=== PATIENT | female | born 1940 | race Caucasian/White ===

== ENCOUNTER 2016-10-19 05:10 | Day surgery (SDC) | payer OTHER ==
[2016-10-12 10:50] VITALS: BMI 31.0
[~2016-10-19] VITALS: Ht 162.6 cm; Wt 83.6 kg
[~2016-10-19 05:10] MED LIST: ASPEC81 PO; CHOL100010 PO; FURO-85 PO; LNX125 PO; METO1TAB69 PO; POTA10CA28 PO; VITA100C4 PO; WARF5TAB90 PO
[2016-10-19 05:37] VITALS: BP 147/104; PULSE 80; TEMP 36.6; O2SAT 97; Ht 162.6 cm; Wt 83.6 kg
[2016-10-19] MEDS ORDERED: CEFAZOLIN 2000 MG/60 ML D5W IV SCH (06:00)
[2016-10-19] MEDS ORDERED: LACTATED RINGER'S 1000ML 1,000 ML IV SCH (06:00)
[2016-10-19] MEDS ORDERED: FENTANYL CITRATE INJ 50 MCG/1 ML 2 ML VIAL ONE (06:28)
[2016-10-19] MEDS ORDERED: PROPOFOL IV EMULSION 10 MG/ML 20 ML VIAL IV ONE (06:28)
[2016-10-19] MEDS ORDERED: MIDAZOLAM HCL 1 MG/ML 2ML VIAL ONE (06:28)
[2016-10-19] MEDS ORDERED: THROMBIN FOR SOLN 20000 UNIT KIT ONE (06:36)
[2016-10-19] MEDS ORDERED: HEPARIN SOD (PORCINE) 1000 UNIT/ML 10 ML VIAL ONE (06:36)
[2016-10-19] MEDS ORDERED: LIDOCAINE HCL 1% 20 ML VIAL ONE (06:36)
[2016-10-19] MEDS ORDERED: CEFAZOLIN SOD 1 GM VIAL ONE (06:36)
--- NOTE | 2016-10-19 06:44 | History & Physical Bridge Note ---
H&P Re-Evaluation Bridge Note: I have examined the patient, reviewed the History & Physical and in the interval since the performance of the History & Physical I have noted the following changes of clinical significance: No changes noted
[2016-10-19] MEDS ORDERED: HYDR-5688 PO ×2 (07:04→07:40)
--- NOTE | 2016-10-19 07:07 | Discharge Instructions ---
Discharge Instructions Date of Service Oct 19, 2016. Visit Reason for Visit: Port-A Cath In Place; Malignant Neoplasm Of Uterus Discharge Discharge Diagnosis / Problem: A-port removal Discharge Goals Goal(s): Increase independence Medications Restart Stopped Medication(s): restart coumadin tomorrow () Activity Recommendations Activity Limitations: as noted below Shower/Bathe: keep incision dry (for 2 days) Driving or Machine Use: Do not drive if taking [place] Anesthesia . Post Anesthesia Instructions: If you have had General Anesthesia or IV Sedation: * Do not drive today. * Resume driving when surgeon permits. * Do not make important decisions or sign legal documents today. * Call surgeon for: 1. Temperature elevations greater than 101 degrees F. 2. Uncontrollable pain. 3. Excessive bleeding. 4. Persistent nausea and vomiting. 5. Medication intolerance (nausea, vomiting or rash). * For nausea and vomiting use only clear liquids such as: tea, soda, bouillon until nausea subsides, then gradually increase diet as tolerated. * If you have any concerns or questions, call your surgeon's office. If physician is unavailable and it is an emergency, call 911 or go to the nearest emergency room. . Instructions / Follow-Up Instructions / Follow-Up Dr. Mcintyre's office in 2 weeks to have sutures removed, [phone] Diet Recommendations Recommended Home Diet: no limitations Pending Studies Studies pending at discharge: no Medical Emergencies . Who to Call and When: Medical Emergencies: If at any time you feel your situation is an emergency, please call 911 immediately. . Non-Emergent Contact Non-Emergency issues call your: Surgeon Call Non-Emergent contact if: you have a fever, temperature is above 101.5, your pain is not controlled, wound has increased redness, you have any medication questions . . "Provider Documentation" section prepared by Amos Dias. .
[2016-10-19 07:30] VITALS: BP 127/82; PULSE 18; PULSE 74; TEMP 36.5; O2SAT 96
--- NOTE | 2016-10-19 07:31 | [facility] Post Operative Brief Note ---
Immediate Operative Summary Operative Date Oct 19, 2016. Pre-Operative Diagnosis port, h/o uterine Ca Post-Operative Diagnosis same Procedure(s) Performed port removal Surgeon Francisco Javier Clam Shucker Surgeon(s) nurses Estimated Blood Loss 5cc Findings port incision made through scar above port in Lt chest using 1% pl lido port dissected free and removed with catheter deep tissue reapproximated with 2-0 plain suture skin closed with 4-0 nylon Specimens port Anesthesia local/ sedation Complication(s) None Disposition Recovery Room / PACU
[2016-10-19] MEDS ORDERED: HYDROCODONE/ACETAMOPHEN 5/325MG TAB PO PRN ×2 (07:45)
[2016-10-19] MEDS ORDERED: ONDANSETRON INJ 2 MG/ML 2 ML VIAL IV PRN (07:45)
[2016-10-19 08:00] VITALS: BP 121/68; PULSE 77; TEMP 36.6; O2SAT 98
[2016-10-19] MEDS ORDERED: ATROPINE SULFATE 0.1 MG/ML 5ML SYR IV PRN (08:00)
[2016-10-19] MEDS ORDERED: EpHEDrine SULFATE INJ 50 MG/ML AMP IV PRN (08:00)
--- NOTE | 2016-10-19 08:01 | Anesthesiology Progress Note ---
Anesthesia Post Op Note Date & Time Oct 19, 2016 at 08:01 Vital Signs Pain Intensity: 0 Vital Signs Past 12 Hours Date Time Temp Pulse Resp B/P (MAP) Pulse Ox O2 Delivery O2 Flow Rate FiO2 10/19/16 07:30 36.5 18 18 127/82 96 Room Air 10/19/16 05:37 36.6 80 20 147/104 (118) 97 Room Air Notes Mental Status: alert / awake / arousable, participated in evaluation Pt Amnestic to Procedure: Yes Nausea / Vomiting: adequately controlled Pain: adequately controlled Airway Patency, RR, SpO2: stable & adequate BP & HR: stable & adequate Hydration State: stable & adequate Anesthetic Complications: no major complications apparent
[2017-01-04] MEDS ORDERED: METO50TA7 PO (14:20)
== END 2016-10-19 08:30 | disposition home or self-care (01) ==
LOC: C.ACU 05:10
PROVIDERS: ATTEND Surgery
DX: C55 Malignant neoplasm of uterus, part unspecified (principal); Z95.828 Presence of other vascular implants and grafts; I48.91 Unspecified atrial fibrillation; I10 Essential (primary) hypertension; M19.90 Unspecified osteoarthritis, unspecified site; E66.9 Obesity, unspecified; Z68.31 Body mass index [BMI] 31.0-31.9, adult; Z85.42 Personal history of malignant neoplasm of other parts of uterus; Z92.21 Personal history of antineoplastic chemotherapy; Z98.49 Cataract extraction status, unspecified eye; Z79.01 Long term (current) use of anticoagulants

== ENCOUNTER → 2016-12-28 | Outpatient (CLI) | payer OTHER ==
[~2016-12-28] MED LIST changes: -LNX125 PO; +METO50TA7 PO
== END | disposition home or self-care (01) ==
LOC: C.LABBC 14:31
PROVIDERS: ATTEND Ophthalmology
DX: H26.491 Other secondary cataract, right eye (principal)

== ENCOUNTER → 2017-11-23 | Outpatient (CLI) | payer OTHER ==
[~2017-11-23] MED LIST changes: -ASPEC81 PO; +ASPI-320 PO; +ASPI81TA28 PO; +BIOT1TAB5 PO; +CMD/25 PO; +DEXA1TAB16 PO; +DXM/4 PO; -METO1TAB69 PO; +METO50TA16 PO; -METO50TA7 PO; +METO50TA8 PO; +POTA10TA30 PO; +PROC10TA PO; +VTMD1000 PO; +WARF2.5T8 PO
[2017-11-23 16:20] LABS: HEMATOCRIT 47.8 % (37-47); HEMOGLOBIN 16.3 g/dL (12.0-16.0); MEAN CELL VOLUME 96.2 fL (80-100); MEAN CORPUSCULAR HEMOGLOBIN 32.8 pg (25-34); MEAN CORPUSCULAR HGB CONC 34.1 g/dl (32-36); MEAN PLATELET VOLUME 12.9 fL (7.4-10.4); PLATELET COUNT 187 K/uL (130-400); RED CELL DISTRIBUTION WIDTH CV 13.2 % (11.5-14.5); RED CELL DISTRIBUTION WIDTH SD 46.5 fL (36.4-46.3); WHITE BLOOD COUNT 0.69 K/uL (4.8-10.8)
[2017-11-23 16:24] LABS: ALKALINE PHOSPHATASE 100 U/L (45-117); ALT/SGPT 37 U/L (12-78); AST/SGOT 19 U/L (15-37); BLOOD UREA NITROGEN 26 mg/dl (7-18); CALCIUM 8.5 mg/dl (8.5-10.1); CARBON DIOXIDE 24 mmol/L (21-32); CREATININE 0.74 mg/dl (0.60-1.20); GLUCOSE 99 mg/dl (70-99); SODIUM 135 mmol/L (136-145); TOTAL PROTEIN 6.2 gm/dl (6.4-8.2)
[2017-11-23 16:48] LABS: BASO % 1.4 %; BASO ABS # 0.01 K/uL (0-0.2); IG# 0.02 K/uL (0.00-0.02); LYMPH % 81.2 %; LYMPH ABS # 0.56 K/uL (1.2-3.4); MONO % 5.8 %; MONO ABS # 0.04 K/uL (0.11-0.59); NEUT % 8.7 %; NEUT ABS # 0.06 K/uL (1.4-6.5)
== END | disposition home or self-care (01) ==
LOC: C.LABSPEC 15:24
PROVIDERS: ATTEND Internal Medicine Hematology & Oncology
DX: C54.1 Malignant neoplasm of endometrium (principal)

== ENCOUNTER 2017-11-27 13:24 | Inpatient (IN) | payer OTHER ==
[~2017-11-27] VITALS: Ht 162.6 cm; Wt 88.3 kg
[~2017-11-27 13:24] MED LIST changes: -ASPI81TA28 PO; -CMD/25 PO; -DEXA1TAB16 PO; -METO50TA16 PO; -POTA10TA30 PO; -VTMD1000 PO
[2017-11-27] MEDS ORDERED: SODIUM CHLORIDE 0.9% 1000ML 1,000 ML IV STA (14:03)
[2017-11-27] MEDS ORDERED: METO50TA16 PO (14:30)
[2017-11-27] MEDS ORDERED: ASPI81TA28 PO (14:30)
[2017-11-27] MEDS ORDERED: CMD/25 PO (14:30)
[2017-11-27] MEDS ORDERED: PROC10TA PO (14:30)
[2017-11-27] MEDS ORDERED: DEXA1TAB16 PO (14:30)
[2017-11-27] MEDS ORDERED: DILTIAZEM BOLUS / DRIP IV STA (14:34)
[2017-11-27] MEDS ORDERED: DILTIAZEM BOLUS FROM BAG IV ONE (14:45)
[2017-11-27 14:57] LABS: INR 2.5 (0.9-1.1)
[2017-11-27] MEDS ORDERED: DILTIAZEM HCL 5 MG/ML 5 ML VIAL ONE (15:09)
[2017-11-27] MEDS: DILTIAZEM HCL INJ 125 MG in DEXTROSE 5% 100ML IV PRN ×2 (15:15→23:30)
[2017-11-27 15:16] LABS: ALBUMIN 2.5 gm/dl (3.4-5.0); ALKALINE PHOSPHATASE 134 U/L (45-117); ALT/SGPT 30 U/L (12-78); AST/SGOT 15 U/L (15-37); BLOOD UREA NITROGEN 18 mg/dl (7-18); CALCIUM 8.4 mg/dl (8.5-10.1); CARBON DIOXIDE 23 mmol/L (21-32); GLUCOSE 110 mg/dl (70-99); LIPASE 98 U/L (73-393); PHOSPHORUS 2.6 mg/dl (2.5-4.9); POTASSIUM 3.8 mmol/L (3.5-5.1); SODIUM 131 mmol/L (136-145); TOTAL PROTEIN 6.4 gm/dl (6.4-8.2)
[2017-11-27 16:00] LABS: HEMATOCRIT 45.8 % (37-47); HEMOGLOBIN 16.4 g/dL (12.0-16.0); MEAN CELL VOLUME 94.6 fL (80-100); MEAN CORPUSCULAR HEMOGLOBIN 33.9 pg (25-34); MEAN CORPUSCULAR HGB CONC 35.8 g/dl (32-36); PLATELET COUNT 189 K/uL (130-400); RED CELL DISTRIBUTION WIDTH CV 12.9 % (11.5-14.5); RED CELL DISTRIBUTION WIDTH SD 44.8 fL (36.4-46.3); WHITE BLOOD COUNT 1.89 K/uL (4.8-10.8)
--- NOTE | 2017-11-27 16:34 | DIAGNOSTIC IMAGING REPORT ---
ABDOMEN 2VIEW W/PA CHEST RTN CLINICAL HISTORY: 77 years-old Female presenting with diarrhea. TECHNIQUE: PA view of the chest and supine and upright views of the abdomen were obtained. COMPARISON: CT from 09/26/2017 and chest x-ray from 12/03/2015. FINDINGS: Atherosclerosis of the aortic arch. Cardiac silhouette top normal in size. Linear opacity in the left midlung. No other focal opacity. No large effusion or pneumothorax. Nonobstructive bowel gas pattern. No gross pneumoperitoneum. Allowing for bowel gas and stool, no calcifications to suggest nephrolithiasis. Numerous pelvic phleboliths. Degenerative changes of the spine. Advanced degenerative changes of the bilateral hip joints. IMPRESSION: 1. Minimal atelectasis or scarring in the left midlung. No convincing evidence of acute cardiopulmonary disease. 2. No radiographic evidence of acute intra-abdominal pathology. Electronically signed by: Robert Gaytan M.D. 11/27/2017 4:32 PM Dictated Date/Time: 11/27/2017 4:29 PM
[2017-11-27] MEDS ORDERED: PIPERACILLIN/TAZOBACTAM 3.375 GM/100ML D5W IV STA (18:08)
[2017-11-27] MEDS ORDERED: VTMD1000 PO (19:20)
[2017-11-27] MEDS ORDERED: POTA10TA30 PO (19:21)
[2017-11-27] MEDS ORDERED: FURO-85 PO (19:21)
--- NOTE | 2017-11-27 19:26 | EMERGENCY ROOM VISIT NOTE ---
History Report prepared by Leanne: Nickie Bae Under the Supervision of: Dr. Samina Guillen D.O. First contact with patient: 13:40 Chief Complaint: NAUSEA Stated Complaint: NOT FEELING WELL S/P CHEMO, NAUSEA, DIZZY Nursing Triage Summary: triage note: pt reports last chemo 1 week ago for enometrial cancer. pt reports increased weakness, nausea, vomitting. History of Present Illness The patient is a 77 year old female who presents to the Emergency Room with complaints of persistent nausea starting 6 days ago. The patient states that she is a chemotherapy patient and received her second round 7 days ago. She reports that since then, anytime she eats she has extreme diarrhea, with more than 20 episodes a day. She notes that her abdomen is gurgling a lot. The patient complains of intermittent chills, weakness, dizziness, and possibly having a UTI. The patient denies vomiting, abdominal pain, fevers, hematochezia , feeling bloated, a history of any intestinal issues, a history of infectious diarrhea, and ever having diarrhea with her previous chemotherapy. Source of History: patient Onset: 6 days ago Position: abdomen Quality: other (nausea) Timing: other (persistent) Associated Symptoms: + chills, + diarrhea, + urinary symptoms, + weakness, No fevers, No vomiting, No abdominal pain, No hematochezia Note: The patient complains of her abdomen gurgling a lot and dizziness. The patient denies feeling bloated. Review of Systems See HPI for pertinent positives & negatives. A total of 10 systems reviewed and were otherwise negative. Past Medical & Surgical Medical Problems: (1) Afib (2) Atrial fibrillation with RVR (3) Diarrhea (4) Dyslipidemia (5) Port-a-cath in place (6) Uterine carcinoma Surgical Problems: (1) History of cataract surgery (2) History of hysterectomy (3) Hx of colonoscopy (4) S/P tonsillectomy Family History FH: colon cancer SISTER Thyroid disorder SISTER MOTHER Social History Smoking Status: Never Smoker Drug Use: none Marital Status: Housing Status: lives with family Occupation Status: retired Current/Historical Medications Scheduled Aspirin (Aspirin Ec), 81 MG PO DAILY Cholecalciferol (Vitamin D3), 1 TAB PO DAILY Dexamethasone (Dexamethasone), 8 MG PO UD Metoprolol Tartrate (Lopressor) (Lopressor), 50 MG PO BID Warfarin Sod (Coumadin), 2.5 MG PO UD Scheduled PRN Furosemide (Lasix), 20 MG PO DAILY PRN for as needed Potassium Chloride (Potassium Chloride Cr), 10 MEQ PO DAILY PRN for as needed Prochlorperazine Maleate (Compazine), 10 MG PO Q6H PRN for Nausea Allergies Coded Allergies: No Known Allergies (Unverified , 10/19/16) Physical Exam Vital Signs Date Time Temp Pulse Resp B/P (MAP) Pulse Ox O2 Delivery O2 Flow Rate FiO2 11/27/17 18:10 103 18 142/90 98 Room Air 11/27/17 17:46 142/99 Room Air 11/27/17 17:45 94 17 Room Air 11/27/17 17:31 134/98 Room Air 11/27/17 17:30 109 19 95 Room Air 11/27/17 17:15 106 18 133/64 97 Room Air 11/27/17 17:00 95 16 139/83 97 Room Air 11/27/17 16:45 97 14 114/89 97 Room Air 11/27/17 16:30 91 18 134/71 98 Room Air 11/27/17 16:15 103 18 137/91 96 Room Air 11/27/17 16:00 116 16 135/90 96 Room Air 11/27/17 15:30 115 18 164/93 96 Room Air 11/27/17 15:17 110 18 157/95 96 Room Air 11/27/17 15:04 137 11/27/17 13:32 36.7 122 20 104/71 97 Room Air Physical Exam GENERAL: alert, uncomfortable appearing, well nourished, no distress, non-toxic EYE EXAM: normal conjunctiva, PERRL and EOM's grossly intact OROPHARYNX: no exudate, no erythema, lips, buccal mucosa, and tongue normal and mucous membranes are dry NECK: supple, no nuchal rigidity, no adenopathy, non-tender LUNGS: Clear to auscultation. Normal chest wall mechanics, no w/r/r HEART: no murmurs, S1 normal and S2 normal ABDOMEN: abdomen soft, non-tender, normo-active bowel sounds, no masses, no rebound or guarding. BACK: Back is symmetrical on inspection and there is no deformity, no midline tenderness, no CVA tenderness. SKIN: no rashes and no bruising UPPER EXTREMITIES: upper extremities are grossly normal. FROM, nml pulses. LOWER EXTREMITIES: No pitting edema. FROM, nml pulses. NEURO EXAM: Normal sensorium, cranial nerves II-XII grossly intact, normal speech, no gross weakness of arms, no gross weakness of legs. Medical Decision & Procedures ER Provider Diagnostic Interpretation: Radiology results have been interpreted by the radiologist and reviewed by me. ABDOMEN 2VIEW W/PA CHEST RTN CLINICAL HISTORY: 77 years-old Female presenting with diarrhea. TECHNIQUE: PA view of the chest and supine and upright views of the abdomen were obtained. COMPARISON: CT from 09/26/2017 and chest x-ray from 12/03/2015. FINDINGS: Atherosclerosis of the aortic arch. Cardiac silhouette top normal in size. Linear opacity in the left midlung. No other focal opacity. No large effusion or pneumothorax. Nonobstructive bowel gas pattern. No gross pneumoperitoneum. Allowing for bowel gas and stool, no calcifications to suggest nephrolithiasis. Numerous pelvic phleboliths. Degenerative changes of the spine. Advanced degenerative changes of the bilateral hip joints. IMPRESSION: 1. Minimal atelectasis or scarring in the left midlung. No convincing evidence of acute cardiopulmonary disease. 2. No radiographic evidence of acute intra-abdominal pathology. Electronically signed by: Robert Gaytan M.D. 11/27/2017 4:32 PM Dictated Date/Time: 11/27/2017 4:29 PM Laboratory Results Test 11/27/17 14:25 Basophils % (Manual) 1.8 % Myelocytes % 4.4 % Basophils # (Manual) 0.03 K/uL (0-0.2) Myelocytes # 0.08 K/uL (0-0) Polychromasia 1+ Peripheral Blood Smear Path Consult Phosphorus Level 2.6 mg/dl (2.5-4.9) Lipase 98 U/L (73-393) Thyroid Stimulating Hormone (TSH) 0.540 uIu/ml (0.300-4.500) Laboratory results per my review. Medications Administered Medications (Trade) Dose Ordered Sig/Glenda Route Start Time Stop Time Status Last Admin Dose Admin Sodium Chloride 1,000 ml @ 999 mls/hr Q1H1M STAT IV 11/27/17 14:03 11/27/17 15:03 DC 11/27/17 15:16 999 MLS/HR Diltiazem HCl 125 mg/Dextrose 125 ml @ 0 mls/hr Q0M PRN IV 11/27/17 14:45 11/29/17 16:04 DC 11/27/17 23:30 10 MLS/HR Diltiazem HCl (Cardizem Inj) 25 mg STK-MED ONCE .ROUTE 11/27/17 15:09 11/27/17 15:10 DC 11/27/17 15:11 10 MG Piperacillin Sod/ Tazobactam Sod (Zosyn Iv) 3.375 gm NOW STAT IV 11/27/17 18:08 11/27/17 18:10 DC 11/27/17 19:41 3.375 GM ECG Per My Interpretation Indication: nausea Rate (beats per minute): 185 Rhythm: atrial fibrillation Findings: ST depression (V3-V6), T-wave inversion (leads 1 and aVL), left axis deviation, other (normal QRs, normal QT-c) ED Course 1352: The patient was evaluated in room B6. A complete history and physical exam was performed. 1403: Ordered NSS 1000 ml @ 999 mls/hr IV. 1434: Ordered Diltiazem HCl 1 ea IV. 1445: I reevaluated the patient and and she reports that she has a known history of atrial fibrillation. She notes that she usually takes Metoprolol, but has not been able to keep her medications down. 1450: I paged Dr. Packer- Oncology at this time. 1509: Ordered Diltiazem HCl 10 mg IV. 1713: I reevaluated the patient and she is still having diarrhea. I updated her on her treatment plan and she verbally agreed and understood. 1715: I paged Dr. Packer- Oncology for a second time at this time. 1808: Ordered Zosyn Iv 3.375 gm IV. 1813: I reviewed the patient's case with GAVINO Lemos- [facility]. She will evaluate the patient for further management. I notified her that I tried to speak to Dr. Packer- Oncology, but he never called back. 1924: Dr. Packre called back. Discussed patient's presentation and treatment so far. He is agreeable with plan. No additional recommendations. Medical Decision Differential Diagnosis includes but is not limited to dehydration, stroke, anemia, hypoglycemia, hyponatremia, hypernatremia, urinary tract infection, pneumonia, bronchitis, sepsis, gastroenteritis, additional abdominal pathology, metabolic abnormalities and infections. Patient well-appearing here, persistent diarrhea likely contributing to dehydration and decreased appetite secondary to chemo contributing to dehydration also. Patient did not have a fever. Patient found to be leukopenic although it is improved compared to outpatient labs within the last several days. Patient's ANC low, case discussed with oncology, stool and blood cultures sent, patient given 1 dose of Zosyn to cover for potential intra- abdominal infection. Given patient has been unable to take routine medications due to nausea and intermittent vomiting, patient had atrial fibrillation with RVR. Patient with known A. fib and anticoagulated. Patient with therapeutic INR. Given patient's persistent nausea and poor p.o. intake, patient started on Cardizem IV. Medication Reconcilliation Current Medication List: was personally reviewed by me Blood Pressure Screening Patient's blood pressure: Elevated blood pressure Will be further monitored by the hospitalist. Consults Time Called: 1808 Consulting Physician: ORLANDO Lemostialbrandon Returned Call: 1813 I reviewed the patient's case with ORLANDO Lemos Hosptialbrandon. She will evaluate the patient for further management. I notified her that I tried to speak to Dr. Packer- Oncology, but have not been called back. Impression Primary Impression: Diarrhea Additional Impressions: Leukopenia Dehydration Atrial fibrillation with RVR Critical Care I have personally spent 45 minutes of critical care time in the direct management of this patient. This includes bedside care, interpretation of diagnostic studies, and testing, discussion with consultants, patient, and family members, and other required patient management activities. This 45 minutes is in excess of all separately billable procedures. Scribe Attestation The scribe's documentation has been prepared under my direction and personally reviewed by me in its entirety. I confirm that the note above accurately reflects all work, treatment, procedures, and medical decision making performed by me. Departure Information Dispostion Being Evaluated By Hospitalist Referrals Chyna Newton DO (PCP) Patient Instructions My [facility] Problem Qualifiers Primary Impression: Diarrhea Diarrhea type: unspecified type Qualified Codes: R19.7 - Diarrhea, unspecified Additional Impressions: Leukopenia Leukopenia type: unspecified Qualified Codes: D72.819 - Decreased white blood cell count, unspecified
[2017-11-27] MEDS ORDERED: PIPERACILL/TAZOBAC CONSULT ACTIVE PRN (19:30)
--- NOTE | 2017-11-27 19:36 | History and Physical ---
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 Postoperatively she received 6 cycles of Carbo/Taxol with the [facility] ( completed 11/2014), followed by external beam and [address] HDR VCBT completed by Dr. Ivy (completed 02/2015). Currently on chemo last one was last Monday. Pt said that since her last chemotherapy, he has been having nausea and watery diarrhea. Pt said that anything she eats, she has diarrhea. she said that she had more than 20 episodes of diarrhea per day. She said that water seems to make her nausea and diarrhea worst. she said that she feels very weak with no energy. She said that she does have chills. She said that she has not been taking her meds because she feels so weak to get out of bed to take them. She said that her coumadin was on hold because her INR was above 4. She said that she was in the ER last for similar complaints and was given IVF and discharged. In the ER she was in Afib with HR max in the 130's and started on Cardizem drip. Denies any chest pain, palpitation, dizziness, fever and SOB. Past Medical/Surgical History Medical Problems: (1) Afib (2) Atrial fibrillation with rapid ventricular response (3) Atrial fibrillation with RVR (4) Diarrhea (5) Dyslipidemia (6) Port-a-cath in place (7) Uterine carcinoma Surgical Problems: (1) History of cataract surgery (2) History of hysterectomy (3) Hx of colonoscopy (4) S/P tonsillectomy Family History FH: colon cancer SISTER Thyroid disorder SISTER MOTHER Social History Smoking Status: Never Smoker Drug Use: none Marital Status: Occupational Status: retired Immunizations History of Influenza Vaccine: Yes History of Tetanus Vaccine?: Unknown History of Pneumococcal: Yes History of Hepatitis B Vaccine: No Allergies Coded Allergies: No Known Allergies (Unverified , 10/19/16) Home Medications Scheduled Aspirin (Aspirin Ec), 81 MG PO DAILY Cholecalciferol (Vitamin D3), 1 TAB PO DAILY Dexamethasone (Dexamethasone), 8 MG PO UD Metoprolol Tartrate (Lopressor) (Lopressor), 50 MG PO BID Warfarin Sod (Coumadin), 2.5 MG PO UD Scheduled PRN Furosemide (Lasix), 20 MG PO DAILY PRN for as needed Potassium Chloride (Potassium Chloride Cr), 10 MEQ PO DAILY PRN for as needed Prochlorperazine Maleate (Compazine), 10 MG PO Q6H PRN for Nausea Review of Systems Constitutional: + chills, + weakness, + fatigue Eyes: No eye pain ENT: No nasal symptoms, No sore throat Respiratory: + dyspnea on exertion, No cough, No sputum Cardiovascular: No chest pain, No orthopnea Abdomen: + nausea, + diarrhea Musculoskeletal: No calf pain Genitourinary - Female: No dysuria Neurologic: + weakness, No memory loss, No paralysis Psychiatric: No substance abuse Endocrine: + fatigue Hematologic / Lymphatic: No abnormal bleeding/bruising Integumentary: No rash, No itch Physical Exam Vital Signs Date Time Temp Pulse Resp B/P (MAP) Pulse Ox O2 Delivery O2 Flow Rate FiO2 11/27/17 18:10 103 18 142/90 98 Room Air 11/27/17 17:46 142/99 Room Air 11/27/17 17:45 94 17 Room Air 11/27/17 17:31 134/98 Room Air 11/27/17 17:30 109 19 95 Room Air 11/27/17 17:15 106 18 133/64 97 Room Air 11/27/17 17:00 95 16 139/83 97 Room Air 11/27/17 16:45 97 14 114/89 97 Room Air 11/27/17 16:30 91 18 134/71 98 Room Air 11/27/17 16:15 103 18 137/91 96 Room Air 11/27/17 16:00 116 16 135/90 96 Room Air 11/27/17 15:30 115 18 164/93 96 Room Air 11/27/17 15:17 110 18 157/95 96 Room Air 11/27/17 15:04 137 11/27/17 13:32 36.7 122 20 104/71 97 Room Air General Appearance: WD/WN, no apparent distress Head: normocephalic, atraumatic Eyes: PERRL, EOMI ENT: hearing grossly normal Neck: no JVD, trachea midline Respiratory/Chest: lungs clear, no respiratory distress, no accessory muscle use Cardiovascular: no JVD, + irregularly irregular Abdomen/GI: normal bowel sounds, non tender Back: no CVA tenderness Extremities/Musculoskelatal: no calf tenderness Neurologic/Psych: no motor/sensory deficits, alert, oriented x 3 Skin: warm/dry, no rash Diagnostics Laboratory Results Results Past 24 Hours Test 11/27/17 14:25 11/27/17 19:28 Range/Units White Blood Count 1.89 4.8-10.8 K/uL Red Blood Count 4.84 4.2-5.4 M/uL Hemoglobin 16.4 12.0-16.0 g/dL Hematocrit 45.8 37-47 % Mean Corpuscular Volume 94.6 80-100 fL Mean Corpuscular Hemoglobin 33.9 25-34 pg Mean Corpuscular Hemoglobin Concent 35.8 32-36 g/dl Platelet Count 189 130-400 K/uL Mean Platelet Volume 12.0 7.4-10.4 fL RDW Standard Deviation 44.8 36.4-46.3 fL RDW Coefficient of Variation 12.9 11.5-14.5 % Neutrophils % (Manual) 28.9 % Lymphocytes % (Manual) 28.1 % Monocytes % (Manual) 25.4 % Basophils % (Manual) 1.8 % Metamyelocytes % 3.5 % Myelocytes % 4.4 % Promyelocytes % 7.9 % Neutrophils # (Manual) 0.55 1.4-6.5 K/uL Total Absolute Neutrophils 0.55 1.4-6.5 K/uL Lymphocytes # (Manual) 0.53 1.2-3.4 K/uL Total Absolute Lymphocytes 0.53 1.2-3.4 K/uL Monocytes # (Manual) 0.48 0.11-0.59 K/uL Basophils # (Manual) 0.03 0-0.2 K/uL Metamyelocytes # 0.07 0-0 K/uL Myelocytes # 0.08 0-0 K/uL Promyelocytes # 0.15 0-0 K/uL Polychromasia 1+ Echinocytes 1+ Peripheral Blood Smear Path Consult Prothrombin Time 26.0 9.0-12.0 SECONDS Prothromb Time International Ratio 2.5 0.9-1.1 Sodium Level 131 136-145 mmol/L Potassium Level 3.8 3.5-5.1 mmol/L Chloride Level 97 98-107 mmol/L Carbon Dioxide Level 23 21-32 mmol/L Anion Gap 11.0 3-11 mmol/L Blood Urea Nitrogen 18 7-18 mg/dl Creatinine 0.80 0.60-1.20 mg/dl Est Creatinine Clear Calc Drug Dose 61.0 ml/min Estimated GFR () 82.4 Estimated GFR (Non- 71.1 BUN/Creatinine Ratio 22.7 10-20 Random Glucose 110 70-99 mg/dl Calcium Level 8.4 8.5-10.1 mg/dl Phosphorus Level 2.6 2.5-4.9 mg/dl Magnesium Level 1.9 1.8-2.4 mg/dl Total Bilirubin 1.2 0.2-1 mg/dl Aspartate Amino Transf (AST/SGOT) 15 15-37 U/L Alanine Aminotransferase (ALT/SGPT) 30 12-78 U/L Alkaline Phosphatase 134 45-117 U/L Troponin I < 0.015 0-0.045 ng/ml Total Protein 6.4 6.4-8.2 gm/dl Albumin 2.5 3.4-5.0 gm/dl Globulin 3.9 2.5-4.0 gm/dl Albumin/Globulin Ratio 0.6 0.9-2 Lipase 98 73-393 U/L Thyroid Stimulating Hormone (TSH) 0.540 0.300-4.500 uIu/ml Microbiology Results 11/27/17 Blood Culture, Received Pending 11/27/17 Blood Culture, Received Pending Diagnostic Radiology ABDOMEN 2VIEW W/PA CHEST RTN CLINICAL HISTORY: 77 years-old Female presenting with diarrhea. TECHNIQUE: PA view of the chest and supine and upright views of the abdomen were obtained. COMPARISON: CT from 09/26/2017 and chest x-ray from 12/03/2015. FINDINGS: Atherosclerosis of the aortic arch. Cardiac silhouette top normal in size. Linear opacity in the left midlung. No other focal opacity. No large effusion or pneumothorax. Nonobstructive bowel gas pattern. No gross pneumoperitoneum. Allowing for bowel gas and stool, no calcifications to suggest nephrolithiasis. Numerous pelvic phleboliths. Degenerative changes of the spine. Advanced degenerative changes of the bilateral hip joints. IMPRESSION: 1. Minimal atelectasis or scarring in the left midlung. No convincing evidence of acute cardiopulmonary disease. 2. No radiographic evidence of acute intra-abdominal pathology. Electronically signed by: Robert Gaytan M.D. 11/27/2017 4:32 PM Dictated Date/Time: 11/27/2017 4:29 PM Impression Assessment and Plan Nausea Associated with Diarrhea and Chills Mostly related to Chemo Last Chemo was last Monday Abd Xray showed minimal atelectasis or scarring in the left midlung. No convincing evidence of acute cardiopulmonary disease. Received IVF in the ER Received Zosyn in the ER, will continue for now Continue IVF and Zofran Will check stool for Cdiff Check blood cx Chronic Afib with RVR HR on admission was in the 130's has not been taking her metoprolol due to nausea/fatigue Starting on Cardizem drip in the ER, Continue for now Will start metoprolol po if able to tolerate Troponin on admission normal Recent Holter monitor in 09/08 INR therapeutic Will continue coumadin for now If unable to tolerate any po, once INR below 2 will start on heparin drip Check echo in am cardiology consult Endometrial Carcinoma Last chemo was last Monday Follow with Dr. Araujo Will consult Oncology Neutropenia WBC on admission 1.8 with absolute neutrophil 0.55 Continue monitor CBC Weakness Due to Acute illness Fall precaution PT/OT DVT px On Coumadin INR therapeutic CODE STATUS FULL CODE Resuscitation Status VTE Prophylaxis Will order VTE Prophylaxis: Yes
[2017-11-27] MEDS: ONDANSETRON INJ 2 MG/ML 2 ML VIAL IV PRN (19:53)
[2017-11-27 20:20] VITALS: BP 116/71; TEMP 37; Ht 162.6 cm; Wt 88.3 kg
[2017-11-27 20:24] VITALS: BP 116/71; PULSE 116; TEMP 37; O2SAT 95
[2017-11-27] MEDS ORDERED: WARFARIN SOD 2 MG TAB PO ONE (20:30)
[2017-11-27] MEDS: SODIUM CHLORIDE 0.9% 1000ML 1,000 ML IV SCH (21:42)
[2017-11-27] MEDS: METOPROLOL TARTRATE 50 MG TAB PO SCH (21:43)
[2017-11-27 23:27] VITALS: BP 122/76; PULSE 94; TEMP 36.4; O2SAT 97
[2017-11-28] VITALS (8 sets, daily range): BP systolic 94–143; BP diastolic 65–85; PULSE 62–99; TEMP 36.5–37.2; O2SAT 96–98
[2017-11-28] MEDS: PIPERACILL/TAZOBAC IV 3.375 GM in DEXTROSE 5% 100ML 100 ML IV SCH ×3 (02:16→18:33)
[2017-11-28] MEDS ORDERED: LOPERAMIDE HCL 2 MG CAP PO PRN (04:00)
[2017-11-28 06:05] LABS: INR 2.6 (0.9-1.1)
[2017-11-28 06:22] LABS: HEMATOCRIT 39.2 % (37-47); HEMOGLOBIN 13.4 g/dL (12.0-16.0); MEAN CELL VOLUME 96.3 fL (80-100); MEAN CORPUSCULAR HEMOGLOBIN 32.9 pg (25-34); MEAN CORPUSCULAR HGB CONC 34.2 g/dl (32-36); NUCLEATED RED BLOOD CELL ABS 0.43 K/uL (0-0); PLATELET COUNT 191 K/uL (130-400); RED CELL DISTRIBUTION WIDTH CV 13.2 % (11.5-14.5); RED CELL DISTRIBUTION WIDTH SD 45.9 fL (36.4-46.3); WHITE BLOOD COUNT 3.27 K/uL (4.8-10.8)
[2017-11-28] MEDS: SODIUM CHLORIDE 0.9% 1000ML 1,000 ML IV SCH ×2 (06:32→15:44)
[2017-11-28 06:34] LABS: CALCIUM 7.8 mg/dl (8.5-10.1); CREATININE 0.65 mg/dl (0.60-1.20); POTASSIUM 3.3 mmol/L (3.5-5.1)
[2017-11-28] MEDS ORDERED: LOPERAMIDE LIQUID 1MG/7.5ML 120ML BTL PO PRN (06:45)
[2017-11-28] MEDS: ASPIRIN 81 MG ECTAB PO SCH (07:37)
[2017-11-28] MEDS: METOPROLOL TARTRATE 50 MG TAB PO SCH ×2 (07:37→20:42)
[2017-11-28] MEDS ORDERED: MAGNESIUM SULFATE 1GM / D5W 100 ML IV ONE (09:00)
[2017-11-28] MEDS: POTASSIUM CHLR 10 MEQ / WTR 100 ML IV SCH ×2 (09:23→10:31)
[2017-11-28] MEDS: ONDANSETRON INJ 2 MG/ML 2 ML VIAL IV PRN ×2 (10:36→16:49)
--- NOTE | 2017-11-28 11:41 | Cardiology Consultation ---
Cardiology Consultation Date of Consultation: Nov 28, 2017 Requesting Physician: Kiel Attending Gun [employer] Manager: Melany (Bandar Rowland PA-C) History of Present Illness Ms. Harris is a 77 year old female who is being seen at the request of Dr. Dyson. Reason for consultation is atrial fibrillation with a rapid ventricular response. Patient with a history of chronic atrial fibrillation treated with rate control and chronic Coumadin anticoagulation. 24-hour Holter monitoring in August 2017 well on metoprolol 50 mg twice per day showed atrial fibrillation with a average heart rate of 91 bpm. Minimum heart rate was 49 bpm. Maximum heart rate was 187 bpm. She is currently receiving chemotherapy for endometrial carcinoma. Patient notes poor oral intake, up to 20 episodes of diarrhea per day, and nausea without vomiting since her last chemotherapy treatment. She has been intermittently unable to take metoprolol. INR has been supratherapeutic requiring transient holding of Coumadin anticoagulation. In the emergency room the patient was noted to be in atrial fibrillation with a rapid ventricular response. IV Cardizem initiated. Review of her continuous quality assurance monitor body reveals chronic atrial fibrillation with heart rates ranging from 80-170 bpm. There was one episode of ventricular tachycardia lasting 5 beats in duration. At the time of my evaluation the patient is bradycardic in the 50s, currently on 5 mg of IV diltiazem. She is free of palpitations. No chest pain. No new or worsening shortness of breath. No orthopnea or PND. (Bandar Rowland PA-C) Past Medical/Surgical History Problem List: Chronic atrial fibrillation Endometrial cancer Dyslipidemia History of retinal hemorrhage, detached retina Status post laser trabeculoplasty Status post total abdominal hysterectomy Status post cataract extraction Status post tonsillectomy as a child Status post omentectomy Status post a port placement (Bandar Rowland PA-C) Family History FH: colon cancer SISTER Thyroid disorder SISTER MOTHER Not notable for cardiac disease. Sister with colon cancer. (Bandar Rowland PA-C) FH: colon cancer SISTER Thyroid disorder SISTER MOTHER (Jim Mosley DO) Social History Non-smoker. Social alcohol. No illegal drug use. Smoking Status: Unknown if Ever Smoked Drug Use: none Marital Status: Occupation: retired (Bandar Rowland PA-C) Review Of Systems Dizziness. Chills. Generalized weakness. Dysuria. Intolerance to oral diltiazem, reaction unknown Complete review of system is otherwise as stated above, negative, or noncontributory. (Bandar Rowland PA-C) Allergies Coded Allergies: No Known Allergies (Unverified , 10/19/16) Medications Reported Home Medications Medications Dose Route/Sig Max Daily Dose Days Date Category Dose Instructions Potassium Chloride Cr (Potassium Chloride) 10 Meq Tab 10 Meq PO DAILY PRN 11/27/17 Reported Lasix (Furosemide) 20 Mg Tab 20 Mg PO DAILY PRN 11/27/17 Reported Vitamin D3 (Cholecalciferol) 1,000 Inter.unit Tab 1 Tab PO DAILY 11/27/17 Reported Aspirin Ec (Aspirin) 81 Mg Tab 81 Mg PO DAILY 11/27/17 Reported Coumadin (Warfarin Sod) 2.5 Mg Tab 2.5 Mg PO UD 11/27/17 Reported Lopressor (Metoprolol Tartrate) 50 Mg Tab 50 Mg PO BID 11/27/17 Reported Compazine (Prochlorperazine Maleate) 10 Mg Tab 10 Mg PO Q6H PRN 11/27/17 Reported Dexamethasone 4 Mg Tab 8 Mg PO UD 11/27/17 Reported TWO 4 MG TABLETS ON DAY BEFORE, OF AND AFTER THERAPY. (Bandar Rowland PA-C) Physical Exam Vital Signs (Last 8hrs): Last 8 Hrs Date Time Temp Pulse Resp B/P (MAP) Pulse Ox O2 Delivery O2 Flow Rate FiO2 11/28/17 10:48 64 18 11/28/17 08:08 96 Room Air 11/28/17 06:50 36.9 82 19 113/79 (90) 96 Room Air 11/28/17 03:51 36.9 92 20 112/75 (87) 98 Room Air General: Alert and Oriented x3. Chronically ill appearing. Pale. NAD. HEENT: Normocephalic Atraumatic. PER, EOMI, conjunctiva and sclera pale Neck: Neck veins are flat. Respiratory: Clear to auscultation bilaterally. Cardiovascular: Somewhat distant heart sounds. Irregularly irregular in the 60' s. I could not appreciate any murmurs. No rub. Abdomen: +BS. Extremities: Lymphedematous type changes. No significant edema Neuro: No focal deficits. Psychiatric: Normal affect. (Bandar Rowland PA-C) Data Last 24 Hours Test 11/27/17 14:25 11/27/17 20:36 11/27/17 23:50 11/28/17 05:16 White Blood Count 1.89 K/uL 3.27 K/uL Red Blood Count 4.84 M/uL 4.07 M/uL Hemoglobin 16.4 g/dL 13.4 g/dL Hematocrit 45.8 % 39.2 % Mean Corpuscular Volume 94.6 fL 96.3 fL Mean Corpuscular Hemoglobin 33.9 pg 32.9 pg Mean Corpuscular Hemoglobin Concent 35.8 g/dl 34.2 g/dl Platelet Count 189 K/uL 191 K/uL Mean Platelet Volume 12.0 fL 12.0 fL RDW Standard Deviation 44.8 fL 45.9 fL RDW Coefficient of Variation 12.9 % 13.2 % Neutrophils % (Manual) 28.9 % 48.7 % Lymphocytes % (Manual) 28.1 % 10.4 % Monocytes % (Manual) 25.4 % 26.1 % Basophils % (Manual) 1.8 % Metamyelocytes % 3.5 % 9.6 % Myelocytes % 4.4 % Promyelocytes % 7.9 % 5.2 % Neutrophils # (Manual) 0.55 K/uL 1.59 K/uL Total Absolute Neutrophils 0.55 K/uL 1.59 K/uL Lymphocytes # (Manual) 0.53 K/uL 0.34 K/uL Total Absolute Lymphocytes 0.53 K/uL 0.34 K/uL Monocytes # (Manual) 0.48 K/uL 0.85 K/uL Basophils # (Manual) 0.03 K/uL Metamyelocytes # 0.07 K/uL 0.31 K/uL Myelocytes # 0.08 K/uL Promyelocytes # 0.15 K/uL 0.17 K/uL Polychromasia 1+ Echinocytes 1+ 1+ Peripheral Blood Smear Path Consult Prothrombin Time 26.0 SECONDS 27.0 SECONDS Prothromb Time International Ratio 2.5 2.6 Sodium Level 131 mmol/L 137 mmol/L Potassium Level 3.8 mmol/L 3.3 mmol/L Chloride Level 97 mmol/L 103 mmol/L Carbon Dioxide Level 23 mmol/L 25 mmol/L Anion Gap 11.0 mmol/L 9.0 mmol/L Blood Urea Nitrogen 18 mg/dl 16 mg/dl Creatinine 0.80 mg/dl 0.65 mg/dl Est Creatinine Clear Calc Drug Dose 61.0 ml/min 75.1 ml/min Estimated GFR () 82.4 99.3 Estimated GFR (Non- 71.1 85.6 BUN/Creatinine Ratio 22.7 23.9 Random Glucose 110 mg/dl 118 mg/dl Calcium Level 8.4 mg/dl 7.8 mg/dl Phosphorus Level 2.6 mg/dl Magnesium Level 1.9 mg/dl 1.7 mg/dl Total Bilirubin 1.2 mg/dl Aspartate Amino Transf (AST/SGOT) 15 U/L Alanine Aminotransferase (ALT/SGPT) 30 U/L Alkaline Phosphatase 134 U/L Troponin I < 0.015 ng/ml < 0.015 ng/ml Total Protein 6.4 gm/dl Albumin 2.5 gm/dl Globulin 3.9 gm/dl Albumin/Globulin Ratio 0.6 Lipase 98 U/L Thyroid Stimulating Hormone (TSH) 0.540 uIu/ml Urine Color YELLOW Urine Appearance CLEAR Urine pH 5.0 Urine Specific [place] 1.016 Urine Protein NEG Urine Glucose (UA) NEG Urine Ketones 1+ Urine Occult Blood 2+ Urine Nitrite NEG Urine Bilirubin NEG Urine Urobilinogen NEG Urine Leukocyte Esterase SMALL Urine WBC (Auto) 10-30 /hpf Urine RBC (Auto) 10-30 /hpf Urine Hyaline Casts (Auto) 1-5 /lpf Urine Epithelial Cells (Auto) 20-30 /lpf Urine Bacteria (Auto) NEG Nucleated RBC Absolute Count (auto) 0.43 K/uL Nucleated Red Blood Cells % 13.2 % Admission EKG revealed atrial fibrillation with a very rapid ventricular response. Ventricular rate was 185 bpm. There were premature ventricular or aberrantly conducted complexes. There was voltage criteria for left ventricular hypertrophy. There are lateral T-wave changes suggestive of ischemia and nonspecific ST-T wave changes elsewhere. Admission chest/abdomen x-ray revealed minimal atelectasis or scarring in the left midlung. No convincing evidence of acute cardiopulmonary disease observed per radiological interpretation. No radiographic evidence of acute intra- abdominal pathology per radiological interpretation. Continuous telemetry monitoring reveals the chronic atrial fibrillation ranging from the 50s-170s. One 5 beat run of ventricular tachycardia, asymptomatic. No periods of sinus. (Bandar Rowland PA-C) Assessment & Plan Elevated/rapid ventricular response to chronic atrial fibrillation felt to be secondary to intravascular volume depletion from GI losses as well as transient withdrawal of beta-simon therapy. Heart rates have come under much better control following resumption of metoprolol as well as utilization of IV diltiazem; she is currently bradycardic. IV diltiazem will be weaned and discontinued. She should continue metoprolol as presently prescribed. If additional heart rate control as needed would increase metoprolol as blood pressure allows prior to considering the addition of digoxin. She is chronically anticoagulated with recent supratherapeutic INR, currently therapeutic at 2.6. Further recommendations pending the results of her resting echocardiogram, evaluation by Dr. Mosley, and her ongoing hospitalization. (Bandar Rowland, RAGHAV) Cardiology Attending Physician: Patient seen and examined at the bedside. Reports feeling fatigued and washed out. Diarrhea improved today. Heart rate improved significantly with resumption of oral beta-simon and intravenous Cardizem. Cardizem infusion discontinued earlier today due to bradycardia. No significant pauses or symptomatic bradycardia reported. Hemodynamically stable. Denies chest pain or shortness of breath. INR is therapeutic. PE: General: No acute distress, chronically ill, pale. Heart: Irregular, normal S1, normal S2. No murmur appreciated. Lungs: Clear bilateral, no rales , rhonchi, wheeze. Extremities: No edema. A/P: Agree with above RAGHAV history, physical exam, assessment and plan. Continue oral metoprolol with plans to titrate as needed to maintain adequate rate control. Coumadin will be dosed for goal INR of 2.0-3.0 cautiously given recent supratherapeutic INRs. Continue telemetry monitoring during hospitalization. Resting 2D transthoracic echocardiogram reviewed demonstrating stable findings with preserved LV systolic function and severe left atrial enlargement. Neel Mosley DO, [facility] (Jim Mosley, DO)
--- NOTE | 2017-11-28 12:25 | ONCOLOGY CONSULTATION ---
DATE OF CONSULTATION: 11/27/2017 REASON FOR CONSULTATION: Intractable diarrhea, nausea and vomiting attributable to chemotherapeutic effect. HISTORY OF PRESENT ILLNESS: Colleen is a pleasant 77-year-old female patient well known to [facility] admitted yesterday because of intractable nausea and vomiting as well as diarrhea. Colleen was recently diagnosed with metastatic endometrial carcinoma and recommended weekly carboplatin and paclitaxel. She was in the midst of her first cycle and received two of three scheduled treatments moving forward. Unfortunately, a day or two after receiving a course #2, she developed watery diarrhea, which for the most part has been an all day event. She estimates at least 20 episodes of watery diarrhea per day. Her appetite is diminished to the point where she has had very little p.o. intake. She was in the Emergency Room last with similar complaints and resuscitated with IV fluid and subsequently discharged. Unfortunately, during her ER visit yesterday developed atrial fibrillation with ventricular rate of 130 and was started on Cardizem drip. Colleen has been pancultured including stools and receiving vigorous IV hydration on monitored bed at present. PAST MEDICAL HISTORY: Again, significant for metastatic endometrial carcinoma, atrial fibrillation, dyslipidemia. PAST SURGICAL HISTORY: Hysterectomy, colonoscopy, tonsillectomy and cataract surgery. MEDICATIONS: Prior to admission include Coumadin 2.5 mg p.o. daily, Lopressor 50 mg p.o. b.i.d., dexamethasone 8 mg prior to chemotherapy, cholecalciferol one tablet p.o. daily, aspirin 81 mg p.o. daily, p.r.n. include Lasix, potassium chloride and Compazine. ALLERGIES: No known drug allergies. SOCIAL HISTORY: The patient is retired, and lives with her . She is nonsmoker and nondrinker. FAMILY HISTORY: Positive for colorectal cancer involving her sister, her sister and mother also suffered from thyroid disease. REVIEW OF SYSTEMS: As per HPI, most notably for generalized weakness, fatigue, anorexia. GENERAL: Negative for fevers or chills or night sweats. SKIN: No rashes or lesions. No history of dermatoses. HEENT: She denies headaches, lightheadedness or dizziness. No acute visual or hearing deficits. No sinus symptoms, sore throat or dysphagia. LYMPH: No history of lymphoproliferative disease. CARDIAC: Positive for atrial fibrillation with rapid ventricular response. No current angina. PULMONARY: No history of COPD. No shortness of breath, dyspnea or orthopnea. No cough or hemoptysis. GASTROINTESTINAL: Again, most notably for intractable nausea and vomiting and watery diarrhea. GENITOURINARY: No hematuria, dysuria, urinary incontinence. PSYCHIATRIC: Negative for anxiety, depression or psychosis. ENDOCRINE: Negative for diabetes or thyroid disease. NEUROLOGIC: Negative for seizure, stroke, or migraine headache by history. MUSCULOSKELETAL: Negative for muscle weakness. No arthralgias or myalgias otherwise. HEMATOLOGIC: Positive for treatment-induced anemia. PHYSICAL EXAMINATION: GENERAL: An ill-appearing 77-year-old female patient, lying supine in bed, awake, alert and appropriate, in no acute distress. VITAL SIGNS: Temperature 36.9, pulse 82, respiratory rate 19, blood pressure 113/79. SKIN: Warm, dry, noncyanotic without petechia, rash or ecchymosis. HEENT: Head: Atraumatic, normocephalic. Eyes: PERRLA. EOMI. Sclerae nonicteric. No conjunctival injection. Nares patent without rhinorrhea or discharge. Throat is clear. Tongue is midline. Mucous membranes are moist. NECK: Supple without JVD or thyromegaly. LYMPH: No cervical or supraclavicular palpable nodes. HEART: Actually regular rate and rhythm at present. LUNGS: Clear to auscultation bilaterally. ABDOMEN: Soft, nontender and nondistended. No rigidity or guarding. Bowel sounds are hypoactive. EXTREMITIES: No clubbing, cyanosis or edema. MUSCULOSKELETAL: Strength and pulses are equal in all 4 quadrants. NEUROLOGICALLY: She is awake, alert and oriented x3. LABORATORY DATA: WBC count 3270, hemoglobin 13.4, platelet count 191,000. Sodium 137, potassium 3.3, chloride 103, carbon dioxide 25, creatinine 0.65, BUN 16, magnesium 1.7, albumin 2.5. Microbiology: Stool is negative for Shiga toxin and Clostridium difficile. Urine culture and blood cultures are pending. X-ray of the abdomen shows no acute intraabdominal pathology. IMPRESSION: 1. Intractable nausea and vomiting. 2. Intractable watery diarrhea. 3. Metastatic endometrial carcinoma. 4. Hypomagnesemia. 5. Hypoalbuminemia. 6. Hypokalemia. 7. Atrial fibrillation. PLAN: Colleen was seen and examined at bedside this morning. She was recently diagnosed with metastatic endometrial carcinoma and recommended weekly carboplatin and paclitaxel. She had received two of three scheduled doses with cycle #1. Shortly after dose #2, developed profuse watery diarrhea and nausea and vomiting. Apparently, Colleen was in the ER days prior and adequately fluid resuscitated and sent home. She had planned to come to the office yesterday for further IV hydration, was examined by one of the chemotherapy nurses who recommended visit to the Emergency Room. The patient has been pancultured including stools, which thus far are negative. Somewhat unusual to develop diarrhea with this particular regimen. Obviously, the patient needs to stabilize medically before moving forward, but it is evident she will not tolerate this regimen and alternatives will be sought. Doxil which is a lipid base Adriamycin tends to be profoundly myelosuppressive and may not be a reasonable option. Megace is also somewhat old standard, but still can be quite effective in the short term. Colleen understands her disease is terminal; however, she does not suffer from gross metastatic disease and believe it is very reasonable to consider further therapy once she is well. I agree with current medical management of IV fluids, antiemetics, antidiarrheals and electrolyte replacement. Colleen has a scheduled appointment prior to cycle #2, which I will reserve for her to discuss where we go moving forward therapeutically. Thank you again for assisting me in the care of this very pleasant patient. We will continue to follow her during the hospital stay.
--- NOTE | 2017-11-28 12:38 | ECHOCARDIOGRAM REPORT ---
*NOTICE TO RECEIVING REPUBLICAN AGENCY This information is strictly Confidential and protected under [place] law. [place] law prohibits you from making any further disclosure of this information unless further disclosure is expressly permitted by the written consent of the person to whom it pertains or is authorized by law. A general authorization for the release of medical or other information is not sufficient for this purpose. Hospital accepts no responsibility if the information is made available to any other person, INCLUDING THE PATIENT. Interpretation Summary * Name: ERICA HOYT Study Date: 11/28/2017 07:01 AM BP: 112/75 mmHg * Patient Location: [facility] HR: 88 * : 1940 (M/d/yyyy) Gender: Female Height: 64 in * Age: 77 yrs Ethnicity: [place] Weight: 180 lb * Ordering Physician: Falguni Dyson * Referring Physician: Marlon Araujo D.O. * Performed By: Sunitha Lopez RCS * * Reason For Study: A-FIB * BSA: 1.9 m2 * The study was technically adequate. * Compared to prior study, changes are noted. * -- Conclusions -- * The rhythm is atrial fibrillation. * Ejection Fraction = 60-65%. * The left atrium is severely dilated. * There is mild tricuspid regurgitation. * Aortic valve sclerosis mild, without significant aortic valvular stenosis. * There is mild mitral regurgitation. Procedure Details * A complete two-dimensional transthoracic echocardiogram was performed (2D, M-mode, Doppler and color flow Doppler). Left Ventricle * The left ventricle is normal in size. * The rhythm is atrial fibrillation. * There is no thrombus. * There is borderline concentric left ventricular hypertrophy. * Left ventricular systolic function is normal. * Ejection Fraction = 60-65%. * The left ventricular wall motion is normal. Right Ventricle * The right ventricle is normal size. * The right ventricular systolic function is normal as assessed by tricuspid annular plane systolic excursion (TAPSE) (normal >1.5 cm). Atria * The left atrium is severely dilated. * The right atrium is moderately dilated. * There is no evidence of atrial septal defect, but resolution does not allow assessment for a patent foramen ovale. Mitral Valve * There is moderate mitral annular calcification. * There is no mitral valve stenosis. * There is mild mitral regurgitation. Tricuspid Valve * The tricuspid valve is normal. * There is no tricuspid stenosis. * There is mild tricuspid regurgitation. * The estimated systolic pulmonary arterial pressure is 33 mmHg. Aortic Valve * The aortic valve is trileaflet. * Aortic valve sclerosis mild, without significant aortic valvular stenosis. * Aortic stenosis is absent. * There is no significant aortic regurgitation. Pulmonic Valve * The pulmonary valve is not well seen, but the Doppler examination is normal without significant regurgitation or stenosis. Great Vessels * The aortic root is normal size. Pericardium/Pleural * There is no pericardial effusion. Great Vessels * Normal inferior vena cava diameter and respiratory variation suggests normal central venous pressure. Left Ventricular Diastolic Function * Pulse wave TDI of the anterior and posterior mitral annulas demonstrates abnormal LV relaxation MMode 2D Measurements and Calculations IVSd 1.1 cm IVSs 1.6 cm LVIDd 3.4 cm LVIDs 2.5 cm LVPWd 1.2 cm LVPWs 1.6 cm IVS/LVPW 0.95 FS 26.5 % EDV(Teich) 46.9 ml ESV(Teich) 22.1 ml EF(Teich) 52.9 % EDV(cubed) 38.7 ml ESV(cubed) 15.4 ml EF(cubed) 60.2 % % IVS thick 42.9 % % LVPW thick 31.2 % LV mass(C)d 123.2 grams LV mass(C)dI 65.9 grams/m\S\2 LV mass(C)s 139.5 grams LV mass(C)sI 74.6 grams/m\S\2 SV(Teich) 24.8 ml SI(Teich) 13.3 ml/m\S\2 SV(cubed) 23.3 ml SI(cubed) 12.5 ml/m\S\2 Ao root diam 2.6 cm Ao root area 5.2 cm\S\2 ACS 1.5 cm LA dimension 3.5 cm LA/Ao 1.4 LVOT diam 2.0 cm LVOT area 3.0 cm\S\2 LVAd ap4 18.7 cm\S\2 LVLd ap4 5.4 cm EDV(MOD-sp4) 51.6 ml EDV(sp4-el) 54.4 ml LVAs ap4 14.4 cm\S\2 LVLs ap4 5.5 cm ESV(MOD-sp4) 30.9 ml ESV(sp4-el) 31.7 ml EF(MOD-sp4) 40.0 % EF(sp4-el) 41.7 % LVAd ap2 21.3 cm\S\2 LVLd ap2 6.3 cm EDV(MOD-sp2) 58.5 ml EDV(sp2-el) 61.3 ml LVAs ap2 14.9 cm\S\2 LVLs ap2 5.4 cm ESV(MOD-sp2) 32.7 ml ESV(sp2-el) 34.7 ml EF(MOD-sp2) 44.1 % EF(sp2-el) 43.4 % LVLd %diff 13.6 % EDV(MOD-bp) 59.2 ml LVLs %diff -1.86 % ESV(MOD-bp) 31.7 ml EF(MOD-bp) 46.4 % SV(MOD-sp4) 20.6 ml SI(MOD-sp4) 11.0 ml/m\S\2 SV(MOD-sp2) 25.8 ml SI(MOD-sp2) 13.8 ml/m\S\2 SV(MOD-bp) 27.4 ml SI(MOD-bp) 14.7 ml/m\S\2 SV(sp4-el) 22.7 ml SI(sp4-el) 12.1 ml/m\S\2 SV(sp2-el) 26.6 ml SI(sp2-el) 14.2 ml/m\S\2 Doppler Measurements and Calculations MV E max mt 101.9 cm/sec MV dec time 0.15 sec Ao V2 max 116.5 cm/sec Ao max PG 5.4 mmHg Ao max PG (full) 2.8 mmHg KRISTOPHER(V,A) 2.1 cm\S\2 KRISTOPHER(V,D) 2.1 cm\S\2 LV V1 max PG 2.7 mmHg LV V1 max 81.4 cm/sec TR max mt 276.1 cm/sec
[2017-11-28] MEDS ORDERED: WARFARIN SOD 2 MG TAB PO SCH (16:00)
--- NOTE | 2017-11-28 18:53 | Progress Note ---
Medicine Progress Note Date & Time of Visit: Nov 28, 2017 at 17:47. Subjective Pt was seen and examined Sitting in chair with no distress Pt said that she had 3 episodes of diarrhea last night She said that she has not had any episode today yet She said that she feels much better today Denies any chest pain, palpitation, dizziness and SOB Objective Last 8 Hrs Date Time Temp Pulse Resp B/P (MAP) Pulse Ox O2 Delivery O2 Flow Rate FiO2 11/28/17 16:00 97 Room Air 11/28/17 15:52 36.8 99 16 105/65 (78) 96 Room Air 11/28/17 11:56 37.2 82 18 94/65 (75) 97 Room Air 11/28/17 10:48 64 18 Physical Exam: General- No acute distress Head- atraumatic Eyes- PERRL, EOMI ENT- oropharynx clear Neck- supple, no JVD Lungs- clear to auscultation Heart- regular rhythm; no murmur Abdomen- normal bowel sounds, soft Extremities- no calf tenderness Neuro- alert, oriented x 3; PERRL, EOMI; no facial palsy Skin- warm & dry Laboratory Results: Last 24 Hours Test 11/27/17 20:36 11/27/17 23:50 11/28/17 05:16 Troponin I < 0.015 ng/ml Urine Color YELLOW Urine Appearance CLEAR Urine pH 5.0 Urine Specific [place] 1.016 Urine Protein NEG Urine Glucose (UA) NEG Urine Ketones 1+ Urine Occult Blood 2+ Urine Nitrite NEG Urine Bilirubin NEG Urine Urobilinogen NEG Urine Leukocyte Esterase SMALL Urine WBC (Auto) 10-30 /hpf Urine RBC (Auto) 10-30 /hpf Urine Hyaline Casts (Auto) 1-5 /lpf Urine Epithelial Cells (Auto) 20-30 /lpf Urine Bacteria (Auto) NEG White Blood Count 3.27 K/uL Red Blood Count 4.07 M/uL Hemoglobin 13.4 g/dL Hematocrit 39.2 % Mean Corpuscular Volume 96.3 fL Mean Corpuscular Hemoglobin 32.9 pg Mean Corpuscular Hemoglobin Concent 34.2 g/dl Platelet Count 191 K/uL Mean Platelet Volume 12.0 fL RDW Standard Deviation 45.9 fL RDW Coefficient of Variation 13.2 % Nucleated RBC Absolute Count (auto) 0.43 K/uL Neutrophils % (Manual) 48.7 % Lymphocytes % (Manual) 10.4 % Monocytes % (Manual) 26.1 % Metamyelocytes % 9.6 % Promyelocytes % 5.2 % Nucleated Red Blood Cells % 13.2 % Neutrophils # (Manual) 1.59 K/uL Total Absolute Neutrophils 1.59 K/uL Lymphocytes # (Manual) 0.34 K/uL Total Absolute Lymphocytes 0.34 K/uL Monocytes # (Manual) 0.85 K/uL Metamyelocytes # 0.31 K/uL Promyelocytes # 0.17 K/uL Echinocytes 1+ Prothrombin Time 27.0 SECONDS Prothromb Time International Ratio 2.6 Sodium Level 137 mmol/L Potassium Level 3.3 mmol/L Chloride Level 103 mmol/L Carbon Dioxide Level 25 mmol/L Anion Gap 9.0 mmol/L Blood Urea Nitrogen 16 mg/dl Creatinine 0.65 mg/dl Est Creatinine Clear Calc Drug Dose 75.1 ml/min Estimated GFR () 99.3 Estimated GFR (Non- 85.6 BUN/Creatinine Ratio 23.9 Random Glucose 118 mg/dl Calcium Level 7.8 mg/dl Magnesium Level 1.7 mg/dl Date/Time Source Procedure Growth Status 11/27/17 18:35 Blood Blood Culture Pending Received 11/27/17 18:28 Blood Blood Culture Pending Received 11/27/17 23:50 Stool C.difficile Toxin B Gene (PCR) - Final No C. difficile toxin B gene detected Complete 11/27/17 23:50 Stool Shiga Toxin Test Pending Received 11/27/17 23:50 Stool Stool Culture Pending Received 11/27/17 23:50 Urine , Clean Catch Urine Culture Pending Received Assessment & Plan Nausea Associated with Diarrhea and Chills Mostly related to Chemo Last Chemo was last Monday Abd Xray showed minimal atelectasis or scarring in the left midlung. No convincing evidence of acute cardiopulmonary disease. Continue IVF Continue Zosyn for now Stools for Cdiff negative Blood cx pending Diarrhea improves Advanced diet as tolerated Chronic Afib with RVR HR on admission was in the 130's has not been taking her metoprolol due to nausea/fatigue rate control on NSR Cardizem drip d/c INR therapeutic cardiology on board recommended current management with metoprolol ECHO * The rhythm is atrial fibrillation. * Ejection Fraction = 60-65%. * The left atrium is severely dilated. * There is mild tricuspid regurgitation. * Aortic valve sclerosis mild, without significant aortic valvular stenosis. * There is mild mitral regurgitation. Endometrial Carcinoma Last chemo was last Monday Follow with Dr. Araujo Chemo will resume once pt stable Neutropenia WBC on admission 1.8 with absolute neutrophil 0.55 WBC improved to 3.2 Continue monitor CBC Electrolytes Imbalance Mg and K replaced Monitor electrolytes Weakness Due to Acute illness Fall precaution PT/OT Improved DVT px On Coumadin INR therapeutic CODE STATUS FULL CODE Current Inpatient Medications: Current Inpatient Medications Medications (Trade) Dose Ordered Sig/Glenda Route Start Time Stop Time Status Last Admin Dose Admin Diltiazem HCl 125 mg/Dextrose 125 ml @ 0 mls/hr Q0M PRN IV 11/27/17 14:45 12/27/17 14:44 11/27/17 23:30 10 MLS/HR Ondansetron HCl (Zofran Inj) 4 mg Q6H PRN IV 11/27/17 19:15 12/27/17 19:14 11/28/17 16:49 4 MG Piperacillin Sod/ Tazobactam Sod 3.375 gm/Dextrose 115 ml @ 28.75 mls/ hr Q8H IV 11/28/17 02:00 11/30/17 01:59 11/28/17 11:09 28.75 MLS/HR Miscellaneous Information (Consult) 1 ea UD PRN N/A 11/27/17 19:30 12/27/17 19:29 Sodium Chloride 1,000 ml @ 100 mls/hr Q10H IV 11/27/17 20:30 12/27/17 20:29 11/28/17 15:44 100 MLS/HR Aspirin (Ecotrin Tab) 81 mg DAILY PO 11/28/17 09:00 12/28/17 08:59 11/28/17 07:37 81 MG Metoprolol Tartrate (Lopressor Tab) 50 mg BID PO 11/27/17 21:00 12/27/17 20:59 11/28/17 07:37 50 MG Warfarin Sodium (Coumadin Tab) 2 mg DAILY@16 PO 11/28/17 16:00 12/28/17 15:59 11/28/17 15:41 2 MG Loperamide HCl (Imodium A-D Liquid) 2 mg UD PRN PO 11/28/17 06:45 12/28/17 06:44 11/28/17 07:38 2 MG
[2017-11-28] MEDS ORDERED: NURSING VERBAL MED ORDER ONE (20:00)
[2017-11-28] MEDS: LIDOCAINE HCL 2% VISCOUS SOLN 60 ML, DiphenhydrAMINE HCL SYRUP 150 MG, ALUMINUM/MAGNESI... MT SCH ×4 (20:42)
[2017-11-29] VITALS (8 sets, daily range): BP systolic 91–129; BP diastolic 61–80; PULSE 59–100; TEMP 36.4–37; O2SAT 92–99
[2017-11-29] MEDS: SODIUM CHLORIDE 0.9% 1000ML 1,000 ML IV SCH (02:10)
[2017-11-29] MEDS: PIPERACILL/TAZOBAC IV 3.375 GM in DEXTROSE 5% 100ML 100 ML IV SCH ×2 (02:10→09:57)
[2017-11-29 06:36] LABS: HEMATOCRIT 37.5 % (37-47); HEMOGLOBIN 12.7 g/dL (12.0-16.0); MEAN CELL VOLUME 97.7 fL (80-100); MEAN CORPUSCULAR HEMOGLOBIN 33.1 pg (25-34); MEAN CORPUSCULAR HGB CONC 33.9 g/dl (32-36); MEAN PLATELET VOLUME 11.4 fL (7.4-10.4); PLATELET COUNT 198 K/uL (130-400); RED CELL DISTRIBUTION WIDTH CV 13.4 % (11.5-14.5); RED CELL DISTRIBUTION WIDTH SD 47.5 fL (36.4-46.3); WHITE BLOOD COUNT 5.04 K/uL (4.8-10.8)
[2017-11-29 07:11] LABS: CALCIUM 7.3 mg/dl (8.5-10.1); CREATININE 0.68 mg/dl (0.60-1.20)
[2017-11-29] MEDS: ASPIRIN 81 MG ECTAB PO SCH (07:30)
[2017-11-29] MEDS: METOPROLOL TARTRATE 50 MG TAB PO SCH ×2 (07:30→21:06)
[2017-11-29] MEDS: LIDOCAINE HCL 2% VISCOUS SOLN 60 ML, DiphenhydrAMINE HCL SYRUP 150 MG, ALUMINUM/MAGNESI... MT SCH ×16 (07:36→21:07)
--- NOTE | 2017-11-29 08:49 | HEME/ONC PROGRESS NOTE ---
DATE: 11/29/2017 DIAGNOSES: 1. Intractable nausea and vomiting. 2. Intractable diarrhea. 3. Metastatic endometrial carcinoma. 4. Electrolyte dysfunction. 5. Atrial fibrillation. SUBJECTIVE: Colleen was seen and examined at bedside. Seems to be feeling a little bit better; however, still reports frequent diarrheal stools. Stool cultures have been negative. The patient reports no overnight fever. She is tolerating diet. Primary service is still working on a ventricular rate attributable to atrial fibrillation. Nursing reports no overnight difficulties otherwise. PHYSICAL EXAMINATION: GENERAL: She is in no acute distress. VITAL SIGNS: Temperature 36.7, pulse 91, respiratory rate 18, blood pressure 103/67. SKIN: Without rash or lesion. HEENT: Oral mucosa without erythema or ulceration. NECK: Supple. HEART: Regular rate and rhythm. LUNGS: Clear to auscultation bilaterally. ABDOMEN: Soft, nontender, nondistended. EXTREMITIES: No clubbing, cyanosis, or edema. NEUROLOGIC: Grossly intact. LABORATORY DATA: WBC count 5040, hemoglobin 12.7, platelet count 198,000. Sodium 138, potassium 3.0, chloride 107, carbon dioxide 24, creatinine 0.68, BUN 12. IMPRESSION: 1. Intractable nausea and vomiting. 2. Intractable diarrhea. 3. Metastatic endometrial carcinoma. 4. Electrolyte dysfunction. 5. Atrial fibrillation. PLAN: Colleen seems to be a little bit better this morning. Agree with current medical management and really have nothing further to add at this point. Her peripheral blood counts are satisfactory. However, potassium remains low and would consider checking magnesium as well. Again, diarrheal onset is somewhat of a mystery as this regimen does not typically cause such severe GI symptoms considering lower weekly dose. Nonetheless, we will plan to reconvene with Colleen upon discharge and may need to consider either discontinuing chemo altogether and most certainly an alternate regimen. Thank you for allowing me to participate in her care.
[2017-11-29] MEDS: POTASSIUM CHLR 10 MEQ / WTR 100 ML IV SCH ×3 (09:00→09:59)
[2017-11-29] MEDS ORDERED: MAGNESIUM SULFATE 1GM / D5W 100 ML IV ONE (09:00)
[2017-11-29] MEDS ORDERED: ONDANSETRON INJ 2 MG/ML 2 ML VIAL IV PRN (09:00)
[2017-11-29] MEDS ORDERED: POTASSIUM CHLORIDE 20 MEQ TABCR PO ONE (10:00)
--- NOTE | 2017-11-29 10:13 | Cardiology Follow-Up ---
Subjective General Date of Service: Nov 29, 2017. Chief Complaint: Atrial fibrillation Pt evaluation today including: conversation w/ patient, physical exam, chart review, lab review, review of studies, review of inpatient medication list History of Present Illness Patient seen and examined. Chart and medications reviewed. Nausea and diarrhea have improved but not resolved. She is unable to tolerate IV potassium infusion and requests oral supplementation. Review of her continuous telemetry monitoring reveals the chronic atrial fibrillation with a mildly elevated ventricular response. Her current heart rate is in the 100 bpm range with rates 90-160 bpm this morning. No chest pain, dyspnea, or overt palpitations. November 28, 2017 TTE Interpretation Summary ([facility], Dr. Mosley): The study was technically adequate. Compared to prior study, changes are noted. The rhythm is atrial fibrillation. Ejection Fraction = 60-65%. The left atrium is severely dilated. There is mild tricuspid regurgitation. Aortic valve sclerosis mild, without significant aortic valvular stenosis. There is mild mitral regurgitation. Allergies Coded Allergies: No Known Allergies (Unverified , 10/19/16) Social History Smoking Status: Unknown if Ever Smoked Hx Tobacco Use In Past Year?: No Hx Alcohol Use - Type And Amou: Yes (socially, ) Hx Substance Use - Type And Am: No Problem List Medical Problems: (1) Atrial fibrillation with rapid ventricular response Status: Acute (2) Dehydration Status: Acute (3) Leukopenia Status: Acute Review of Systems Respiratory: No cough, No sputum, No wheezing, No shortness of breath, No dyspnea on exertion, No dyspnea at rest, No hemoptysis Cardiac: No chest pain, No orthopnea, No PND, No edema, No claudication, No palpitations Physical Exam Vital Signs Last Vital Signs Documentation Date Time Temp Pulse Resp B/P (MAP) Pulse Ox O2 Delivery O2 Flow Rate FiO2 11/29/17 08:00 Room Air 11/29/17 07:05 36.7 91 18 103/67 (35) 96 Physical Exam Constitutional: Level of Distress: NAD, chronically ill Psychiatric: Mental Status: active & alert Neck: pertinent finding (Normal JVP) Lungs: Respiratory effort: no dyspnea Auscultation: breath sounds normal Cardiovascular: Heart Auscultation: no murmurs, no rubs, tachycardia, irregular rate rhythm Abdomen: Bowel Sounds: normal Extremities: no edema, pertinent finding (Lymphedematous type changes) Neurologic: Cranial Nerves: grossly intact Assessment and Plan Assessment and Plan Elevated/rapid ventricular response to chronic atrial fibrillation secondary to intravascular volume depletion from GI losses as well as transient withdrawal of beta-simon therapy. Hypokalemia RECOMMENDATIONS/PLAN: Rate control and chronic Coumadin anticoagulation. Increase oral metoprolol dosing adding an additional 25 mg today then utilizing 75 mg in the AM and 50 mg in the PM as long as blood pressure permits. Discontinue IV potassium (unable to tolerate) Oral potassium chloride, 40 mEq this morning. Repeat potassium level this afternoon. Hold anticoagulation secondary to the supratherapeutic INR. Cardiology Attending Physician: Patient seen and examined at the bedside. Reports feeling fatigued and washed out. Diarrhea improved today. Heart rate improved significantly with resumption of oral beta-simon and intravenous Cardizem. Cardizem infusion discontinued earlier today due to bradycardia. No significant pauses or symptomatic bradycardia reported. Hemodynamically stable. Denies chest pain or shortness of breath. INR is therapeutic. PE: General: No acute distress, chronically ill, pale. Heart: Irregular, normal S1, normal S2. No murmur appreciated. Lungs: Clear bilateral, no rales , rhonchi, wheeze. Extremities: No edema. A/P: Agree with above PA-C history, physical exam, assessment and plan. Metoprolol increased as noted above. Follow telemetry. Hold Coumadin today. Repeat INR in a.m. Neel Mosley DO [facility] Laboratory Results Last 24 Hours Test 11/29/17 06:20 White Blood Count 5.04 K/uL Red Blood Count 3.84 M/uL Hemoglobin 12.7 g/dL Hematocrit 37.5 % Mean Corpuscular Volume 97.7 fL Mean Corpuscular Hemoglobin 33.1 pg Mean Corpuscular Hemoglobin Concent 33.9 g/dl RDW Standard Deviation 47.5 fL RDW Coefficient of Variation 13.4 % Platelet Count 198 K/uL Mean Platelet Volume 11.4 fL Prothrombin Time 50.4 SECONDS Prothromb Time International Ratio 5.0 Sodium Level 138 mmol/L Potassium Level 3.0 mmol/L Chloride Level 107 mmol/L Carbon Dioxide Level 24 mmol/L Anion Gap 7.0 mmol/L Blood Urea Nitrogen 12 mg/dl Creatinine 0.68 mg/dl Est Creatinine Clear Calc Drug Dose 72.7 ml/min Estimated GFR () 97.8 Estimated GFR (Non- 84.4 BUN/Creatinine Ratio 17.7 Random Glucose 85 mg/dl Calcium Level 7.3 mg/dl Magnesium Level 1.9 mg/dl
[2017-11-29] MEDS ORDERED: METOPROLOL TARTRATE 25 MG TAB PO ONE (12:00)
[2017-11-29 15:26] LABS: POTASSIUM 3.1 mmol/L (3.5-5.1)
--- NOTE | 2017-11-29 16:30 | Progress Note ---
Progress Note Date of Service Nov 29, 2017. Progress Note Subjective: Patient continues to report of runny stool but reports improvement with diarrhea. She is able to tolerate solid food. Denies vomiting. She has trouble with electrolyte repletions with IV potassium supplements because of pain when IV potassium running. Denies fever or chest pain or shortness of breath Physical exam General- No acute distress Head- atraumatic Eyes- EOMI ENT- oropharynx clear Neck- supple, no JVD Lungs- clear to auscultation Heart- irregular rhythm; rate controlled Abdomen- normal bowel sounds, soft Extremities- no calf tenderness Neuro- alert, oriented x 3; EOMI; no facial palsy Skin- warm & dry Assessment and Plan Nausea Associated with Diarrhea and Chills likely secondary to recent chemotherapy at this time, no infectious sources identified Zosyn discontinued Diet advanced Continues to have some diarrhea and electrolyte abnormalities likely from GI losses Will continue to supplement potassium and magnesium IV and oral for hypokalemia and hypomagnesemia Neutropenia resolving initial neutropenia likely from chemotherapy Endometrial Carcinoma patient was evaluated by hematology/oncology as inpatient consultation and will need to follow up as outpatient and re-evaluate future chemotherapy plans while minimizing side effects Chronic Afib with RVR HR on admission was in the 130's had not been taking her metoprolol due to nausea/fatigue ECHO * The rhythm is atrial fibrillation. * Ejection Fraction = 60-65%. * The left atrium is severely dilated. * There is mild tricuspid regurgitation. * Aortic valve sclerosis mild, without significant aortic valvular stenosis. * There is mild mitral regurgitation. Rate controlled after being off Cardiazem drip and currently on metoprolol; ( cardiology recommended higher doses of scheduled metoprolol) Hold coumadin as INR is supratherapeutic - will not give any vitamin K reversal as no evidence for bleeding PT/OT evaluation requested DVT px : INR supratherapeutic from coumadin CODE STATUS FULL CODE
[2017-11-29] MEDS: NSS + 20MEQ KCL 1000ML 1,000 ML IV SCH (18:23)
[2017-11-29] MEDS: POTASSIUM CHLORIDE 20 MEQ TABCR PO STA ×2 (18:24→19:06)
[2017-11-29] MEDS ORDERED: POTASSIUM CHLORIDE 20 MEQ/15 ML UDC PO ONE (18:45)
[2017-11-29] MEDS ORDERED: POTASSIUM CHLORIDE 20 MEQ/15 ML UDC PO SCH (21:00)
[2017-11-29] MEDS ORDERED: POTASSIUM CHLORIDE 20 MEQ TABCR PO SCH (21:00)
[2017-11-29] MEDS: MAGNESIUM OXIDE 400 MG TAB PO SCH (21:06)
[2017-11-30] VITALS (16 sets, daily range): BP systolic 74–106; BP diastolic 39–70; PULSE 87–137; TEMP 36.3–37; O2SAT 86–100
[2017-11-30] MEDS ORDERED: NURSING VERBAL MED ORDER ONE (06:30)
[2017-11-30] MEDS ORDERED: PHYTONADIONE 5 MG TAB PO STA (06:31)
[2017-11-30] MEDS: NSS + 20MEQ KCL 1000ML 1,000 ML IV SCH (06:38)
[2017-11-30 06:54] LABS: HEMATOCRIT 27.9 % (37-47); HEMOGLOBIN 9.3 g/dL (12.0-16.0); MEAN CELL VOLUME 98.6 fL (80-100); MEAN CORPUSCULAR HEMOGLOBIN 32.9 pg (25-34); MEAN CORPUSCULAR HGB CONC 33.3 g/dl (32-36); MEAN PLATELET VOLUME 10.9 fL (7.4-10.4); PLATELET COUNT 212 K/uL (130-400); RED CELL DISTRIBUTION WIDTH CV 13.3 % (11.5-14.5); RED CELL DISTRIBUTION WIDTH SD 48.3 fL (36.4-46.3)
[2017-11-30 06:56] LABS: INR 5.6 (0.9-1.1)
[2017-11-30 07:03] LABS: ALBUMIN 1.5 gm/dl (3.4-5.0); CALCIUM 7.2 mg/dl (8.5-10.1); CREATININE 0.64 mg/dl (0.60-1.20)
[2017-11-30 07:06] LABS: TOTAL PROTEIN 3.9 gm/dl (6.4-8.2)
[2017-11-30] MEDS: LIDOCAINE HCL 2% VISCOUS SOLN 60 ML, DiphenhydrAMINE HCL SYRUP 150 MG, ALUMINUM/MAGNESI... MT SCH ×16 (07:52→22:13)
[2017-11-30] MEDS ORDERED: SODIUM CHLORIDE 0.9% 1000ML 1,000 ML IV STA (07:52)
[2017-11-30] MEDS: MAGNESIUM OXIDE 400 MG TAB PO SCH ×2 (07:57→22:06)
[2017-11-30 08:28] LABS: RETIC COUNT % 1.2 % (0.5-2.0)
[2017-11-30] MEDS ORDERED: METOPROLOL TARTRATE 25 MG TAB PO SCH (09:00)
[2017-11-30] MEDS: MAGNESIUM SULFATE 1GM / D5W 100 ML IV SCH ×2 (09:11→10:20)
[2017-11-30] MEDS ORDERED: OPTIRAY 320 IV PRN (10:15)
--- NOTE | 2017-11-30 10:24 | Cardiology Follow-Up ---
Subjective General Date of Service: Nov 30, 2017. Chief Complaint: Atrial fibrillation Pt evaluation today including: conversation w/ patient, physical exam, chart review, lab review, review of studies, review of inpatient medication list History of Present Illness Patient seen and examined. + Hematochezia. INR 5.6. Given 2.5 mg of Vitamin K. She did not receive metoprolol this morning secondary to hypotension. Telemetry reveals a rapid ventricular response to her chronic atrial fibrillation. No chest pain, dyspnea, or palpitations. November 28, 2017 TTE Interpretation Summary ([facility], Dr. Mosley): The study was technically adequate. Compared to prior study, changes are noted. The rhythm is atrial fibrillation. Ejection Fraction = 60-65%. The left atrium is severely dilated. There is mild tricuspid regurgitation. Aortic valve sclerosis mild, without significant aortic valvular stenosis. There is mild mitral regurgitation. Allergies Coded Allergies: No Known Allergies (Unverified , 10/19/16) Social History Smoking Status: Unknown if Ever Smoked Hx Tobacco Use In Past Year?: No Hx Alcohol Use - Type And Amou: Yes (socially, ) Hx Substance Use - Type And Am: No Problem List Medical Problems: (1) Atrial fibrillation with rapid ventricular response Status: Acute (2) Dehydration Status: Acute (3) Leukopenia Status: Acute Review of Systems Respiratory: + dyspnea on exertion, No cough, No sputum, No shortness of breath , No dyspnea at rest Cardiac: No chest pain, No orthopnea, No PND, No edema, No claudication, No palpitations Physical Exam Vital Signs Last Vital Signs Documentation Date Time Temp Pulse Resp B/P (MAP) Pulse Ox O2 Delivery O2 Flow Rate FiO2 11/30/17 07:02 37.0 97 18 97/67 (77) 97 Room Air 67.0 Physical Exam Constitutional: Level of Distress: acutely ill, chronically ill Psychiatric: Mental Status: lethargic Neck: pertinent finding (Normal JVP) Lungs: Respiratory effort: no dyspnea Auscultation: breath sounds normal Cardiovascular: Heart Auscultation: no murmurs, no rubs, tachycardia, irregular rate rhythm Abdomen: Bowel Sounds: normal Extremities: no edema, pertinent finding (Lymphedematous type changes) Neurologic: Cranial Nerves: grossly intact Assessment and Plan Assessment and Plan Chronic atrial fibrillation, currently with a rapid ventricular response ( asymptomatic) secondary to active GI bleeding and the inability to receive metoprolol secondary to hypotension. RECOMMENDATIONS/PLAN: Continue metoprolol as blood pressure permits. Utilize digoxin if unable to receive metoprolol. Hold anticoagulation. Note: She received 2.5 mg of Vitamin K early today. GI evaluation. Probable need for transfusion or PRBC's discussed. Cardiology Attending Physician: Patient seen and examined at the bedside. Patient is pale and extremely fatigued this morning. Hemoglobin has dropped 3 g overnight. Signs of upper GI bleeding. She was given 2.5 mg of vitamin K due to supratherapeutic INR. Denies chest pain or palpitations. Atrial fibrillation with rapid ventricular response noted on telemetry. She did not receive her a.m. dose of metoprolol due to hypotension. PE: General: No acute distress, chronically ill, pale. Heart: Irregular, tachycardic. Normal S1, normal S2. No murmur appreciated. Lungs: Clear bilateral, no rales, rhonchi, wheeze. Extremities: No edema. A/P: Agree with above PA-C history, physical exam, assessment and plan with the following additions. Give 50 mg metoprolol tartrate 1 now. We will utilize intravenous digoxin if necessary. Give additional 2.5 mg vitamin K. Type and cross sent with repeat hemoglobin pending. Agree with intravenous hydration with normal saline. Follow telemetry. Hold Coumadin. Repeat INR this afternoon. Gastroenterology consultation. Neel Mosley DO, [facility] Laboratory Results Last 24 Hours Test 11/29/17 14:40 11/30/17 06:25 11/30/17 07:05 11/30/17 09:00 Potassium Level 3.1 mmol/L 4.0 mmol/L Magnesium Level 1.9 mg/dl 1.6 mg/dl White Blood Count 6.80 K/uL Red Blood Count 2.83 M/uL Hemoglobin 9.3 g/dL Hematocrit 27.9 % Mean Corpuscular Volume 98.6 fL Mean Corpuscular Hemoglobin 32.9 pg Mean Corpuscular Hemoglobin Concent 33.3 g/dl Platelet Count 212 K/uL Mean Platelet Volume 10.9 fL RDW Standard Deviation 48.3 fL RDW Coefficient of Variation 13.3 % Neutrophils % (Manual) 68.1 % Lymphocytes % (Manual) 8.6 % Monocytes % (Manual) 8.6 % Metamyelocytes % 4.3 % Myelocytes % 9.5 % Blast Cells % 0.9 % Neutrophils # (Manual) 4.63 K/uL Total Absolute Neutrophils 4.63 K/uL Lymphocytes # (Manual) 0.58 K/uL Total Absolute Lymphocytes 0.58 K/uL Monocytes # (Manual) 0.58 K/uL Metamyelocytes # 0.29 K/uL Myelocytes # 0.65 K/uL Blast Cells # 0.06 K/uL Toxic Granulation 2+ Absolute Reticulocyte Count 0.03 10^6/uL Percent Reticulocyte Count 1.2 % Prothrombin Time 56.5 SECONDS Prothromb Time International Ratio 5.6 Sodium Level 142 mmol/L Chloride Level 113 mmol/L Carbon Dioxide Level 25 mmol/L Anion Gap 5.0 mmol/L Blood Urea Nitrogen 23 mg/dl Creatinine 0.64 mg/dl Est Creatinine Clear Calc Drug Dose 77.1 ml/min Estimated GFR () 99.8 Estimated GFR (Non- 86.1 BUN/Creatinine Ratio 35.3 Random Glucose 105 mg/dl Calcium Level 7.2 mg/dl Iron Level 86 mcg/dl Total Iron Binding Capacity 140 mcg/dl Total Bilirubin 0.1 mg/dl Aspartate Amino Transf (AST/SGOT) 17 U/L Alanine Aminotransferase (ALT/SGPT) 20 U/L Alkaline Phosphatase 70 U/L Total Protein 3.9 gm/dl Albumin 1.5 gm/dl Globulin 2.4 gm/dl Albumin/Globulin Ratio 0.6 Bedside Glucose 108 mg/dl Stool Occult Blood POSITIVE
[2017-11-30] MEDS ORDERED: PANTOprazole INJ 80 MG in DEXTROSE 5% 100ML IV SCH (10:30)
[2017-11-30] MEDS: PANTOprazole INJ 40 MG in DEXTROSE 5% 100ML IV SCH ×3 (10:44→22:12)
[2017-11-30] MEDS ORDERED: METOPROLOL TARTRATE 50 MG TAB PO ONE (10:45)
[2017-11-30] MEDS ORDERED: PHYTONADIONE 5 MG TAB PO ONE (11:45)
--- NOTE | 2017-11-30 12:20 | Gastrointestinal Consultation ---
Gastrointestinal Consultation Date of Consultation: Nov 30, 2017 Attending Physician: Ron Cavanaugh Consulting Physician: Suraj Harvey Reason for Consultation: Diarrhea, GI bleed History of Present Illness Patient is a 77 year old female w PMHx of Afib on Coumadin, dyslipidemia, endometrial ca s/p ex lap, JOSETTE/BSO, omentum resection 05/2014; Postoperatively she received 6 cycles of Carbo/Taxol with the [facility] (completed 11/2014), followed by XRT (completed 02/2015). She recently started back on chemo, last dose Monday a week ago. She said since chemo she started to notice n/v, watery diarrhea up to 20 episodes a day w stool incontinence at times. She denies any hematemesis, or coffee ground emesis. Denies any NSAIDs. She denies any abd pain. No fever, chills, CP, SOB. Feels weak. She was in Afib w HR of 130s on presentation, started on Cardizem gtt, now on Metoprolol 50mg BID. HR in 90s, RVR. Labs on admission showed INR of 2.5, now 5.6. she received Vit K 2.5mg PO, another dose ordered. She was neutropenic on presentation. H/H 16/45. Overnight she had tarry appearing stools and her H/H dropped to 9/27. Chest and abd xray showed no acute changes or processes. Cdiff, stool cx negative. Blood cx negative, urine cx growing gram negative bacilli. Past Medical/Surgical History Medical Problems: (1) Atrial fibrillation with rapid ventricular response Status: Acute (2) Dehydration Status: Acute (3) Leukopenia Status: Acute Past Medical History: See above Past Surgical History: As above, cataract surgery, tonsillectomy Family History FH: colon cancer SISTER Thyroid disorder SISTER MOTHER Social History Smoking Status: Unknown if Ever Smoked Drug Use: none Marital Status: Housing Status: lives with family Occupation Status: retired Allergies Coded Allergies: No Known Allergies (Unverified , 10/19/16) Current Medications Home Meds and Scripts Medications Dose Route/Sig Max Daily Dose Days Date Category Dose Instructions Potassium Chloride Cr (Potassium Chloride) 10 Meq Tab 10 Meq PO DAILY PRN 11/27/17 Reported Lasix (Furosemide) 20 Mg Tab 20 Mg PO DAILY PRN 11/27/17 Reported Vitamin D3 (Cholecalciferol) 1,000 Inter.unit Tab 1 Tab PO DAILY 11/27/17 Reported Aspirin Ec (Aspirin) 81 Mg Tab 81 Mg PO DAILY 11/27/17 Reported Coumadin (Warfarin Sod) 2.5 Mg Tab 2.5 Mg PO UD 11/27/17 Reported Lopressor (Metoprolol Tartrate) 50 Mg Tab 50 Mg PO BID 11/27/17 Reported Compazine (Prochlorperazine Maleate) 10 Mg Tab 10 Mg PO Q6H PRN 11/27/17 Reported Dexamethasone 4 Mg Tab 8 Mg PO UD 11/27/17 Reported TWO 4 MG TABLETS ON DAY BEFORE, OF AND AFTER THERAPY. Review of Systems Constitutional: + weakness, No fever, No chills Respiratory: No cough, No shortness of breath Cardiac: No chest pain, No edema Abdomen: + see HPI, + nausea, + vomiting, + diarrhea, No pain Endo: + fatigue Skin: No rash, No itch, No jaundice Physical Exam Date Time Temp Pulse Resp B/P (MAP) Pulse Ox O2 Delivery O2 Flow Rate FiO2 11/30/17 11:05 36.5 104 19 106/69 (81) 98 Room Air 11/30/17 08:30 Room Air 11/30/17 07:02 37.0 97 18 97/67 (77) 97 Room Air 67.0 11/30/17 07:00 36.9 98 18 89/56 (67) 98 Room Air 11/30/17 06:19 36.5 99 20 101/70 (80) 99 Room Air 11/30/17 03:24 36.6 97 18 99/65 (76) 96 Room Air 11/30/17 00:35 95/62 (73) 11/30/17 00:00 Room Air 11/29/17 23:31 36.4 96 18 91/66 (74) 96 Room Air 11/29/17 20:00 Room Air 11/29/17 19:43 36.8 100 18 97/67 (77) 98 Room Air 11/29/17 15:40 Room Air 11/29/17 15:05 36.6 85 16 112/76 (88) 97 Room Air 11/29/17 14:00 37.0 59 18 122/63 (82) 92 Nasal Cannula 3.0 General Appearance: WD/WN, + mild distress (appears fatigued) Eyes: normal inspection, PERRL, EOMI Neck: supple, no JVD, trachea midline Respiratory/Chest: normal breath sounds, no respiratory distress, no accessory muscle use Cardiovascular: regular rate, rhythm, no gallop, no murmur Abdomen: normal bowel sounds, non tender, soft Extremities: normal inspection, no pedal edema, no calf tenderness Neurologic/Psych: alert, normal mood/affect, oriented x 3 Skin: no rash, + pallor Laboratory Results Last 24 Hours Test 11/29/17 14:40 11/30/17 06:25 11/30/17 07:05 11/30/17 09:00 Potassium Level 3.1 mmol/L 4.0 mmol/L Magnesium Level 1.9 mg/dl 1.6 mg/dl White Blood Count 6.80 K/uL Red Blood Count 2.83 M/uL Hemoglobin 9.3 g/dL Hematocrit 27.9 % Mean Corpuscular Volume 98.6 fL Mean Corpuscular Hemoglobin 32.9 pg Mean Corpuscular Hemoglobin Concent 33.3 g/dl Platelet Count 212 K/uL Mean Platelet Volume 10.9 fL RDW Standard Deviation 48.3 fL RDW Coefficient of Variation 13.3 % Neutrophils % (Manual) 68.1 % Lymphocytes % (Manual) 8.6 % Monocytes % (Manual) 8.6 % Metamyelocytes % 4.3 % Myelocytes % 9.5 % Blast Cells % 0.9 % Neutrophils # (Manual) 4.63 K/uL Total Absolute Neutrophils 4.63 K/uL Lymphocytes # (Manual) 0.58 K/uL Total Absolute Lymphocytes 0.58 K/uL Monocytes # (Manual) 0.58 K/uL Metamyelocytes # 0.29 K/uL Myelocytes # 0.65 K/uL Blast Cells # 0.06 K/uL Blood Smear Review Toxic Granulation 2+ Absolute Reticulocyte Count 0.03 10^6/uL Percent Reticulocyte Count 1.2 % Prothrombin Time 56.5 SECONDS Prothromb Time International Ratio 5.6 Sodium Level 142 mmol/L Chloride Level 113 mmol/L Carbon Dioxide Level 25 mmol/L Anion Gap 5.0 mmol/L Blood Urea Nitrogen 23 mg/dl Creatinine 0.64 mg/dl Est Creatinine Clear Calc Drug Dose 77.1 ml/min Estimated GFR () 99.8 Estimated GFR (Non- 86.1 BUN/Creatinine Ratio 35.3 Random Glucose 105 mg/dl Calcium Level 7.2 mg/dl Iron Level 86 mcg/dl Total Iron Binding Capacity 140 mcg/dl Total Bilirubin 0.1 mg/dl Aspartate Amino Transf (AST/SGOT) 17 U/L Alanine Aminotransferase (ALT/SGPT) 20 U/L Alkaline Phosphatase 70 U/L Total Protein 3.9 gm/dl Albumin 1.5 gm/dl Globulin 2.4 gm/dl Albumin/Globulin Ratio 0.6 Bedside Glucose 108 mg/dl Stool Occult Blood POSITIVE Impression Patient is a 77 year old female hx of endometrial ca s/p surgery & XRT, chemo in 2014, recently started back on chemo last Monday. Since last chemo she started having n/v, diarrhea. Last night had tarry appearance of stool. Hgb dropped from 16 to 9 since 3 days ago. She was on Coumadin, INR around 2 on admission now 5.6. Infectious workup: Cdiff, stool cx, blood cx negative. 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 Plan - Start PPI bolus and gtt. - Monitor H/H - Reverse INR w Vit K; repeat INR check this evening and if still >1.5 would need another dose of Vit K 2.5mg IV. - Obtain CT abd/pelvis w contrast Addendum: CT abd/pelvis w contrast showed diffuse colitis mostly on L side w somewhat sparing of transverse colon. Suspect changes related to intramural bleeding of colon. ? ischemic colitis. There are some pneumatosis, no free air. Images reviewed by Dr. Harvey and Radiologist (Drs. Pabon, Carroll). - We will continue PPI gtt, and start pt on Octreotide bolus & gtt. Though less likely has UGI bleed. EGD will be cancelled. No plan for colonoscopy either. - Keep NPO - Surgery consulted given pneumatosis - Vit K 10mg IV x 1 dose; Kcentra 3000 Unit x 1 dose. Recheck INR this evening. - Transfuse 2U PRBC. Monitor H/H. Attending attestation I have seen, examined this patient, and agree with the findings and above by our mid-level provider Jt Gutierrez.-We were consulted on this patient who has a history of newly diagnosed recurrent and metastatic endometrial carcinoma. She was initiated on chemotherapy 10 days ago, she began to have watery diarrhea up to 10-20 times daily after that. She was admitted from the clinic for weakness as well as persistent diarrhea. She was doing well until early this morning when she began to have rectal bleeding. This is painless in nature witnessed by me on multiple occasions and appears to be maroon in color to reddish. No melena. She has no complaint of abdominal pain nausea has not had any hematemesis. Her INR has risen up to 5.6 this morning, she was given a small dose of oral vitamin K this morning, but has had persistent small-volume clots come out of her rectum. Initially when I saw her I queried the possibility that this could be an upper GI bleed, however I carefully reviewed her CT scan with radiology, it shows an unusual appearance on the left side of her colon with what appears to be at the minimal ischemic colitis with likely pneumatosis, but possible intramural hemorrhage. We discussed the case with , general surgery Dr. Rock, as well as the ICU attending. This appears to be ischemic colitis. Decisions been made to monitor in the ICU, if patient becomes hemodynamically unstable or worsens, then surgery will make a decision on ultimate care here or transfer to a tertiary center. At least reasonable in the short-term interval to continue the PPI infusion support her hemodynamics transfuse blood, reverse her INR and continue to monitor. Please call with any questions
[2017-11-30 12:36] LABS: HEMATOCRIT 24.8 % (37-47); HEMOGLOBIN 8.3 g/dL (12.0-16.0); MEAN CELL VOLUME 98.8 fL (80-100); MEAN CORPUSCULAR HEMOGLOBIN 33.1 pg (25-34); MEAN CORPUSCULAR HGB CONC 33.5 g/dl (32-36); MEAN PLATELET VOLUME 10.8 fL (7.4-10.4); PLATELET COUNT 207 K/uL (130-400); RED CELL DISTRIBUTION WIDTH CV 13.3 % (11.5-14.5); RED CELL DISTRIBUTION WIDTH SD 47.9 fL (36.4-46.3); WHITE BLOOD COUNT 6.94 K/uL (4.8-10.8)
--- NOTE | 2017-11-30 13:37 | DIAGNOSTIC IMAGING REPORT ---
ABD/PELVIS IV AND ORAL CONT CLINICAL HISTORY: 77 years-old Female presenting with diarrhea, diffuse abdominal pain, history of endometrial carcinoma. TECHNIQUE: Multidetector CT of the abdomen and pelvis was performed after the administration of oral and intravenous contrast. IV contrast: 116 mL of Optiray 320. A dose lowering technique was used consistent with the principles of ALARA (as low as reasonably achievable). COMPARISON: 09/26/2017. CT DOSE (mGy.cm): The estimated cumulative dose is 658.63 mGy.cm. FINDINGS: Occupational Health Physiotherapist topogram: Unremarkable. Lung bases: Minimal basilar opacities, likely atelectasis. Mitral annular calcification. Biatrial enlargement of the heart. No pericardial or pleural effusion. Liver: Normal morphology. No liver lesion. Patent hepatic vasculature. Biliary: No intrahepatic or extrahepatic biliary ductal dilatation. Normal gallbladder. Pancreas: Mild parenchymal atrophy. Spleen: Normal. Splenule noted. Adrenal glands: Normal. Kidneys and ureters: Normal. No hydronephrosis. Bladder: Normal. Pelvic organs: Uterus surgically absent. No adnexal masses. Bowel: Diffuse subcutaneous edema of the colon. This involves essentially the entire colon with the transverse colon involved to the least degree. No pneumatosis. No pericolonic inflammatory change. No bowel obstruction. Small hiatal hernia. Hyperenhancement of the duodenal bulb and descending duodenum. No small bowel wall thickening. Peritoneal cavity: No free fluid or intraperitoneal gas. No soft tissue peritoneal nodularity. Lymph nodes: Mildly prominent left periaortic lymph nodes decreased in size since the prior exam. No new sites of lymphadenopathy. Vasculature: Atherosclerosis of the normal caliber abdominal aorta. IVC patent. The diminutive caliber of the aorta and flattened appearance of the IVC suggest hypovolemia. Abdominal wall: Postsurgical changes of the infra and local abdominal wall. Small fat-containing periumbilical hernia. Musculoskeletal: Degenerative changes of the spine. Degenerative changes of the hips. IMPRESSION: 1. Evidence of significant colitis. No perforation or pneumatosis. Given the distribution this is most likely infectious or inflammatory. No pathologic distention to suggest toxic megacolon. Consider follow-up imaging to ensure resolution. 2. Evidence of hypovolemia. 3. Postsurgical changes of hysterectomy. No evidence of metastatic disease in abdomen or pelvis. 4. Decreased prominence of left periaortic lymphadenopathy. No pathologically enlarged lymph nodes. 5. Cardiomegaly. Electronically signed by: Robert Gaytan M.D. 11/30/2017 1:36 PM Dictated Date/Time: 11/30/2017 1:24 PM
[2017-11-30] MEDS ORDERED: OCTREOTIDE IV BOLUS & DRIP IV STA (13:59)
[2017-11-30] MEDS ORDERED: PROTHROMBIN COMP KCENTRA IV STA (13:59)
[2017-11-30] MEDS ORDERED: OCTREOTIDE ACETATE INJ 100 MCG in SYR 9 ML PHA PREPARED IV ONE (14:15)
[2017-11-30] MEDS ORDERED: OCTREOTIDE ACETATE INJ 500 MCG in NSS 100ML IV SCH (14:30)
[2017-11-30] MEDS ORDERED: PHYTONADIONE INJ 10 MG in SODIUM CHLORIDE 0.9% 50ML 50 ML IV ONE (14:45)
--- NOTE | 2017-11-30 14:49 | Progress Note ---
Progress Note Date of Service Nov 30, 2017. Progress Note Subjective: Overnight patient had episodes of blood in the stool and noted to have downtrending Hgb. Patient was given Vitamin K 2.5 mg and resumed on IV fluids. Gastroenterology consulted and recommended IV protonics and abdominal imaging. Radiology impressions of "Evidence of significant colitis. No perforation or pneumatosis. Given the distribution this is most likely infectious or inflammatory." However as per Gastroenterology interpretation of the scan, there is concern for bleeding if the colon mucosa and recommended further reversal agents of the INR and transfer to the ICU for further monitoring. Patient was explained the plan and agrees with transfer to the ICU. Physical exam General- No acute distress Head- atraumatic Eyes- EOMI ENT- oropharynx clear Neck- supple, no JVD Lungs- clear to auscultation Heart- irregular rhythm; rate controlled Abdomen- normal bowel sounds, soft Extremities- no calf tenderness Neuro- alert, oriented x 3; EOMI; no facial palsy Skin- warm & dry Assessment and Plan GI bleed in context of diffuse ischemic colitis and supratherapeutic INR -received Vitamin K 2.5 mg in AM of 11/30/17 -additional Vitamin K ordered by gastroenterology and also gastroenterology to order Kcentra (Prothrombin Complex Concentrate) for continued management of INR reversal -continue IV pantoprazole -Gastroenterology ordered IV octreotide -Gastroenterology asked for general surgery evaluation in case of pneumatosis -2 PRBC ordered, transfuse as needed if hemoglobin continues to downtrend or hemodynamically unstable -appreciate Clinical Nursing Instructor physician to assess for further medical management Initially presentation was for treatment for Nausea Associated with Diarrhea and Chills likely secondary to recent chemotherapy at this time, no infectious sources identified and was off Zosyn Hypokalemia repleted Hypomagnesemia serum magnesium 1.6 and was given IV magnesium 2 grams Neutropenia resolving initial neutropenia likely from chemotherapy Endometrial Carcinoma patient was evaluated by hematology/oncology as inpatient consultation and will need to follow up as outpatient and re-evaluate future chemotherapy plans while minimizing side effects Chronic Afib with RVR HR on admission was in the 130's had not been taking her metoprolol due to nausea/fatigue ECHO * The rhythm is atrial fibrillation. * Ejection Fraction = 60-65%. * The left atrium is severely dilated. * There is mild tricuspid regurgitation. * Aortic valve sclerosis mild, without significant aortic valvular stenosis. * There is mild mitral regurgitation. Rate controlled after being off Cardiazem drip and currently on metoprolol Cardiology service has been following the patient DVT ppx: SCDs Full Code
[2017-11-30] MEDS ORDERED: PROTHROMBIN COMP KCENTRA IV ONE (15:30)
--- NOTE | 2017-11-30 15:32 | Surgery Consultation ---
Consultation Date of Consultation: Nov 30, 2017. Attending Physician: Ron Cavanaugh M.D. History of Present Illness pt had her first dose of a new round of chemo therapy for endometrial cancer approx 9 days ago. has had diarrhea ever since and now with some hematochezia. admitted some nausea originally but hungry now. denies abdominal pain. CT shows colitis. INR almost 6. Past Medical/Surgical History Medical Problems: (1) Atrial fibrillation with rapid ventricular response Status: Acute (2) Dehydration Status: Acute (3) Leukopenia Status: Acute Family History FH: colon cancer SISTER Thyroid disorder SISTER MOTHER Social History Smoking Status: Unknown if Ever Smoked Drug Use: none Marital Status: Housing Status: lives with family Occupation Status: retired Allergies Coded Allergies: No Known Allergies (Unverified , 10/19/16) Home Medications Scheduled Aspirin (Aspirin Ec), 81 MG PO DAILY Cholecalciferol (Vitamin D3), 1 TAB PO DAILY Dexamethasone (Dexamethasone), 8 MG PO UD Metoprolol Tartrate (Lopressor) (Lopressor), 50 MG PO BID Warfarin Sod (Coumadin), 2.5 MG PO UD Scheduled PRN Furosemide (Lasix), 20 MG PO DAILY PRN for as needed Potassium Chloride (Potassium Chloride Cr), 10 MEQ PO DAILY PRN for as needed Prochlorperazine Maleate (Compazine), 10 MG PO Q6H PRN for Nausea Current Inpatient Medications Current Inpatient Medications Medications (Trade) Dose Ordered Sig/Glenda Route Start Time Stop Time Status Last Admin Dose Admin Aspirin (Ecotrin Tab) 81 mg DAILY PO 11/28/17 09:00 12/28/17 08:59 Future Hold 11/29/17 07:30 81 MG Loperamide HCl (Imodium A-D Liquid) 2 mg UD PRN PO 11/28/17 06:45 12/28/17 06:44 11/28/17 07:38 2 MG Lidocaine HCl/ Diphenhydramine HCl/Al Hydroxide/ Mg Hydroxide/ Glycerin/Barcode QID MT 11/28/17 21:00 12/28/17 20:59 11/30/17 07:52 5 ML Ondansetron HCl (Zofran Inj) 4 mg Q6H PRN IV 11/29/17 09:00 12/29/17 08:59 Magnesium Oxide (Mag-Ox Tab) 400 mg BID PO 11/29/17 21:00 12/29/17 20:59 11/29/17 21:06 400 MG Sodium Chloride 1,000 ml @ 100 mls/hr Q10H STAT IV 11/30/17 07:52 11/30/17 17:51 11/30/17 09:11 100 MLS/HR Metoprolol Tartrate (Lopressor Tab) 50 mg BID PO 11/30/17 21:00 12/30/17 20:59 Pantoprazole Sodium 40 mg/ Dextrose 100 ml @ 20 mls/hr Q5H IV 11/30/17 10:45 12/30/17 10:44 11/30/17 10:44 20 MLS/HR Ioversol (Optiray 320) 111 ml UD PRN IV 11/30/17 10:15 12/04/17 10:14 Octreotide Acetate 500 mcg/ Sodium Chloride 105 ml @ 10 mls/hr [id number] IV 11/30/17 14:30 12/30/17 14:29 11/30/17 14:44 10 MLS/HR Prothrombin Complex Concent (Human) 3000 unit/ Syringe 120 ml @ 10 mls/min NOW ONCE IV 11/30/17 15:30 11/30/17 15:41 Review of Systems Constitutional: + weakness, + fatigue Abdomen: + diarrhea, + GI bleeding Physical Exam Date Time Temp Pulse Resp B/P (MAP) Pulse Ox O2 Delivery O2 Flow Rate FiO2 11/30/17 11:05 36.5 104 19 106/69 (81) 98 Room Air 11/30/17 08:30 Room Air 11/30/17 07:02 37.0 97 18 97/67 (77) 97 Room Air 67.0 11/30/17 07:00 36.9 98 18 89/56 (67) 98 Room Air 11/30/17 06:19 36.5 99 20 101/70 (80) 99 Room Air 11/30/17 03:24 36.6 97 18 99/65 (76) 96 Room Air 11/30/17 00:35 95/62 (73) 11/30/17 00:00 Room Air 11/29/17 23:31 36.4 96 18 91/66 (74) 96 Room Air 11/29/17 20:00 Room Air 11/29/17 19:43 36.8 100 18 97/67 (77) 98 Room Air 11/29/17 15:40 Room Air General Appearance: WD/WN, no apparent distress Head: normocephalic Eyes: EOMI, sclerae normal Neck: no JVD, trachea midline Respiratory/Chest: no respiratory distress, no accessory muscle use Cardiovascular: + irregularly irregular Abdomen/GI: non tender, soft Neurologic/Psych: alert, oriented x 3 Skin: + pallor Laboratory Results Last 24 Hours Test 11/30/17 06:25 11/30/17 07:05 11/30/17 09:00 11/30/17 12:27 White Blood Count 6.80 K/uL 6.94 K/uL Red Blood Count 2.83 M/uL 2.51 M/uL Hemoglobin 9.3 g/dL 8.3 g/dL Hematocrit 27.9 % 24.8 % Mean Corpuscular Volume 98.6 fL 98.8 fL Mean Corpuscular Hemoglobin 32.9 pg 33.1 pg Mean Corpuscular Hemoglobin Concent 33.3 g/dl 33.5 g/dl Platelet Count 212 K/uL 207 K/uL Mean Platelet Volume 10.9 fL 10.8 fL RDW Standard Deviation 48.3 fL 47.9 fL RDW Coefficient of Variation 13.3 % 13.3 % Neutrophils % (Manual) 68.1 % Lymphocytes % (Manual) 8.6 % Monocytes % (Manual) 8.6 % Metamyelocytes % 4.3 % Myelocytes % 9.5 % Blast Cells % 0.9 % Neutrophils # (Manual) 4.63 K/uL Total Absolute Neutrophils 4.63 K/uL Lymphocytes # (Manual) 0.58 K/uL Total Absolute Lymphocytes 0.58 K/uL Monocytes # (Manual) 0.58 K/uL Metamyelocytes # 0.29 K/uL Myelocytes # 0.65 K/uL Blast Cells # 0.06 K/uL Blood Smear Review Toxic Granulation 2+ Absolute Reticulocyte Count 0.03 10^6/uL Percent Reticulocyte Count 1.2 % Prothrombin Time 56.5 SECONDS Prothromb Time International Ratio 5.6 Sodium Level 142 mmol/L Potassium Level 4.0 mmol/L Chloride Level 113 mmol/L Carbon Dioxide Level 25 mmol/L Anion Gap 5.0 mmol/L Blood Urea Nitrogen 23 mg/dl Creatinine 0.64 mg/dl Est Creatinine Clear Calc Drug Dose 77.1 ml/min Estimated GFR () 99.8 Estimated GFR (Non- 86.1 BUN/Creatinine Ratio 35.3 Random Glucose 105 mg/dl Calcium Level 7.2 mg/dl Magnesium Level 1.6 mg/dl Iron Level 86 mcg/dl Total Iron Binding Capacity 140 mcg/dl Total Bilirubin 0.1 mg/dl Aspartate Amino Transf (AST/SGOT) 17 U/L Alanine Aminotransferase (ALT/SGPT) 20 U/L Alkaline Phosphatase 70 U/L Total Protein 3.9 gm/dl Albumin 1.5 gm/dl Globulin 2.4 gm/dl Albumin/Globulin Ratio 0.6 Bedside Glucose 108 mg/dl Stool Occult Blood POSITIVE Test 11/30/17 15:11 Assessment & Plan 1. abnormal ct scan/colits/GI bleeding suspect sloughing mucosa secondary to chemo vs ischemic colitis coupled with coagulopathy pt with benign abdominal exam--no indication for surgery currently. C. diff negative /wbc 6 will start flagyl /supportive care/reverse INR will follow along closely. reviewed case/ct scan with GI and radiology. 2. endometrial cancer
[2017-11-30] MEDS: SODIUM CHLORIDE 0.9% 1000ML 1,000 ML IV SCH (17:00)
--- NOTE | 2017-11-30 17:24 | Critical Care Consultation ---
Critical Care Consultation Date of Consultation: Nov 30, 2017. Attending Physician: Ron Cavanaugh M.D. Reason for Consultation: GI bleeding. History of Present Illness Dear Dr. Cavanaugh, Dr. Harvey: Thank you for your kind referral of Mrs. Harris to critical care service. This is 77-year-old female with history of endometrial carcinoma status post hysterectomy followed by chemotherapy 6 cycles with [place] based regimen back in 2014 and external beam radiation, with recurrence requiring administration of chemotherapy with similar regimen, where the patient received 2 doses of chemotherapy again most recently was 10 days ago. The patient started to have diarrhea for the past 6 days accompanied with intractable nausea vomiting. No abdominal pain was reported. She denies noticing any blood or melena. Patient did not have any chest pain. The patient presented to the oncology clinic where she was sent to the ED after she was found to be pale and weak with generalized fatigue. The patient was admitted to the hospital initially and treated for intractable diarrhea and nausea vomiting. The patient today was found to be passing large maroon blood bowel movement. Given the fact that she had a history of A. fib, has been maintained on Coumadin , her INR was 5.6 and she was reversed using PCC and vitamin K IV. The patient started also on blood transfusion and transferred to the ICU for further management. Dr. harvey from GI evaluated the patient as well as Dr. Rock from surgery. The patient started empirically on PPI and octreotide drip. Abdominal CT was done which showed bowel thickening and intramural has concerning for ischemic colitis. The patient denies any abdominal pain, her abdominal exam earlier by Dr. Cavanaugh was completely soft and benign. In the ICU, the patient was noted to be chronically ill, heart rate was in the range of 130-145, blood pressure is variable with systolic approximately 90, difficult to assess due to her poor vasculature. Heart examination S1-S2 irregularly irregular but tachycardic, and the patient abdominal exam remains very benign. The patient received 2 units of blood and a third unit was also ordered. Most recent hematocrit was 27. This is a drop from 39, 24 hours ago. Family History FH: colon cancer SISTER Thyroid disorder SISTER MOTHER Social History Smoking Status: Unknown if Ever Smoked Drug Use: none Marital Status: Housing Status: lives with family Occupation Status: retired Allergies Coded Allergies: No Known Allergies (Unverified , 10/19/16) Home Medications Scheduled Aspirin (Aspirin Ec), 81 MG PO DAILY Cholecalciferol (Vitamin D3), 1 TAB PO DAILY Dexamethasone (Dexamethasone), 8 MG PO UD Metoprolol Tartrate (Lopressor) (Lopressor), 50 MG PO BID Warfarin Sod (Coumadin), 2.5 MG PO UD Scheduled PRN Furosemide (Lasix), 20 MG PO DAILY PRN for as needed Potassium Chloride (Potassium Chloride Cr), 10 MEQ PO DAILY PRN for as needed Prochlorperazine Maleate (Compazine), 10 MG PO Q6H PRN for Nausea Current Inpatient Medications Current Inpatient Medications Medications (Trade) Dose Ordered Sig/Glenda Route Start Time Stop Time Status Last Admin Dose Admin Aspirin (Ecotrin Tab) 81 mg DAILY PO 11/28/17 09:00 12/28/17 08:59 Future Hold 11/29/17 07:30 81 MG Loperamide HCl (Imodium A-D Liquid) 2 mg UD PRN PO 11/28/17 06:45 12/28/17 06:44 11/28/17 07:38 2 MG Lidocaine HCl/ Diphenhydramine HCl/Al Hydroxide/ Mg Hydroxide/ Glycerin/Barcode QID MT 11/28/17 21:00 12/28/17 20:59 11/30/17 07:52 5 ML Ondansetron HCl (Zofran Inj) 4 mg Q6H PRN IV 11/29/17 09:00 12/29/17 08:59 Magnesium Oxide (Mag-Ox Tab) 400 mg BID PO 11/29/17 21:00 12/29/17 20:59 11/29/17 21:06 400 MG Sodium Chloride 1,000 ml @ 100 mls/hr Q10H STAT IV 11/30/17 07:52 11/30/17 17:51 11/30/17 09:11 100 MLS/HR Metoprolol Tartrate (Lopressor Tab) 50 mg BID PO 11/30/17 21:00 12/30/17 20:59 Pantoprazole Sodium 40 mg/ Dextrose 100 ml @ 20 mls/hr Q5H IV 11/30/17 10:45 12/30/17 10:44 11/30/17 10:44 20 MLS/HR Ioversol (Optiray 320) 111 ml UD PRN IV 11/30/17 10:15 12/04/17 10:14 Octreotide Acetate 500 mcg/ Sodium Chloride 105 ml @ 10 mls/hr [id number] IV 11/30/17 14:30 12/30/17 14:29 11/30/17 14:44 10 MLS/HR Cefepime HCl 2000 mg/Syringe 12.5 ml @ 5 mls/min Q8H IV 11/30/17 18:00 12/10/17 21:59 Metronidazole 500 mg/Prmx 100 ml @ 100 mls/hr Q8H IV 11/30/17 18:00 12/10/17 16:29 Review of Systems Constitutional: No fever, No chills, No sweats, No weight loss, No weakness, No fatigue, No problem reported Eyes: No worsening of vision, No eye pain, No redness, No discharge, No diplopia, No problem reported ENT: No hearing loss, No unusual epistaxis, No nasal symptoms, No sore throat, No tinnitus, No dental problems, No trouble swallowing, No problem reported Respiratory: No cough, No sputum, No wheezing, No shortness of breath, No dyspnea on exertion, No dyspnea at rest, No hemoptysis, No problem reported Cardiovascular: No chest pain, No orthopnea, No PND, No edema, No claudication , No palpitations, No problem reported Abdomen: + nausea, + vomiting, + diarrhea Musculoskeletal: No joint pain, No muscle pain, No swelling, No calf pain, No problem reported Genitourinary - Female: No dysuria, No urinary frequency, No urinary urgency, No urinary incontinence, No urinary retention, No hematuria, No dysmenorrhea, No menorrhagia, No metrorrhagia, No rash, No vaginal bleeding, No vaginal discharge, No vaginal itching, No vulvodynia, No , No problem reported Neurologic: No memory loss, No paralysis, No weakness, No numbness/tingling, No vertigo, No balance problems, No problem reported Psychiatric: No depression symptoms, No anhedonism, No anxiety, No insomnia, No substance abuse, No problem reported Hematologic / Lymphatic: + swollen lymph nodes Integumentary: No rash, No itch, No new/changing skin lesions, No color change , No bleeding, No problem reported Allergic / Immunologic: No environmental allergies, No seasonal allergies, No pet sensitivities, No food allergies, No hives, No frequent infections, No poor healing, No prolonged convalescence, No problem reported Physical Exam Date Time Temp Pulse Resp B/P (MAP) Pulse Ox O2 Delivery O2 Flow Rate FiO2 11/30/17 16:45 124 22 93/64 97 11/30/17 16:30 36.9 101 24 76/39 86 11/30/17 16:00 36.6 123 18 77/58 (64) 98 Room Air 11/30/17 11:05 36.5 104 19 106/69 (81) 98 Room Air 11/30/17 08:30 Room Air 11/30/17 07:02 37.0 97 18 97/67 (77) 97 Room Air 67.0 11/30/17 07:00 36.9 98 18 89/56 (67) 98 Room Air 11/30/17 06:19 36.5 99 20 101/70 (80) 99 Room Air 11/30/17 03:24 36.6 97 18 99/65 (76) 96 Room Air 11/30/17 00:35 95/62 (73) 11/30/17 00:00 Room Air 11/29/17 23:31 36.4 96 18 91/66 (74) 96 Room Air 11/29/17 20:00 Room Air 11/29/17 19:43 36.8 100 18 97/67 (77) 98 Room Air General Appearance: uncomfortable Eyes: EOMI ENT: normal throat exam Neck: trachea midline Respiratory: breath sounds normal Cardiovasular: irregular rate, other (Tachycardia with RVR.) Abdomen: non tender, normal bowel sounds, no rebound, no masses, no guarding, no organomegaly Lower Extremities: no edema Neuro: alert, oriented x 3, normal motor exam, normal sensation Psychiatric: normal affect Laboratory Results Last 24 Hours Test 11/30/17 06:25 11/30/17 07:05 11/30/17 09:00 11/30/17 12:27 White Blood Count 6.80 K/uL 6.94 K/uL Red Blood Count 2.83 M/uL 2.51 M/uL Hemoglobin 9.3 g/dL 8.3 g/dL Hematocrit 27.9 % 24.8 % Mean Corpuscular Volume 98.6 fL 98.8 fL Mean Corpuscular Hemoglobin 32.9 pg 33.1 pg Mean Corpuscular Hemoglobin Concent 33.3 g/dl 33.5 g/dl Platelet Count 212 K/uL 207 K/uL Mean Platelet Volume 10.9 fL 10.8 fL RDW Standard Deviation 48.3 fL 47.9 fL RDW Coefficient of Variation 13.3 % 13.3 % Neutrophils % (Manual) 68.1 % Lymphocytes % (Manual) 8.6 % Monocytes % (Manual) 8.6 % Metamyelocytes % 4.3 % Myelocytes % 9.5 % Blast Cells % 0.9 % Neutrophils # (Manual) 4.63 K/uL Total Absolute Neutrophils 4.63 K/uL Lymphocytes # (Manual) 0.58 K/uL Total Absolute Lymphocytes 0.58 K/uL Monocytes # (Manual) 0.58 K/uL Metamyelocytes # 0.29 K/uL Myelocytes # 0.65 K/uL Blast Cells # 0.06 K/uL Blood Smear Review Toxic Granulation 2+ Absolute Reticulocyte Count 0.03 10^6/uL Percent Reticulocyte Count 1.2 % Prothrombin Time 56.5 SECONDS Prothromb Time International Ratio 5.6 Sodium Level 142 mmol/L Potassium Level 4.0 mmol/L Chloride Level 113 mmol/L Carbon Dioxide Level 25 mmol/L Anion Gap 5.0 mmol/L Blood Urea Nitrogen 23 mg/dl Creatinine 0.64 mg/dl Est Creatinine Clear Calc Drug Dose 77.1 ml/min Estimated GFR () 99.8 Estimated GFR (Non- 86.1 BUN/Creatinine Ratio 35.3 Random Glucose 105 mg/dl Calcium Level 7.2 mg/dl Magnesium Level 1.6 mg/dl Iron Level 86 mcg/dl Total Iron Binding Capacity 140 mcg/dl Total Bilirubin 0.1 mg/dl Aspartate Amino Transf (AST/SGOT) 17 U/L Alanine Aminotransferase (ALT/SGPT) 20 U/L Alkaline Phosphatase 70 U/L Total Protein 3.9 gm/dl Albumin 1.5 gm/dl Globulin 2.4 gm/dl Albumin/Globulin Ratio 0.6 Bedside Glucose 108 mg/dl Stool Occult Blood POSITIVE Test 11/30/17 15:59 Lactic Acid Level 1.4 mmol/L Diagnostic Results Abdominal CT was reviewed which showed bowel thickening mainly in descending colon, no significant intra-mural pneumatosis. Flattened IVC, evidence of periaortic lymphadenopathy noted. Distended bladder. Her laboratory revealed drop in hematocrit from 39-27. INR is 5.6 and repeat INR is pending. BUN/ creatinine are the same. Assessment & Plan 1. Lower GI bleeding, the appearance of colitis on the CAT scan can represent ischemic colitis especially with normal abdominal exam versus submucosal sloughing and lower GI bleeding versus chemo induced enteropathy with mucosal sloughing. The patient is C. difficile negative. 2. A. fib with RVR. 3. Coagulopathy secondary to Coumadin. 4. Endometrial CA status post chemotherapy 10 days ago. Plan: 1. Aggressive blood transfusion. 2. Reversal of Coumadin. 3. Agree with PCC and vitamin K. 4. IV fluid. IVC is flattened. Normal saline started and 100 mL an hour, will increase the rate was a blood is transfused. 5. Digoxin for rate control. 6. The patient started on PPI and octreotide, and I will check with Dr. harvey to stop them both. The patient clearly has lower GI bleeding. 7. Serial hemoglobin and hematocrit. 8. Appreciate GI and surgery input. 9. tagged RBC scan. 10. Monitor in the ICU. 11. Venodyne boots. 12. Appreciate hematology oncology input. 13. Empiric antibiotics with cefepime and Flagyl. 14. C. difficile antigen reported negative. Case discussed with the patient herself, the staff and details, Dr. Cavanaugh and Dr. harvey. Old appreciated. CCT 60 minutes.
[2017-11-30] MEDS: DIGOXIN IV 250 MCG in SYRINGE 9 ML IV SCH ×2 (17:28→19:50)
[2017-11-30] MEDS ORDERED: CEFEPIME IV 2,000 MG in SYRINGE 0 ML IV SCH (18:00)
[2017-11-30] MEDS: METRONIDAZOLE / NSS 500 MG in PREMIXED NSS 100 ML IV SCH (18:08)
[2017-11-30] MEDS: ALBUMIN HUMAN 5% 12.5 GM/250 ML VIAL IV SCH (18:09)
[2017-11-30] MEDS ORDERED: METOPROLOL TARTRATE 50 MG TAB PO SCH ×2 (21:00)
[2017-11-30] MEDS ORDERED: METRONIDAZOLE 500 MG TAB PO SCH (21:00)
[2017-11-30 21:30] LABS: HEMATOCRIT 32.4 % (37-47); HEMOGLOBIN 11.2 g/dL (12.0-16.0)
[2017-12-01] VITALS (21 sets, daily range): BP systolic 96–177; BP diastolic 43–125; PULSE 84–109; TEMP 36.5–36.7; O2SAT 92–100
[2017-12-01] MEDS: ALBUMIN HUMAN 5% 12.5 GM/250 ML VIAL IV SCH ×3 (00:05→14:55)
[2017-12-01] MEDS: METOPROLOL TARTRATE 1 MG/ML VIAL IV. SCH ×4 (00:07→17:41)
[2017-12-01] MEDS: METRONIDAZOLE / NSS 500 MG in PREMIXED NSS 100 ML IV SCH ×3 (01:59→17:41)
[2017-12-01] MEDS: CEFEPIME IV 1,000 MG in SYRINGE 0 ML IV SCH ×3 (01:59→17:40)
[2017-12-01] MEDS: PANTOprazole INJ 40 MG in DEXTROSE 5% 100ML IV SCH (05:01)
[2017-12-01 05:12] LABS: HEMATOCRIT 26.9 % (37-47); HEMOGLOBIN 9.3 g/dL (12.0-16.0); MEAN CELL VOLUME 94.7 fL (80-100); MEAN CORPUSCULAR HEMOGLOBIN 32.7 pg (25-34); MEAN CORPUSCULAR HGB CONC 34.6 g/dl (32-36); MEAN PLATELET VOLUME 10.6 fL (7.4-10.4); PLATELET COUNT 117 K/uL (130-400); RED CELL DISTRIBUTION WIDTH CV 14.3 % (11.5-14.5); RED CELL DISTRIBUTION WIDTH SD 49.6 fL (36.4-46.3); WHITE BLOOD COUNT 6.97 K/uL (4.8-10.8)
[2017-12-01 05:51] LABS: ALBUMIN 2.2 gm/dl (3.4-5.0); CALCIUM 6.9 mg/dl (8.5-10.1); CREATININE 0.56 mg/dl (0.60-1.20); POTASSIUM 3.6 mmol/L (3.5-5.1); TOTAL PROTEIN 4.1 gm/dl (6.4-8.2)
--- NOTE | 2017-12-01 07:58 | Surgery Progress Note ---
Surgery Progress Note Date of Service Dec 01, 2017. Subjective + feeling well (denies pain), + bowel movement (small bloody last evening), + diet (ice) Objective Vital Signs: Date Time Temp Pulse Resp B/P (MAP) Pulse Ox O2 Delivery O2 Flow Rate FiO2 12/01/17 06:04 89 114/74 12/01/17 05:16 25 117/92 (100) 12/01/17 04:11 36.5 12/01/17 04:11 18 106/56 (73) 98 12/01/17 03:01 21 124/63 (83) 94 12/01/17 02:00 22 103/63 (76) 94 12/01/17 01:01 15 96/43 (60) 96 12/01/17 00:31 18 128/71 (90) 95 12/01/17 00:07 87 117/61 12/01/17 00:06 36.6 22 117/61 (79) 100 12/01/17 00:06 22 117/61 (79) 100 12/01/17 00:00 97 Room Air 11/30/17 23:30 20 100/60 (73) 97 11/30/17 23:00 22 103/64 (77) 98 11/30/17 20:00 Room Air 11/30/17 19:50 122 11/30/17 17:45 118 18 100/62 99 11/30/17 17:33 36.3 116 18 86/46 100 11/30/17 17:30 36.3 130 18 89/57 94 11/30/17 17:28 138 11/30/17 17:22 137 18 89/57 95 11/30/17 17:00 87 20 74/57 95 11/30/17 16:45 124 22 93/64 97 11/30/17 16:30 36.9 101 24 76/39 86 11/30/17 16:00 36.6 123 18 77/58 (64) 98 Room Air 11/30/17 11:05 36.5 104 19 106/69 (81) 98 Room Air 11/30/17 08:30 Room Air General Appearance: no apparent distress Abdomen: non tender, non distended, soft Laboratory Results: Results Past 24 Hours Test 11/30/17 09:00 11/30/17 12:27 11/30/17 15:59 11/30/17 17:22 Range/Units Stool Occult Blood POSITIVE NEGATIVE White Blood Count 6.94 4.8-10.8 K/uL Red Blood Count 2.51 4.2-5.4 M/uL Hemoglobin 8.3 12.0-16.0 g/dL Hematocrit 24.8 37-47 % Mean Corpuscular Volume 98.8 80-100 fL Mean Corpuscular Hemoglobin 33.1 25-34 pg Mean Corpuscular Hemoglobin Concent 33.5 32-36 g/dl RDW Standard Deviation 47.9 36.4-46.3 fL RDW Coefficient of Variation 13.3 11.5-14.5 % Platelet Count 207 130-400 K/uL Mean Platelet Volume 10.8 7.4-10.4 fL Lactic Acid Level 1.4 0.4-2.0 mmol/L Prothrombin Time 11.0 9.0-12.0 SECONDS Prothromb Time International Ratio 1.0 0.9-1.1 Test 11/30/17 20:56 12/01/17 04:56 Range/Units Hemoglobin 11.2 9.3 12.0-16.0 g/dL Hematocrit 32.4 26.9 37-47 % White Blood Count 6.97 4.8-10.8 K/uL Red Blood Count 2.84 4.2-5.4 M/uL Mean Corpuscular Volume 94.7 80-100 fL Mean Corpuscular Hemoglobin 32.7 25-34 pg Mean Corpuscular Hemoglobin Concent 34.6 32-36 g/dl Platelet Count 117 130-400 K/uL Mean Platelet Volume 10.6 7.4-10.4 fL RDW Standard Deviation 49.6 36.4-46.3 fL RDW Coefficient of Variation 14.3 11.5-14.5 % Neutrophils % (Manual) 68.7 % Lymphocytes % (Manual) 7.8 % Monocytes % (Manual) 3.5 % Basophils % (Manual) 0.9 % Metamyelocytes % 10.4 % Myelocytes % 8.7 % Neutrophils # (Manual) 4.79 1.4-6.5 K/uL Total Absolute Neutrophils 4.79 1.4-6.5 K/uL Lymphocytes # (Manual) 0.54 1.2-3.4 K/uL Total Absolute Lymphocytes 0.54 1.2-3.4 K/uL Monocytes # (Manual) 0.24 0.11-0.59 K/uL Basophils # (Manual) 0.06 0-0.2 K/uL Metamyelocytes # 0.72 0-0 K/uL Myelocytes # 0.61 0-0 K/uL Toxic Vacuolation 2+ Echinocytes 1+ Prothrombin Time 10.5 9.0-12.0 SECONDS Prothromb Time International Ratio 1.0 0.9-1.1 Sodium Level 141 136-145 mmol/L Potassium Level 3.6 3.5-5.1 mmol/L Chloride Level 114 98-107 mmol/L Carbon Dioxide Level 21 21-32 mmol/L Anion Gap 6.0 3-11 mmol/L Blood Urea Nitrogen 14 7-18 mg/dl Creatinine 0.56 0.60-1.20 mg/dl Est Creatinine Clear Calc Drug Dose 88.1 ml/min Estimated GFR () 104.2 Estimated GFR (Non- 89.9 BUN/Creatinine Ratio 24.4 10-20 Random Glucose 104 70-99 mg/dl Calcium Level 6.9 8.5-10.1 mg/dl Total Bilirubin 0.6 0.2-1 mg/dl Aspartate Amino Transf (AST/SGOT) 15 15-37 U/L Alanine Aminotransferase (ALT/SGPT) 20 12-78 U/L Alkaline Phosphatase 51 45-117 U/L Total Protein 4.1 6.4-8.2 gm/dl Albumin 2.2 3.4-5.0 gm/dl Globulin 1.9 2.5-4.0 gm/dl Albumin/Globulin Ratio 1.2 0.9-2 Microbiology Results 11/30/17 MRSA DNA Surveillance Screen - Final, Complete Specimen Negative for MRSA by DNA Probe 11/30/17 Shiga Toxin Test, Received Pending 11/30/17 Stool Culture, Received Pending 11/30/17 C.difficile Toxin B Gene (PCR) - Final, Complete No C. difficile toxin B gene detected Assessment & Plan abnormal ct scan/colits/GI bleeding abdominal exam remains benign INR normalized Hgb 8-->11 after transfusion last evening and back to 9 this AM some tachycardia last PM but normal HR this AM ok to have clears from our standpoint
--- NOTE | 2017-12-01 08:32 | HEME/ONC PROGRESS NOTE ---
DATE: 12/01/2017 DIAGNOSES: 1. Intractable nausea and vomiting. 2. Intractable diarrhea. 3. Metastatic endometrial carcinoma. 4. Electrolyte dysfunction. 5. Atrial fibrillation. SUBJECTIVE: Colleen was seen and examined at bedside. She was transferred to the ICU yesterday after developing an acute lower GI bleed. Apparently, Colleen yielded a fair amount of blood that was seen by the GI service and CT scan of the abdomen and pelvis was performed indicating a pancolitis. Apparently, according to nursing staff, she dropped her pressure to 70, but was effectively resuscitated with IV fluids and blood. She was given octreotide to control diarrhea which has been largely effective. Colleen is back to her baseline, feels relatively well, offers no specific complaints. PHYSICAL EXAMINATION: GENERAL: She is in no acute distress. VITAL SIGNS: Temperature 36.5, respiratory rate is 18, blood pressure 106/56, pulse ox 98% on room air. SKIN: Without rash or lesion. HEENT: Oral mucosa without erythema or ulceration. NECK: Supple. HEART: Regular rate and rhythm. LUNGS: Clear to auscultation. ABDOMEN: Soft, nontender, nondistended. EXTREMITIES: No clubbing, cyanosis or edema. NEUROLOGIC: Grossly intact. LABORATORY DATA: WBC count 6970, hemoglobin 9.3, platelet count 117,000. Sodium 141, potassium 3.6, chloride 114, carbon dioxide 21, creatinine 0.56, BUN 14. Albumin 2.2. LFTs were otherwise unremarkable. IMPRESSION: 1. Colitis, unspecified. 2. Hypoalbuminemia. 3. Intractable diarrhea. 4. Intractable nausea and vomiting. 5. Hypoalbuminemia. 6. Coagulopathy attributable to anticoagulation. PLAN: Colleen was seen and examined this morning in the ICU. Apparently, last 24 hours turned out to be a bit tenuous. She bled profusely from her rectum. GI is on consult and a CT scan of the abdomen and pelvis performed suggestive of colitis. I informally spoke with Dr. Harvey this morning. He will plan for scope and biopsy when the patient is medically stable. Again, I do not believe her prior chemo is the origin of her bleeding issues. Obviously, she became coagulopathic which is not surprising considering she has not eaten much and had been receiving IV antibiotics. Clinically, she looks much better this morning and most likely will be transferred to a telemetry room later on today. We will continue to follow Colleen periodically through her hospital stay. I agree with medical management thus far and have nothing further to add. I will ensure follow up as scheduled post-discharge to discuss moving forward with salvage chemotherapy.
--- NOTE | 2017-12-01 09:22 | Cardiology Follow-Up ---
Subjective General Date of Service: Dec 01, 2017. Chief Complaint: Atrial fibrillation Pt evaluation today including: conversation w/ patient, physical exam, chart review, lab review, review of studies, review of inpatient medication list History of Present Illness Patient seen and examined. Events over the last 24 hours noted and discussed/ reviewed with the patient. She is feeling and looking much better. No chest pain , dyspnea, or tachypalpitations. Telemetry: Chronic atrial fibrillation with acceptable rate control. She received two 5 mg doses of IV Lopressor and two 250 mcg doses of IV digoxin. Allergies Coded Allergies: No Known Allergies (Unverified , 10/19/16) Social History Smoking Status: Unknown if Ever Smoked Hx Tobacco Use In Past Year?: No Hx Alcohol Use - Type And Amou: Yes (socially, ) Hx Substance Use - Type And Am: No Problem List Medical Problems: (1) Atrial fibrillation with rapid ventricular response Status: Acute (2) Dehydration Status: Acute (3) Leukopenia Status: Acute Review of Systems Respiratory: + dyspnea on exertion, No cough, No sputum, No wheezing, No shortness of breath, No dyspnea at rest, No hemoptysis Cardiac: No chest pain, No orthopnea, No PND, No edema, No claudication, No palpitations Physical Exam Vital Signs Last Vital Signs Documentation Date Time Temp Pulse Resp B/P (MAP) Pulse Ox O2 Delivery O2 Flow Rate FiO2 12/01/17 06:04 89 114/74 12/01/17 05:16 25 12/01/17 04:11 36.5 12/01/17 04:11 98 12/01/17 00:00 Room Air 11/30/17 07:02 67.0 Physical Exam Constitutional: Level of Distress: NAD, chronically ill Psychiatric: Mental Status: active & alert Orientation: to time, to place, to person Head: normocephalic, atraumatic Neck: pertinent finding (Normal JVP) Lungs: Respiratory effort: no dyspnea Auscultation: breath sounds normal Cardiovascular: Heart Auscultation: no murmurs, no rubs, tachycardia (~100 bpm), irregular rate rhythm Abdomen: Bowel Sounds: normal Extremities: edema (Trivial), pertinent finding (Lymphedematous type changes) Neurologic: Cranial Nerves: grossly intact Assessment and Plan Assessment and Plan Asymptomatic chronic atrial fibrillation currently with a controlled ventricular response as described above. Off anticoagulation secondary to lower GI bleeding, colitis. RECOMMENDATIONS/PLAN: Metoprolol +/- digoxin for rate control. Dr. Vasques is covering the service over the weekend. Please call if any questions or concerns. Cardiology Attending Physician: Patient seen and examined at the bedside. Bleeding scan unclear. Gastroenterology considering EGD. Atrial fibrillation with borderline rate control noted on telemetry. Patient remains pale. Denies chest pain or palpitations. INR 1.0 today. Blood pressure stable. PE: General: No acute distress, chronically ill, pale. Heart: Irregular, tachycardic. Normal S1, normal S2. No murmur appreciated. Lungs: Clear bilateral, no rales, rhonchi, wheeze. Extremities: No edema. A/P: Agree with above PA-C history, physical exam, assessment and plan. Continue intravenous metoprolol for rate control at this time. Resume oral metoprolol when able per gastroenterology. Hold anticoagulation. No contraindication to EGD/colonoscopy from a cardiovascular perspective. Neel Mosley DO, [facility] Laboratory Results Last 24 Hours Test 11/30/17 12:27 11/30/17 15:59 11/30/17 17:22 11/30/17 20:56 White Blood Count 6.94 K/uL Red Blood Count 2.51 M/uL Hemoglobin 8.3 g/dL 11.2 g/dL Hematocrit 24.8 % 32.4 % Mean Corpuscular Volume 98.8 fL Mean Corpuscular Hemoglobin 33.1 pg Mean Corpuscular Hemoglobin Concent 33.5 g/dl RDW Standard Deviation 47.9 fL RDW Coefficient of Variation 13.3 % Platelet Count 207 K/uL Mean Platelet Volume 10.8 fL Lactic Acid Level 1.4 mmol/L Prothrombin Time 11.0 SECONDS Prothromb Time International Ratio 1.0 Test 12/01/17 04:56 White Blood Count 6.97 K/uL Red Blood Count 2.84 M/uL Hemoglobin 9.3 g/dL Hematocrit 26.9 % Mean Corpuscular Volume 94.7 fL Mean Corpuscular Hemoglobin 32.7 pg Mean Corpuscular Hemoglobin Concent 34.6 g/dl Platelet Count 117 K/uL Mean Platelet Volume 10.6 fL RDW Standard Deviation 49.6 fL RDW Coefficient of Variation 14.3 % Neutrophils % (Manual) 68.7 % Lymphocytes % (Manual) 7.8 % Monocytes % (Manual) 3.5 % Basophils % (Manual) 0.9 % Metamyelocytes % 10.4 % Myelocytes % 8.7 % Neutrophils # (Manual) 4.79 K/uL Total Absolute Neutrophils 4.79 K/uL Lymphocytes # (Manual) 0.54 K/uL Total Absolute Lymphocytes 0.54 K/uL Monocytes # (Manual) 0.24 K/uL Basophils # (Manual) 0.06 K/uL Metamyelocytes # 0.72 K/uL Myelocytes # 0.61 K/uL Toxic Vacuolation 2+ Echinocytes 1+ Prothrombin Time 10.5 SECONDS Prothromb Time International Ratio 1.0 Sodium Level 141 mmol/L Potassium Level 3.6 mmol/L Chloride Level 114 mmol/L Carbon Dioxide Level 21 mmol/L Anion Gap 6.0 mmol/L Blood Urea Nitrogen 14 mg/dl Creatinine 0.56 mg/dl Est Creatinine Clear Calc Drug Dose 88.1 ml/min Estimated GFR () 104.2 Estimated GFR (Non- 89.9 BUN/Creatinine Ratio 24.4 Random Glucose 104 mg/dl Calcium Level 6.9 mg/dl Total Bilirubin 0.6 mg/dl Aspartate Amino Transf (AST/SGOT) 15 U/L Alanine Aminotransferase (ALT/SGPT) 20 U/L Alkaline Phosphatase 51 U/L Total Protein 4.1 gm/dl Albumin 2.2 gm/dl Globulin 1.9 gm/dl Albumin/Globulin Ratio 1.2
[2017-12-01] MEDS: SODIUM CHLORIDE 0.9% 1000ML 1,000 ML IV SCH ×2 (10:39→14:55)
[2017-12-01] MEDS: MAGNESIUM OXIDE 400 MG TAB PO SCH ×2 (10:40→21:00)
[2017-12-01] MEDS: LIDOCAINE HCL 2% VISCOUS SOLN 60 ML, DiphenhydrAMINE HCL SYRUP 150 MG, ALUMINUM/MAGNESI... MT SCH ×16 (10:43→20:58)
--- NOTE | 2017-12-01 10:44 | Gastroenterology Progress Note ---
Progress Note Date of Service: Dec 01, 2017 Subjective Pt evaluation today including: conversation w/ patient, physical exam, chart review, lab review, review of inpatient medication list Pt noticed that stool incontinence and rectal bleeding had stopped since last night. This AM had small BM which RN reported as "old blood". She denies any abd pain, n/v. No plans for surgical intervention at this time. Review of Systems Constitutional: No fever, No chills Respiratory: No cough, No shortness of breath Cardiac: No chest pain Abdomen: + GI bleeding (improved), No pain, No nausea, No vomiting Skin: No rash, No itch Medications Current Inpatient Medications Medications (Trade) Dose Ordered Sig/Glenda Route Start Time Stop Time Status Last Admin Dose Admin Aspirin (Ecotrin Tab) 81 mg DAILY PO 11/28/17 09:00 12/28/17 08:59 Future Hold 11/29/17 07:30 81 MG Lidocaine HCl/ Diphenhydramine HCl/Al Hydroxide/ Mg Hydroxide/ Glycerin/Barcode QID MT 11/28/17 21:00 12/28/17 20:59 11/30/17 22:13 5 ML Ondansetron HCl (Zofran Inj) 4 mg Q6H PRN IV 11/29/17 09:00 12/29/17 08:59 Magnesium Oxide (Mag-Ox Tab) 400 mg BID PO 11/29/17 21:00 12/29/17 20:59 11/30/17 22:06 400 MG Ioversol (Optiray 320) 111 ml UD PRN IV 11/30/17 10:15 12/04/17 10:14 Metronidazole 500 mg/Prmx 100 ml @ 100 mls/hr Q8H IV 11/30/17 18:00 12/10/17 16:29 12/01/17 01:59 100 MLS/HR Cefepime HCl 1000 mg/Syringe 11 ml @ 5 mls/min Q8H IV 12/01/17 02:00 12/10/17 23:59 12/01/17 01:59 5 MLS/MIN Sodium Chloride 1,000 ml @ 100 mls/hr Q10H IV 11/30/17 17:00 12/30/17 16:59 11/30/17 17:00 100 MLS/HR Albumin Human (Albumin 5%) 12.5 gm Q6 IV 11/30/17 18:00 12/03/17 17:59 12/01/17 06:05 12.5 GM Metoprolol Tartrate (Lopressor Iv) 5 mg Q6 IV. 12/01/17 00:00 12/31/17 00:00 12/01/17 06:04 5 MG Pantoprazole Sodium 40 mg/ Syringe 10 ml @ 5 mls/min BID IV 12/01/17 21:00 12/31/17 20:59 Objective Vital Signs Date Time Temp Pulse Resp B/P (MAP) Pulse Ox O2 Delivery O2 Flow Rate FiO2 12/01/17 06:04 89 114/74 12/01/17 05:16 25 117/92 (100) 12/01/17 04:11 36.5 12/01/17 04:11 18 106/56 (73) 98 12/01/17 03:01 21 124/63 (83) 94 12/01/17 02:00 22 103/63 (76) 94 12/01/17 01:01 15 96/43 (60) 96 12/01/17 00:31 18 128/71 (90) 95 12/01/17 00:07 87 117/61 12/01/17 00:06 36.6 22 117/61 (79) 100 12/01/17 00:06 22 117/61 (79) 100 12/01/17 00:00 97 Room Air 11/30/17 23:30 20 100/60 (73) 97 11/30/17 23:00 22 103/64 (77) 98 11/30/17 20:00 Room Air 11/30/17 19:50 122 11/30/17 17:45 118 18 100/62 99 11/30/17 17:33 36.3 116 18 86/46 100 11/30/17 17:30 36.3 130 18 89/57 94 11/30/17 17:28 138 11/30/17 17:22 137 18 89/57 95 11/30/17 17:00 87 20 74/57 95 11/30/17 16:45 124 22 93/64 97 11/30/17 16:30 36.9 101 24 76/39 86 11/30/17 16:00 36.6 123 18 77/58 (64) 98 Room Air 8/9/18 11:05 36.5 104 19 106/69 (81) 98 Room Air Physical Exam General Appearance: WD/WN, no apparent distress Eyes: normal inspection, PERRL, EOMI Neck: supple, no JVD, trachea midline Respiratory/Chest: no respiratory distress, no accessory muscle use, + decreased breath sounds Cardiovascular: regular rate, rhythm, no gallop, no murmur Abdomen: normal bowel sounds, non tender, soft Extremities: normal inspection, no pedal edema, no calf tenderness Neurologic/Psych: alert, normal mood/affect, oriented x 3 Skin: normal color, no jaundice, no rash Laboratory Results Last 24 Hours Test 11/30/17 12:27 11/30/17 15:59 11/30/17 17:22 11/30/17 20:56 White Blood Count 6.94 K/uL Red Blood Count 2.51 M/uL Hemoglobin 8.3 g/dL 11.2 g/dL Hematocrit 24.8 % 32.4 % Mean Corpuscular Volume 98.8 fL Mean Corpuscular Hemoglobin 33.1 pg Mean Corpuscular Hemoglobin Concent 33.5 g/dl RDW Standard Deviation 47.9 fL RDW Coefficient of Variation 13.3 % Platelet Count 207 K/uL Mean Platelet Volume 10.8 fL Lactic Acid Level 1.4 mmol/L Prothrombin Time 11.0 SECONDS Prothromb Time International Ratio 1.0 Test 12/01/17 04:56 White Blood Count 6.97 K/uL Red Blood Count 2.84 M/uL Hemoglobin 9.3 g/dL Hematocrit 26.9 % Mean Corpuscular Volume 94.7 fL Mean Corpuscular Hemoglobin 32.7 pg Mean Corpuscular Hemoglobin Concent 34.6 g/dl Platelet Count 117 K/uL Mean Platelet Volume 10.6 fL RDW Standard Deviation 49.6 fL RDW Coefficient of Variation 14.3 % Neutrophils % (Manual) 68.7 % Lymphocytes % (Manual) 7.8 % Monocytes % (Manual) 3.5 % Basophils % (Manual) 0.9 % Metamyelocytes % 10.4 % Myelocytes % 8.7 % Neutrophils # (Manual) 4.79 K/uL Total Absolute Neutrophils 4.79 K/uL Lymphocytes # (Manual) 0.54 K/uL Total Absolute Lymphocytes 0.54 K/uL Monocytes # (Manual) 0.24 K/uL Basophils # (Manual) 0.06 K/uL Metamyelocytes # 0.72 K/uL Myelocytes # 0.61 K/uL Toxic Vacuolation 2+ Echinocytes 1+ Prothrombin Time 10.5 SECONDS Prothromb Time International Ratio 1.0 Sodium Level 141 mmol/L Potassium Level 3.6 mmol/L Chloride Level 114 mmol/L Carbon Dioxide Level 21 mmol/L Anion Gap 6.0 mmol/L Blood Urea Nitrogen 14 mg/dl Creatinine 0.56 mg/dl Est Creatinine Clear Calc Drug Dose 88.1 ml/min Estimated GFR () 104.2 Estimated GFR (Non- 89.9 BUN/Creatinine Ratio 24.4 Random Glucose 104 mg/dl Calcium Level 6.9 mg/dl Total Bilirubin 0.6 mg/dl Aspartate Amino Transf (AST/SGOT) 15 U/L Alanine Aminotransferase (ALT/SGPT) 20 U/L Alkaline Phosphatase 51 U/L Total Protein 4.1 gm/dl Albumin 2.2 gm/dl Globulin 1.9 gm/dl Albumin/Globulin Ratio 1.2 Assessment and Plan Patient is a 77 year old female hx of endometrial ca s/p surgery & XRT, chemo in 2014, recently started back on chemo last Monday. Since last chemo she started having n/v, diarrhea. Last night had tarry appearance of stool. Hgb dropped from 16 to 9 since 3 days ago. She was on Coumadin, INR around 2 on admission now 5.6. Infectious workup: Cdiff, stool cx, blood cx negative. 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 abd/pelvis w contrast showed diffuse colitis mostly on L side w somewhat sparing of transverse colon. Suspect changes related to intramural bleeding of colon. ? ischemic colitis. There are some pneumatosis, no free air. Images reviewed by Dr. Harvey and Radiologist (Drs. Pabon, Carroll). Pt transferred to ICU yesterday. Given K Centra and Vit K 10mg IV. INR down to 1. She received a total of 2U PRBC. Hgb went as high as 11 last night then down to 9 this AM. She noticed rectal and stool incontinence stopped as of last night, only had small amt of dark stools in the morning per RN report. Still w/o abd pain, n/v. Surgery following, no plans for procedures today. Plans - DC PPI gtt, change to Protonix 40mg IV BID. - Monitor H/H, transfuse prn. - Surgery following, appreciate recs. Diet advancement per Surgery. - No plans on endoscopic evaluation at this time. We will follow along. Attending attestation I have seen, examined this patient, and agree with the findings and above by our mid-level provider GAVINO Gutierrez -Minimal to little bleeding, remarkably improved after Kcentra. -Further care managed by surgery -Recall GI if any issues -Continue care for ischemic colitis with abx, supportive care
--- NOTE | 2017-12-01 11:25 | Critical Care Progress Note ---
Critical Care Progress Note Date of Service Dec 01, 2017. Attending Dr. Guan Subjective No events overnight, the patient received 2 units of blood transfusion, her hematocrit however dropped out slightly from 32-26, she was on IV hydration with total intake approximately 2 L, no bowel movement registered for the past 24 hours, the patient continued to be asymptomatic entirely, no dizziness, no abdominal pain, no nausea or vomiting, no diarrhea, no bowel movements. She did not have any chest pain or shortness of breath. The rest of her review of system was unremarkable. Her skin color has improved after transfusion. Objective Physical exam on 2017 revealed stable vital signs, rate controlled A. fib at 75 bpm, blood pressure 135/86, O2 sat 100% on room air, respiratory rate is 16, S1-S2 irregularly irregular, distant breath sounds bilaterally, abdomen completely soft and benign no rebound bowel sounds are positive. Trace edema in the periphery. Her laboratory showed hematocrit of 26 and platelets of 117. INR is 1. And BUN/creatinine slightly elevated. Assessment & Plan 1. 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 Her lactic acid was only 1.4 on admission to the ICU. 2. Endometrial carcinoma status post [place] based chemotherapy with 2 cycles most recent was 10 days ago. 3. Diarrhea with lower GI bleed, appeared to be stabilized at this point. 4. Anemia with a drop in her hematocrit and is concerning after blood transfusion, pending RBC scan. 5. A. fib with RVR, rate controlled, off Coumadin. 6. Coagulopathy, reversed with vitamin K and PCC. Plan: 1. We will continue to monitor hematocrit and hemoglobin throughout the day. 2. Bleeding scan today to evaluate for ongoing lower GI bleed. 3. If there is no evidence of bleeding, I will start the patient on clear liquid diet. 4. Appreciate Dr. Rock and Dr. gracia input. 5. Continue with Lopressor IV for rate control. 6. The patient was loaded with digoxin, I will hold off on further doses at this point. 7. Venodyne boots for DVT prophylaxis. 8. Once the patient is medically clear from surgical standpoint, she can be restarted on anticoagulation again. 9. Discontinue Lomotil. 10. I will check with Dr. gracia to change PPI to twice daily. 11. Octreotide was discontinued. 12. Continue antibiotic due to translocation of bacteria that can occur at higher rate with sloughing of the colonic mucosa. 13. Case discussed with the staff on rounds and details. 14. If the patient bleeding scan showed ongoing GI bleed, the patient would be transferred to a tertiary care center for interventional radiology and embolization. 15. Discussed with Dr. Rock from surgery, discussed with the staff and the patient herself, although she would favor to stay at [facility] [address] however, the findings on the bleeding scan will determine her disposition. Critical care time spent with the patient was 45 minutes. Data Medications: Current Inpatient Medications Medications (Trade) Dose Ordered Sig/Glenda Route Start Time Stop Time Status Last Admin Dose Admin Aspirin (Ecotrin Tab) 81 mg DAILY PO 11/28/17 09:00 12/28/17 08:59 Future Hold 11/29/17 07:30 81 MG Lidocaine HCl/ Diphenhydramine HCl/Al Hydroxide/ Mg Hydroxide/ Glycerin/Barcode QID MT 11/28/17 21:00 12/28/17 20:59 12/01/17 10:43 5 ML Ondansetron HCl (Zofran Inj) 4 mg Q6H PRN IV 11/29/17 09:00 12/29/17 08:59 Magnesium Oxide (Mag-Ox Tab) 400 mg BID PO 11/29/17 21:00 12/29/17 20:59 12/01/17 10:40 400 MG Ioversol (Optiray 320) 111 ml UD PRN IV 11/30/17 10:15 12/04/17 10:14 Metronidazole 500 mg/Prmx 100 ml @ 100 mls/hr Q8H IV 11/30/17 18:00 12/10/17 16:29 12/01/17 10:40 100 MLS/HR Cefepime HCl 1000 mg/Syringe 11 ml @ 5 mls/min Q8H IV 12/01/17 02:00 12/10/17 23:59 12/01/17 10:42 5 MLS/MIN Sodium Chloride 1,000 ml @ 100 mls/hr Q10H IV 11/30/17 17:00 12/30/17 16:59 12/01/17 10:39 100 MLS/HR Albumin Human (Albumin 5%) 12.5 gm Q6 IV 11/30/17 18:00 8/12/18 17:59 12/01/17 06:05 12.5 GM Metoprolol Tartrate (Lopressor Iv) 5 mg Q6 IV. 12/01/17 00:00 12/31/17 00:00 12/01/17 06:04 5 MG Pantoprazole Sodium 40 mg/ Syringe 10 ml @ 5 mls/min BID IV 12/01/17 21:00 12/31/17 20:59 Vital Signs: Date Time Temp Pulse Resp B/P (MAP) Pulse Ox O2 Delivery O2 Flow Rate FiO2 12/01/17 06:04 89 114/74 12/01/17 05:16 25 117/92 (100) 12/01/17 04:11 36.5 12/01/17 04:11 18 106/56 (73) 98 12/01/17 03:01 21 124/63 (83) 94 12/01/17 02:00 22 103/63 (76) 94 12/01/17 01:01 15 96/43 (60) 96 12/01/17 00:31 18 128/71 (90) 95 12/01/17 00:07 87 117/61 12/01/17 00:06 36.6 22 117/61 (79) 100 12/01/17 00:06 22 117/61 (79) 100 12/01/17 00:00 97 Room Air 11/30/17 23:30 20 100/60 (73) 97 11/30/17 23:00 22 103/64 (77) 98 11/30/17 20:00 Room Air 11/30/17 19:50 122 11/30/17 17:45 118 18 100/62 99 11/30/17 17:33 36.3 116 18 86/46 100 11/30/17 17:30 36.3 130 18 89/57 94 11/30/17 17:28 138 11/30/17 17:22 137 18 89/57 95 11/30/17 17:00 87 20 74/57 95 11/30/17 16:45 124 22 93/64 97 11/30/17 16:30 36.9 101 24 76/39 86 11/30/17 16:00 36.6 123 18 77/58 (64) 98 Room Air Laboratory Results: Last 24 Hours Test 11/30/17 12:27 11/30/17 15:59 11/30/17 17:22 11/30/17 20:56 White Blood Count 6.94 K/uL Red Blood Count 2.51 M/uL Hemoglobin 8.3 g/dL 11.2 g/dL Hematocrit 24.8 % 32.4 % Mean Corpuscular Volume 98.8 fL Mean Corpuscular Hemoglobin 33.1 pg Mean Corpuscular Hemoglobin Concent 33.5 g/dl RDW Standard Deviation 47.9 fL RDW Coefficient of Variation 13.3 % Platelet Count 207 K/uL Mean Platelet Volume 10.8 fL Lactic Acid Level 1.4 mmol/L Prothrombin Time 11.0 SECONDS Prothromb Time International Ratio 1.0 Test 12/01/17 04:56 White Blood Count 6.97 K/uL Red Blood Count 2.84 M/uL Hemoglobin 9.3 g/dL Hematocrit 26.9 % Mean Corpuscular Volume 94.7 fL Mean Corpuscular Hemoglobin 32.7 pg Mean Corpuscular Hemoglobin Concent 34.6 g/dl Platelet Count 117 K/uL Mean Platelet Volume 10.6 fL RDW Standard Deviation 49.6 fL RDW Coefficient of Variation 14.3 % Neutrophils % (Manual) 68.7 % Lymphocytes % (Manual) 7.8 % Monocytes % (Manual) 3.5 % Basophils % (Manual) 0.9 % Metamyelocytes % 10.4 % Myelocytes % 8.7 % Neutrophils # (Manual) 4.79 K/uL Total Absolute Neutrophils 4.79 K/uL Lymphocytes # (Manual) 0.54 K/uL Total Absolute Lymphocytes 0.54 K/uL Monocytes # (Manual) 0.24 K/uL Basophils # (Manual) 0.06 K/uL Metamyelocytes # 0.72 K/uL Myelocytes # 0.61 K/uL Toxic Vacuolation 2+ Echinocytes 1+ Prothrombin Time 10.5 SECONDS Prothromb Time International Ratio 1.0 Sodium Level 141 mmol/L Potassium Level 3.6 mmol/L Chloride Level 114 mmol/L Carbon Dioxide Level 21 mmol/L Anion Gap 6.0 mmol/L Blood Urea Nitrogen 14 mg/dl Creatinine 0.56 mg/dl Est Creatinine Clear Calc Drug Dose 88.1 ml/min Estimated GFR () 104.2 Estimated GFR (Non- 89.9 BUN/Creatinine Ratio 24.4 Random Glucose 104 mg/dl Calcium Level 6.9 mg/dl Total Bilirubin 0.6 mg/dl Aspartate Amino Transf (AST/SGOT) 15 U/L Alanine Aminotransferase (ALT/SGPT) 20 U/L Alkaline Phosphatase 51 U/L Total Protein 4.1 gm/dl Albumin 2.2 gm/dl Globulin 1.9 gm/dl Albumin/Globulin Ratio 1.2
--- NOTE | 2017-12-01 14:58 | DIAGNOSTIC IMAGING REPORT ---
GI BLEEDING SCAN CLINICAL HISTORY: lower gi bleeding bleeding TECHNIQUE: Dynamic imaging: The administration of 0.5 cc blood products and 27 mCi technetium 99 M ultra tagged COMPARISON STUDY: CT abdomen and pelvis 11/30/2017 FINDINGS: Increased activity is noted within the stomach. A low-grade gastritis is impossible to exclude. Delayed images demonstrate low-level foci of increased activity involving the duodenal sweep as well as hepatic flexure of the colon. A major amount of blood traversing the more distal aspects of the bowel is not seen. There is unremarkable activity within the bladder. IMPRESSION: 1. A low-grade bleeding foci within the hepatic flexure of the colon and second portion of the duodenal sweep. 2. Increased gastric activity suggesting a component of gastritis. The above report was generated using voice recognition software. It may contain grammatical, syntax or spelling errors. Electronically signed by: Bandar Bose M.D. 12/01/2017 2:57 PM Dictated Date/Time: 12/01/2017 2:54 PM
[2017-12-01] MEDS ORDERED: LIDOCAINE HCL 2% 2 ML VIAL (20MG/ML) ONE (15:30)
[2017-12-01] MEDS ORDERED: PANTOprazole INJ 40 MG in DEXTROSE 5% 100ML IV SCH (15:30)
[2017-12-01] MEDS ORDERED: PROPOFOL IV EMULSION 10 MG/ML 20 ML VIAL ONE (15:30)
--- NOTE | 2017-12-01 16:13 | GI REPORT ---
Patient Name: Colleen Harris Procedure Date: 12/01/2017 3:47 PM Date of : 1940 Admit Type: Inpatient Age: 77 Gender: Female Attending MD: Suraj Harvey MD Procedure: Upper GI endoscopy Providers: Suraj Harvey MD Referring MD: Ron Weiner M.d. Indications: Hematochezia, Positive Bleeding Scan Medicines: Monitored Anesthesia Care Complications: No immediate complications. Estimated Blood Loss: Estimated blood loss: none. Procedure: Pre-Anesthesia Assessment: - Pre-Anesthesia Assessment: - Prior to the procedure, a History and Physical was performed, and patient medications, allergies and sensitivities were reviewed. The patient's tolerance of previous anesthesia was reviewed. Please see [employer] for complete details. - The risks and benefits of the procedure and the sedation options and risks were discussed with the patient. All questions were answered and informed consent was obtained. - Patient identification and proposed procedure were verified prior to the procedure by the physician and the nurse. The procedure was verified in the pre-procedure area in the procedure room. After obtaining informed consent, the endoscope was passed carefully and meticuously under direct vision and only advanced when the lumen was clearly identified, C02 insuflation was utilized throughout the entirity of the procedure. Throughout the procedure, the patient's blood pressure, pulse, and oxygen saturations were monitored continuously. After obtaining informed consent, the endoscope was passed under direct vision. Throughout the procedure, the patient's blood pressure, pulse, and oxygen saturations were monitored continuously. The Scope was introduced through the mouth, and advanced to the third part of duodenum. The upper GI endoscopy was accomplished without difficulty. The patient tolerated the procedure well. Findings: The examined esophagus was normal. The entire examined stomach was normal. Patchy moderate mucosal changes characterized by broad superficial ulcerations were found in the duodenal bulb and in the second portion of the duodenum. Shallow based with no vessels. Concerning for ischemic or medication induced enteropathy. No active bleeding. Impression: - Normal esophagus. - Normal stomach. - Mucosal changes in the duodenum with shallow ulcers - No specimens collected. Recommendation: - Return patient to [facility] for ongoing care. - Concern for an enteropathy vs ischemic areas. No role for endoscopic therapy. Given Pneumatosis, and likely ischemic colon, do not feel comfortable with lower endoscopy given risk of perforation. - Supportive care if worsens consider transfer to tertiary center. Suraj Harvey MD 12/01/2017 4:13:25 PM This report has been signed electronically. Note Initiated On: 12/01/2017 3:47 PM Number of Addenda: 0 I attest to the content of the Intraoperative Record and orders documented therein, exceptions below {[id number]}
--- NOTE | 2017-12-01 16:14 | Anesthesiology Progress Note ---
Anesthesia Post Op Note Date & Time Dec 01, 2017 at 16:14 Vital Signs Pain Intensity: 0.0 Vital Signs Past 12 Hours Date Time Temp Pulse Resp B/P (MAP) Pulse Ox O2 Delivery O2 Flow Rate FiO2 12/01/17 15:42 36.6 88 18 184/90 (121) 98 Room Air 12/01/17 15:12 105 29 177/95 (122) 99 Room Air 12/01/17 15:00 90 19 150/125 (133) 99 Room Air 12/01/17 12:06 97 129/63 12/01/17 11:00 89 26 135/86 (102) 97 Room Air 12/01/17 10:00 109 31 138/84 (102) 12/01/17 09:00 94 25 115/82 (93) 12/01/17 08:00 Room Air 12/01/17 08:00 36.5 97 16 131/54 (79) 97 Room Air 12/01/17 06:04 89 114/74 12/01/17 05:16 25 117/92 (100) Notes Mental Status: alert / awake / arousable, participated in evaluation Pt Amnestic to Procedure: Yes Nausea / Vomiting: adequately controlled Pain: adequately controlled Airway Patency, RR, SpO2: stable & adequate BP & HR: stable & adequate Hydration State: stable & adequate Anesthetic Complications: no major complications apparent
[2017-12-01 18:13] LABS: HEMATOCRIT 28.4 % (37-47); HEMOGLOBIN 9.8 g/dL (12.0-16.0)
--- NOTE | 2017-12-01 18:58 | Progress Note ---
Progress Note Date of Service Dec 01, 2017. Progress Note Subjective: Patient remains in the ICU. S/p upper endoscopy. Patient denies chest pain or shortness of breath. There is food at bedside that she is attempting to eat. 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 - now off IV pantoprazole and IV octreotide -no surgical interventions at this time -remains in the ICU Chronic Afib with RVR HR on admission was in the 130's had not been taking her metoprolol due to nausea/fatigue ECHO * The rhythm is atrial fibrillation. * Ejection Fraction = 60-65%. * The left atrium is severely dilated. * There is mild tricuspid regurgitation. * Aortic valve sclerosis mild, without significant aortic valvular stenosis. * There is mild mitral regurgitation. -Rate controlled after being off Cardiazem drip and currently on metoprolol -currently off anticoagulation monitor electrolytes for hypokalemia or hypomagnesemia and replete as needed Endometrial Carcinoma patient was evaluated by hematology/oncology as inpatient consultation and will need to follow up as outpatient and re-evaluate future chemotherapy plans while minimizing side effects Neutropenia resolving initial neutropenia likely from chemotherapy DVT ppx: SCDs Full Code
[2017-12-01] MEDS: PANTOprazole INJ 40 MG in SYRINGE 0 ML IV SCH (20:57)
[2017-12-01] MEDS ORDERED: PANTOprazole INJ 40 MG in SYRINGE 0 ML IV SCH (21:00)
[2017-12-01 23:14] LABS: HEMATOCRIT 26.6 % (37-47); HEMOGLOBIN 9.3 g/dL (12.0-16.0)
[2017-12-02] VITALS (22 sets, daily range): BP systolic 95–148; BP diastolic 45–109; PULSE 72–118; TEMP 36.7–37; O2SAT 90–100
[2017-12-02] MEDS: CEFEPIME IV 1,000 MG in SYRINGE 0 ML IV SCH ×2 (01:01→08:41)
[2017-12-02] MEDS: METRONIDAZOLE / NSS 500 MG in PREMIXED NSS 100 ML IV SCH ×2 (01:01→08:40)
[2017-12-02] MEDS: METOPROLOL TARTRATE 1 MG/ML VIAL IV. SCH ×4 (01:02→18:17)
[2017-12-02 05:08] LABS: HEMATOCRIT 26.2 % (37-47); HEMOGLOBIN 9.2 g/dL (12.0-16.0); MEAN CELL VOLUME 93.6 fL (80-100); MEAN CORPUSCULAR HEMOGLOBIN 32.9 pg (25-34); MEAN CORPUSCULAR HGB CONC 35.1 g/dl (32-36); MEAN PLATELET VOLUME 10.9 fL (7.4-10.4); PLATELET COUNT 124 K/uL (130-400); RED CELL DISTRIBUTION WIDTH CV 14.5 % (11.5-14.5); RED CELL DISTRIBUTION WIDTH SD 49.9 fL (36.4-46.3); WHITE BLOOD COUNT 7.33 K/uL (4.8-10.8)
[2017-12-02 05:37] LABS: CALCIUM 7.5 mg/dl (8.5-10.1); CREATININE 0.56 mg/dl (0.60-1.20); POTASSIUM 3.3 mmol/L (3.5-5.1)
[2017-12-02] MEDS: MAGNESIUM OXIDE 400 MG TAB PO SCH ×3 (08:40→21:10)
[2017-12-02] MEDS: LIDOCAINE HCL 2% VISCOUS SOLN 60 ML, DiphenhydrAMINE HCL SYRUP 150 MG, ALUMINUM/MAGNESI... MT SCH ×16 (08:40→21:11)
[2017-12-02] MEDS: PANTOprazole INJ 40 MG in SYRINGE 0 ML IV SCH ×2 (08:40→21:10)
--- NOTE | 2017-12-02 08:44 | Surgery Progress Note ---
Surgery Progress Note Date of Service Dec 02, 2017. Subjective + feeling well F/U colitis with GI bleeding, pt is doing better, only one small amount bloody stool last night, pt denies abdominal pain, no nausea, no vomiting, H/H stable Objective Vital Signs: Date Time Temp Pulse Resp B/P (MAP) Pulse Ox O2 Delivery O2 Flow Rate FiO2 12/02/17 06:24 91 111/71 12/02/17 06:00 76 17 111/71 (84) 95 12/02/17 05:01 74 14 117/70 (86) 98 12/02/17 03:01 73 17 113/60 (77) 98 Room Air 12/02/17 02:01 37.0 74 15 115/68 (84) 97 12/02/17 01:02 78 109/63 12/02/17 01:01 72 18 109/63 (78) 100 12/02/17 00:01 81 18 142/64 (90) 97 12/01/17 23:00 91 18 126/70 (88) 99 Room Air 12/01/17 22:01 36.7 90 25 101/64 (76) 92 Room Air 12/01/17 21:01 85 18 126/79 (95) 100 Room Air 12/01/17 20:00 Room Air 12/01/17 19:01 84 21 135/87 (103) 99 Room Air 12/01/17 18:00 95 15 164/107 (126) 100 12/01/17 17:41 96 164/83 12/01/17 17:30 96 20 164/83 (110) 99 12/01/17 17:00 36.6 108 20 169/99 (122) 100 12/01/17 17:00 Room Air 12/01/17 16:35 87 18 150/89 (109) 99 Room Air 12/01/17 16:20 93 18 123/94 (104) 96 Room Air 12/01/17 16:04 87 18 91/57 (68) 91 Room Air 12/01/17 15:42 36.6 88 18 184/90 (121) 98 Room Air 12/01/17 15:12 105 29 177/95 (122) 99 Room Air 12/01/17 15:00 90 19 150/125 (133) 99 Room Air 12/01/17 12:06 97 129/63 12/01/17 11:00 89 26 135/86 (102) 97 Room Air 12/01/17 10:00 109 31 138/84 (102) 12/01/17 09:00 94 25 115/82 (93) General Appearance: WD/WN, no apparent distress Head: normocephalic Neck: supple Respiratory/Chest: chest non-tender, lungs clear Cardiovascular: regular rate, rhythm, no edema, no gallop, no JVD Abdomen: normal bowel sounds, non tender, non distended, soft Extremities: normal range of motion, non-tender, normal inspection Laboratory Results: Results Past 24 Hours Test 12/01/17 17:57 12/01/17 23:04 12/02/17 04:34 Range/Units Hemoglobin 9.8 9.3 9.2 12.0-16.0 g/dL Hematocrit 28.4 26.6 26.2 37-47 % White Blood Count 7.33 4.8-10.8 K/uL Red Blood Count 2.80 4.2-5.4 M/uL Mean Corpuscular Volume 93.6 80-100 fL Mean Corpuscular Hemoglobin 32.9 25-34 pg Mean Corpuscular Hemoglobin Concent 35.1 32-36 g/dl Platelet Count 124 130-400 K/uL Mean Platelet Volume 10.9 7.4-10.4 fL RDW Standard Deviation 49.9 36.4-46.3 fL RDW Coefficient of Variation 14.5 11.5-14.5 % Neutrophils % (Manual) 66.0 % Lymphocytes % (Manual) 15.7 % Monocytes % (Manual) 5.2 % Basophils % (Manual) 0.9 % Metamyelocytes % 2.6 % Myelocytes % 9.6 % Neutrophils # (Manual) 4.84 1.4-6.5 K/uL Total Absolute Neutrophils 4.84 1.4-6.5 K/uL Lymphocytes # (Manual) 1.15 1.2-3.4 K/uL Total Absolute Lymphocytes 1.15 1.2-3.4 K/uL Monocytes # (Manual) 0.38 0.11-0.59 K/uL Basophils # (Manual) 0.07 0-0.2 K/uL Metamyelocytes # 0.19 0-0 K/uL Myelocytes # 0.70 0-0 K/uL Toxic Granulation 2+ Echinocytes 1+ Prothrombin Time 10.9 9.0-12.0 SECONDS Prothromb Time International Ratio 1.0 0.9-1.1 Sodium Level 140 136-145 mmol/L Potassium Level 3.3 3.5-5.1 mmol/L Chloride Level 110 98-107 mmol/L Carbon Dioxide Level 23 21-32 mmol/L Anion Gap 7.0 3-11 mmol/L Blood Urea Nitrogen 7 7-18 mg/dl Creatinine 0.56 0.60-1.20 mg/dl Est Creatinine Clear Calc Drug Dose 90.5 ml/min Estimated GFR () 104.2 Estimated GFR (Non- 89.9 BUN/Creatinine Ratio 12.8 10-20 Random Glucose 84 70-99 mg/dl Calcium Level 7.5 8.5-10.1 mg/dl Magnesium Level 1.5 1.8-2.4 mg/dl Assessment & Plan doing better, H/H stable continue treatment, will F/U
[2017-12-02] MEDS ORDERED: POTASSIUM CHLORIDE 20 MEQ TABCR PO ONE (09:00)
[2017-12-02] MEDS ORDERED: NURSING VERBAL MED ORDER ONE (09:30)
[2017-12-02] MEDS ORDERED: POTASSIUM CHLORIDE 20 MEQ/15 ML UDC PO ONE (09:45)
--- NOTE | 2017-12-02 10:47 | Gastroenterology Progress Note ---
Progress Note Date of Service: Dec 02, 2017 Subjective Pt evaluation today including: conversation w/ patient, conversation w/ validation consultant Patient has done well overnight, to alban stools but hemodynamically has remained stable. No abdominal pain. Medications Current Inpatient Medications Medications (Trade) Dose Ordered Sig/Glenda Route Start Time Stop Time Status Last Admin Dose Admin Aspirin (Ecotrin Tab) 81 mg DAILY PO 11/28/17 09:00 12/28/17 08:59 Future Hold 11/29/17 07:30 81 MG Lidocaine HCl/ Diphenhydramine HCl/Al Hydroxide/ Mg Hydroxide/ Glycerin/Barcode QID MT 11/28/17 21:00 12/28/17 20:59 12/02/17 08:40 5 ML Ondansetron HCl (Zofran Inj) 4 mg Q6H PRN IV 11/29/17 09:00 12/29/17 08:59 Ioversol (Optiray 320) 111 ml UD PRN IV 11/30/17 10:15 12/04/17 10:14 Metoprolol Tartrate (Lopressor Iv) 5 mg Q6 IV. 12/01/17 00:00 12/31/17 00:00 12/02/17 06:24 5 MG Pantoprazole Sodium 40 mg/ Syringe 10 ml @ 5 mls/min DAILY@ IV 12/01/17 21:00 12/31/17 20:59 12/02/17 08:40 5 MLS/MIN Magnesium Oxide (Mag-Ox Tab) 800 mg BID PO 12/02/17 09:00 01/01/18 08:59 12/02/17 10:16 400 MG Objective Vital Signs Date Time Temp Pulse Resp B/P (MAP) Pulse Ox O2 Delivery O2 Flow Rate FiO2 12/02/17 10:01 89 24 148/87 (107) 94 Room Air 12/02/17 09:01 84 19 146/78 (100) 98 Room Air 12/02/17 08:51 36.7 89 20 140/81 (100) 98 Room Air 12/02/17 06:24 91 111/71 12/02/17 06:00 76 17 111/71 (84) 95 12/02/17 05:01 74 14 117/70 (86) 98 12/02/17 03:01 73 17 113/60 (77) 98 Room Air 12/02/17 02:01 37.0 74 15 115/68 (84) 97 12/02/17 01:02 78 109/63 12/02/17 01:01 72 18 109/63 (78) 100 12/02/17 00:01 81 18 142/64 (90) 97 12/01/17 23:00 91 18 126/70 (88) 99 Room Air 12/01/17 22:01 36.7 90 25 101/64 (76) 92 Room Air 12/01/17 21:01 85 18 126/79 (95) 100 Room Air 12/01/17 20:00 Room Air 12/01/17 19:01 84 21 135/87 (103) 99 Room Air 12/01/17 18:00 95 15 164/107 (126) 100 12/01/17 17:41 96 164/83 12/01/17 17:30 96 20 164/83 (110) 99 12/01/17 17:00 36.6 108 20 169/99 (122) 100 12/01/17 17:00 Room Air 12/01/17 16:35 87 18 150/89 (109) 99 Room Air 12/01/17 16:20 93 18 123/94 (104) 96 Room Air 12/01/17 16:04 87 18 91/57 (68) 91 Room Air 12/01/17 15:42 36.6 88 18 184/90 (121) 98 Room Air 12/01/17 15:12 105 29 177/95 (122) 99 Room Air 12/01/17 15:00 90 19 150/125 (133) 99 Room Air 12/01/17 12:06 97 129/63 12/01/17 11:00 89 26 135/86 (102) 97 Room Air Physical Exam General Appearance: WD/WN, + pertinent finding (Pale) Respiratory/Chest: chest non-tender, lungs clear Cardiovascular: regular rate, rhythm, no edema Abdomen: normal bowel sounds, non tender Extremities: normal range of motion Neurologic/Psych: feed research aide II-XII nml as tested Laboratory Results Last 24 Hours Test 12/01/17 17:57 12/01/17 23:04 12/02/17 04:34 Hemoglobin 9.8 g/dL 9.3 g/dL 9.2 g/dL Hematocrit 28.4 % 26.6 % 26.2 % White Blood Count 7.33 K/uL Red Blood Count 2.80 M/uL Mean Corpuscular Volume 93.6 fL Mean Corpuscular Hemoglobin 32.9 pg Mean Corpuscular Hemoglobin Concent 35.1 g/dl Platelet Count 124 K/uL Mean Platelet Volume 10.9 fL RDW Standard Deviation 49.9 fL RDW Coefficient of Variation 14.5 % Neutrophils % (Manual) 66.0 % Lymphocytes % (Manual) 15.7 % Monocytes % (Manual) 5.2 % Basophils % (Manual) 0.9 % Metamyelocytes % 2.6 % Myelocytes % 9.6 % Neutrophils # (Manual) 4.84 K/uL Total Absolute Neutrophils 4.84 K/uL Lymphocytes # (Manual) 1.15 K/uL Total Absolute Lymphocytes 1.15 K/uL Monocytes # (Manual) 0.38 K/uL Basophils # (Manual) 0.07 K/uL Metamyelocytes # 0.19 K/uL Myelocytes # 0.70 K/uL Toxic Granulation 2+ Echinocytes 1+ Prothrombin Time 10.9 SECONDS Prothromb Time International Ratio 1.0 Sodium Level 140 mmol/L Potassium Level 3.3 mmol/L Chloride Level 110 mmol/L Carbon Dioxide Level 23 mmol/L Anion Gap 7.0 mmol/L Blood Urea Nitrogen 7 mg/dl Creatinine 0.56 mg/dl Est Creatinine Clear Calc Drug Dose 90.5 ml/min Estimated GFR () 104.2 Estimated GFR (Non- 89.9 BUN/Creatinine Ratio 12.8 Random Glucose 84 mg/dl Calcium Level 7.5 mg/dl Magnesium Level 1.5 mg/dl Assessment and Plan Patient is a 77 year old female hx of endometrial ca s/p surgery & XRT, chemo in 2014, recently started back on chemo last Monday. Since last chemo she started having n/v, diarrhea. With development of hematochezia and subsequent Hgb dropped from 16 to 9 since 3 days ago. She was on Coumadin, INR around 2 on admission that increased to 5.6 prompting reversal with K Centra. Infectious workup: Cdiff, stool cx, blood cx negative. 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 abd/pelvis w contrast showed diffuse colitis mostly on L side w somewhat sparing of transverse colon. Suspect changes related to intramural bleeding of colon. ? ischemic colitis. There are some pneumatosis, no free air. Images reviewed by Dr. Harvey and Radiologist (Drs. Pabon, Carroll). Pt transferred to ICU yesterday. Given K Centra and Vit K 10mg IV. INR down to 1. She received a total of 2U PRBC. Hgb went as high as 11 last night then down to 9 this AM. She noticed rectal and stool incontinence stopped as of last night, only had small amt of dark stools in the morning per RN report. Still w/o abd pain, n/v. Surgery following, no plans for procedures today. Plans -She underwent EGD yesterday after the bleeding scan results suggested possible bleeding in the duodenum as well as in the colon. The EGD revealed serpiginous shallow ulcers throughout the duodenum, no active bleeding. She remained hemodynamically stable with good blood counts. I presume that she would also have lesions throughout her distal small bowel or colon with pneumatosis and hemorrhage also brings the possibility that she could have a second issue going on which would be ischemia. 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 Continue supportive care, I am not sure of anything in the way of endoscopic intervention that would be of any utility, ICU is considering transfer given her complexity of her case. Family is discussing that now. Continue IV PPI drip, as well as, titers for CMV and initiation of CMV treatment.
--- NOTE | 2017-12-02 11:03 | Critical Care Progress Note ---
Critical Care Progress Note Date of Service Dec 02, 2017. Attending Dr. Freida Teixeira The patient continued to have maroon blood per rectum, although she denies any pain, she does not feel dizzy, the patient denies any pain even from the beginning. No nausea or vomiting reported. No weakness. No new syncopal episode. Her vital signs remained stable and her A. fib is well controlled. She remains off anticoagulation. Objective Physical exam on 2017 revealed stable vital signs, rate controlled A. fib at 75 bpm, blood pressure 135/86, O2 sat 100% on room air, respiratory rate is 16, S1-S2 irregularly irregular, distant breath sounds bilaterally, abdomen completely soft and benign no rebound bowel sounds are positive. Trace edema in the periphery. Her laboratory showed hematocrit of 26 and platelets of 117. INR is 1. And BUN/creatinine slightly elevated. Physical exam on 12/02/2017 showed S1-S2, A. fib, clear lung hernandez, abdomen is soft and benign, no edema, continue to have pallor. Overall chronically ill- appearing. Hematocrit is 26 which has been stable for the past 2 readings. Platelets is mildly low but stable. RBC scan showed extravasation at the hepatic flexure, and gastric fundus. EGD was done yesterday by Dr. gracia, appreciate his input, showing shallow nonbleeding duodenal ulcers. Assessment & Plan 1. 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 Her lactic acid was only 1.4 on admission to the ICU. 2. Endometrial carcinoma status post crow based chemotherapy with 2 cycles most recent was 10 days ago. 3. Hematochezia continued. The patient hemodynamically stable. 4. A. fib, not anticoagulated due to GI bleeding, rate controlled. 5. Coagulopathy, corrected with INR of 1. Plan: 1. We will continue to monitor hematocrit and hemoglobin throughout the day. 2. Discussed with Dr. gracia from GI, the patient still at risk for bleeding, the patient is not a good candidate for colonoscopy for further visualization due to fragility of the colon. Risk of perforation is high. Appreciate their input. 3. The patient continued to show evidence of lower GI bleeding, although retained blood in the lumen can be the cause, cannot exclude ongoing bleeding given the findings on the RBC scan. 4. Discussed with Dr. Cavanaugh and the consults, appreciate all inputs, the patient would benefit from transfer to a tertiary care center, if the patient would require interventional radiology for embolization due to lower GI bleed. 5. Continue with Lopressor IV for rate control A. fib. 6. The patient is off digoxin. 7. Venodyne boots for DVT prophylaxis. 8. Obviously will continue to hold anticoagulation. 9. Discontinue Lomotil. 10. Remains on clear liquid diet. 11. I do not have any evidence of ischemic bowel at this point. Given the benign abdominal exam and normal lactic acid, I will stop also the antibiotics to avoid adding C. difficile colitis to her GI illness. 12 I will replace Her potassium. 13. I will replace her magnesium. 14. Continue PPI twice daily. 15. Initiate transfer to [facility]. Appreciate Dr. Cavanaugh assistance in that regard. The patient is being accepted pending bed availability. The patient is in agreement with the plan. Discussed with the staff on rounds and details. Critical care time spent with the patient was 45 minutes. Data Medications: Current Inpatient Medications Medications (Trade) Dose Ordered Sig/Glenda Route Start Time Stop Time Status Last Admin Dose Admin Aspirin (Ecotrin Tab) 81 mg DAILY PO 11/28/17 09:00 12/28/17 08:59 Future Hold 11/29/17 07:30 81 MG Lidocaine HCl/ Diphenhydramine HCl/Al Hydroxide/ Mg Hydroxide/ Glycerin/Barcode QID MT 11/28/17 21:00 12/28/17 20:59 12/02/17 08:40 5 ML Ondansetron HCl (Zofran Inj) 4 mg Q6H PRN IV 11/29/17 09:00 12/29/17 08:59 Ioversol (Optiray 320) 111 ml UD PRN IV 11/30/17 10:15 12/04/17 10:14 Metoprolol Tartrate (Lopressor Iv) 5 mg Q6 IV. 12/01/17 00:00 12/31/17 00:00 12/02/17 06:24 5 MG Pantoprazole Sodium 40 mg/ Syringe 10 ml @ 5 mls/min DAILY@ IV 12/01/17 21:00 12/31/17 20:59 12/02/17 08:40 5 MLS/MIN Magnesium Oxide (Mag-Ox Tab) 800 mg BID PO 12/02/17 09:00 9/10/18 08:59 12/02/17 10:16 400 MG Vital Signs: Date Time Temp Pulse Resp B/P (MAP) Pulse Ox O2 Delivery O2 Flow Rate FiO2 12/02/17 10:01 89 24 148/87 (107) 94 Room Air 12/02/17 09:01 84 19 146/78 (100) 98 Room Air 12/02/17 08:51 36.7 89 20 140/81 (100) 98 Room Air 12/02/17 06:24 91 111/71 12/02/17 06:00 76 17 111/71 (84) 95 12/02/17 05:01 74 14 117/70 (86) 98 12/02/17 03:01 73 17 113/60 (77) 98 Room Air 12/02/17 02:01 37.0 74 15 115/68 (84) 97 12/02/17 01:02 78 109/63 12/02/17 01:01 72 18 109/63 (78) 100 12/02/17 00:01 81 18 142/64 (90) 97 12/01/17 23:00 91 18 126/70 (88) 99 Room Air 12/01/17 22:01 36.7 90 25 101/64 (76) 92 Room Air 12/01/17 21:01 85 18 126/79 (95) 100 Room Air 12/01/17 20:00 Room Air 12/01/17 19:01 84 21 135/87 (103) 99 Room Air 12/01/17 18:00 95 15 164/107 (126) 100 12/01/17 17:41 96 164/83 12/01/17 17:30 96 20 164/83 (110) 99 12/01/17 17:00 36.6 108 20 169/99 (122) 100 12/01/17 17:00 Room Air 12/01/17 16:35 87 18 150/89 (109) 99 Room Air 12/01/17 16:20 93 18 123/94 (104) 96 Room Air 12/01/17 16:04 87 18 91/57 (68) 91 Room Air 12/01/17 15:42 36.6 88 18 184/90 (121) 98 Room Air 12/01/17 15:12 105 29 177/95 (122) 99 Room Air 12/01/17 15:00 90 19 150/125 (133) 99 Room Air 12/01/17 12:06 97 129/63 12/01/17 11:00 89 26 135/86 (102) 97 Room Air Laboratory Results: Last 24 Hours Test 12/01/17 17:57 12/01/17 23:04 12/02/17 04:34 Hemoglobin 9.8 g/dL 9.3 g/dL 9.2 g/dL Hematocrit 28.4 % 26.6 % 26.2 % White Blood Count 7.33 K/uL Red Blood Count 2.80 M/uL Mean Corpuscular Volume 93.6 fL Mean Corpuscular Hemoglobin 32.9 pg Mean Corpuscular Hemoglobin Concent 35.1 g/dl Platelet Count 124 K/uL Mean Platelet Volume 10.9 fL RDW Standard Deviation 49.9 fL RDW Coefficient of Variation 14.5 % Neutrophils % (Manual) 66.0 % Lymphocytes % (Manual) 15.7 % Monocytes % (Manual) 5.2 % Basophils % (Manual) 0.9 % Metamyelocytes % 2.6 % Myelocytes % 9.6 % Neutrophils # (Manual) 4.84 K/uL Total Absolute Neutrophils 4.84 K/uL Lymphocytes # (Manual) 1.15 K/uL Total Absolute Lymphocytes 1.15 K/uL Monocytes # (Manual) 0.38 K/uL Basophils # (Manual) 0.07 K/uL Metamyelocytes # 0.19 K/uL Myelocytes # 0.70 K/uL Toxic Granulation 2+ Echinocytes 1+ Prothrombin Time 10.9 SECONDS Prothromb Time International Ratio 1.0 Sodium Level 140 mmol/L Potassium Level 3.3 mmol/L Chloride Level 110 mmol/L Carbon Dioxide Level 23 mmol/L Anion Gap 7.0 mmol/L Blood Urea Nitrogen 7 mg/dl Creatinine 0.56 mg/dl Est Creatinine Clear Calc Drug Dose 90.5 ml/min Estimated GFR () 104.2 Estimated GFR (Non- 89.9 BUN/Creatinine Ratio 12.8 Random Glucose 84 mg/dl Calcium Level 7.5 mg/dl Magnesium Level 1.5 mg/dl
--- NOTE | 2017-12-02 12:27 | Progress Note ---
Internal Med Progress Note Date of Service: Dec 02, 2017. Provider Documentation: Subjective: Patient remains in the ICU. Patient denies chest pain or shortness of breath. Continues to have maroon colored stools. Patient agreed to transfer to [facility] in [place] for further management Physical exam General- No acute distress Head- atraumatic Eyes- EOMI ENT- oropharynx clear Neck- supple, no JVD Lungs- clear to auscultation Heart- irregular rhythm; rate controlled Abdomen- normal bowel sounds, soft Extremities- no calf tenderness Neuro- alert, oriented x 3; EOMI; no facial palsy Skin- warm & dry ASSESSMENT & PLAN: Hospital Course and Plans Initially presentation on admission 11/27/17 was for treatment for Nausea Associated with Diarrhea and Chills with these symptoms attributed to recent chemotherapy as per oncology notes: history metastatic endometrial carcinoma and on weekly carboplatin and paclitaxel. She was in the midst of her first cycle and received two of three scheduled treatments moving forward. 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 CT Abdomen Radiology impressions of "Evidence of significant colitis. No perforation or pneumatosis. Given the distribution this is most likely infectious or inflammatory." However as per Gastroenterology interpretation of the scan, there is concern for bleeding if the colon mucosa and and transferred to the ICU for further monitoring. -12/01/17 A low-grade bleeding foci within the hepatic flexure of the colon and second portion of the duodenal sweep on GI bleed nuclear scan -upper endoscopy performed on 12/01/17 -As per 12/02/17 GI evaluation: "She underwent EGD yesterday after the bleeding scan results suggested possible bleeding in the duodenum as well as in the colon. The EGD revealed serpiginous shallow ulcers throughout the duodenum, no active bleeding. She remained hemodynamically stable with good blood counts. I presume that she would also have lesions throughout her distal small bowel or colon with pneumatosis and hemorrhage also brings the possibility that she could have a second issue going on which would be ischemia. 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 Accepted by [facility] by hospitalist Dr. Dukes for further management Chronic Afib with RVR initial heart rate on admission was in the 130's had not been taking her metoprolol due to nausea/fatigue ECHO * The rhythm is atrial fibrillation. * Ejection Fraction = 60-65%. * The left atrium is severely dilated. * There is mild tricuspid regurgitation. * Aortic valve sclerosis mild, without significant aortic valvular stenosis. * There is mild mitral regurgitation. -Rate controlled after being off Cardiazem drip -currently on metoprolol -currently off anticoagulation monitor electrolytes for hypokalemia or hypomagnesemia and replete as needed Endometrial Carcinoma history metastatic endometrial carcinoma and on weekly carboplatin and paclitaxel. Follows with [facility] Hematology/Oncology Neutropenia resolving initial neutropenia likely from chemotherapy DVT ppx: SCDs Full Code Disposition: Have discussed with [facility] in [place] that [facility] lacking in Interventional radiology services to definitively stop the the GI bleed Accepted by [facility] by hospitalist Dr. Dukes for further management Vital Signs: Date Time Temp Pulse Resp B/P (MAP) Pulse Ox O2 Delivery O2 Flow Rate FiO2 12/02/17 12:01 36.8 95 22 118/93 (101) 95 Room Air 12/02/17 11:31 102 145/105 12/02/17 11:03 118 20 145/109 (121) 90 Room Air 12/02/17 10:01 89 24 148/87 (107) 94 Room Air 12/02/17 09:01 84 19 146/78 (100) 98 Room Air 12/02/17 08:51 36.7 89 20 140/81 (100) 98 Room Air 12/02/17 08:30 Room Air 12/02/17 06:24 91 111/71 12/02/17 06:00 76 17 111/71 (84) 95 12/02/17 05:01 74 14 117/70 (86) 98 12/02/17 03:01 73 17 113/60 (77) 98 Room Air 12/02/17 02:01 37.0 74 15 115/68 (84) 97 12/02/17 01:02 78 109/63 12/02/17 01:01 72 18 109/63 (78) 100 12/02/17 00:01 81 18 142/64 (90) 97 12/01/17 23:00 91 18 126/70 (88) 99 Room Air 12/01/17 22:01 36.7 90 25 101/64 (76) 92 Room Air 12/01/17 21:01 85 18 126/79 (95) 100 Room Air 12/01/17 20:00 Room Air 12/01/17 19:01 84 21 135/87 (103) 99 Room Air 12/01/17 18:00 95 15 164/107 (126) 100 12/01/17 17:41 96 164/83 12/01/17 17:30 96 20 164/83 (110) 99 12/01/17 17:00 36.6 108 20 169/99 (122) 100 12/01/17 17:00 Room Air 12/01/17 16:35 87 18 150/89 (109) 99 Room Air 12/01/17 16:20 93 18 123/94 (104) 96 Room Air 12/01/17 16:04 87 18 91/57 (68) 91 Room Air 12/01/17 15:42 36.6 88 18 184/90 (121) 98 Room Air 12/01/17 15:12 105 29 177/95 (122) 99 Room Air 12/01/17 15:00 90 19 150/125 (133) 99 Room Air Lab Results: Results Past 24 Hours Test 12/01/17 17:57 12/01/17 23:04 12/02/17 04:34 Range/Units Hemoglobin 9.8 9.3 9.2 12.0-16.0 g/dL Hematocrit 28.4 26.6 26.2 37-47 % White Blood Count 7.33 4.8-10.8 K/uL Red Blood Count 2.80 4.2-5.4 M/uL Mean Corpuscular Volume 93.6 80-100 fL Mean Corpuscular Hemoglobin 32.9 25-34 pg Mean Corpuscular Hemoglobin Concent 35.1 32-36 g/dl Platelet Count 124 130-400 K/uL Mean Platelet Volume 10.9 7.4-10.4 fL RDW Standard Deviation 49.9 36.4-46.3 fL RDW Coefficient of Variation 14.5 11.5-14.5 % Neutrophils % (Manual) 66.0 % Lymphocytes % (Manual) 15.7 % Monocytes % (Manual) 5.2 % Basophils % (Manual) 0.9 % Metamyelocytes % 2.6 % Myelocytes % 9.6 % Neutrophils # (Manual) 4.84 1.4-6.5 K/uL Total Absolute Neutrophils 4.84 1.4-6.5 K/uL Lymphocytes # (Manual) 1.15 1.2-3.4 K/uL Total Absolute Lymphocytes 1.15 1.2-3.4 K/uL Monocytes # (Manual) 0.38 0.11-0.59 K/uL Basophils # (Manual) 0.07 0-0.2 K/uL Metamyelocytes # 0.19 0-0 K/uL Myelocytes # 0.70 0-0 K/uL Toxic Granulation 2+ Echinocytes 1+ Prothrombin Time 10.9 9.0-12.0 SECONDS Prothromb Time International Ratio 1.0 0.9-1.1 Sodium Level 140 136-145 mmol/L Potassium Level 3.3 3.5-5.1 mmol/L Chloride Level 110 98-107 mmol/L Carbon Dioxide Level 23 21-32 mmol/L Anion Gap 7.0 3-11 mmol/L Blood Urea Nitrogen 7 7-18 mg/dl Creatinine 0.56 0.60-1.20 mg/dl Est Creatinine Clear Calc Drug Dose 90.5 ml/min Estimated GFR () 104.2 Estimated GFR (Non- 89.9 BUN/Creatinine Ratio 12.8 10-20 Random Glucose 84 70-99 mg/dl Calcium Level 7.5 8.5-10.1 mg/dl Magnesium Level 1.5 1.8-2.4 mg/dl
[2017-12-02] MEDS ORDERED: MAGNESIUM SULFATE 1GM / D5W 100 ML IV STA ×2 (12:40→17:09)
[2017-12-02] MEDS ORDERED: VLT500 PO (12:45)
[2017-12-02] MEDS ORDERED: MGNO400 PO (12:45)
--- NOTE | 2017-12-02 12:46 | Discharge Instructions ---
Discharge Instructions Date of Service Dec 02, 2017. Admission Reason for Admission: Atrial Fibrillation With Rvr,Diarrhea Discharge Discharge Diagnosis / Problem: GI bleed, Colitis, Supratherapeutic INR from coumadin - reversed Discharge Goals Goal(s): Improve disease control Activity Recommendations Activity Limitations: per Instructions/Follow-up section . Instructions / Follow-Up Instructions / Follow-Up Hospital Course and Plans Initially presentation on admission 11/27/17 was for treatment for Nausea Associated with Diarrhea and Chills with these symptoms attributed to recent chemotherapy as per oncology notes: history metastatic endometrial carcinoma and on weekly carboplatin and paclitaxel. She was in the midst of her first cycle and received two of three scheduled treatments moving forward. 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 CT Abdomen Radiology impressions of "Evidence of significant colitis. No perforation or pneumatosis. Given the distribution this is most likely infectious or inflammatory." However as per Gastroenterology interpretation of the scan, there is concern for bleeding if the colon mucosa and and transferred to the ICU for further monitoring. -12/01/17 A low-grade bleeding foci within the hepatic flexure of the colon and second portion of the duodenal sweep on GI bleed nuclear scan -upper endoscopy performed on 12/01/17 -As per 12/02/17 GI evaluation: "She underwent EGD yesterday after the bleeding scan results suggested possible bleeding in the duodenum as well as in the colon. The EGD revealed serpiginous shallow ulcers throughout the duodenum, no active bleeding. She remained hemodynamically stable with good blood counts. I presume that she would also have lesions throughout her distal small bowel or colon with pneumatosis and hemorrhage also brings the possibility that she could have a second issue going on which would be ischemia. 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 in [place] that [facility] lacking in Interventional radiology services to definitively stop the the GI bleed. Accepted by [facility] by hospitalist Dr. Dukes for further management Chronic Afib with RVR initial heart rate on admission was in the 130's had not been taking her metoprolol due to nausea/fatigue ECHO * The rhythm is atrial fibrillation. * Ejection Fraction = 60-65%. * The left atrium is severely dilated. * There is mild tricuspid regurgitation. * Aortic valve sclerosis mild, without significant aortic valvular stenosis. * There is mild mitral regurgitation. -Rate controlled after being off Cardiazem drip -currently on metoprolol -currently off anticoagulation monitor electrolytes for hypokalemia or hypomagnesemia and replete as needed Endometrial Carcinoma history metastatic endometrial carcinoma and on weekly carboplatin and paclitaxel. Follows with [facility] Hematology/Oncology Neutropenia resolving initial neutropenia likely from chemotherapy DVT ppx: SCDs Full Code Disposition: Have discussed with [facility] that [facility] lacking in Interventional radiology services to definitively stop the the GI bleed Accepted by [facility] by hospitalist Dr. Dukes for further management Current Hospital Diet Patient's current hospital diet: Clear Liquid Diet Discharge Diet Recommended Diet: Clear Liquid Diet Procedures Procedures Performed: Esophagogastroduodenoscopy Dr Harvey Pending Studies Studies pending at discharge: yes List of pending studies: CMV titers Laboratory Results 12/02/17 04:34 Red Blood Count 2.80, Mean Corpuscular Volume 93.6, Mean Corpuscular Hemoglobin 32.9, Mean Corpuscular Hemoglobin Concent 35.1, Mean Platelet Volume 10.9 12/02/17 04:34 Test 11/27/17 14:25 11/27/17 20:36 11/27/17 23:50 11/28/17 05:16 Polychromasia 1+ Peripheral Blood Smear Path Consult Phosphorus Level 2.6 mg/dl (2.5-4.9) Lipase 98 U/L (73-393) Thyroid Stimulating Hormone (TSH) 0.540 uIu/ml (0.300-4.500) Troponin I < 0.015 ng/ml (0-0.045) Warfarin (Coumadin) Level 0.3 mcg/mL (1.0-10.0) Urine Color YELLOW Urine Appearance CLEAR (CLEAR) Urine pH 5.0 (4.5-7.5) Urine Specific [place] 1.016 (1.000-1.030) Urine Protein NEG (NEG) Urine Glucose (UA) NEG (NEG) Urine Ketones 1+ (NEG) Urine Occult Blood 2+ (NEG) Urine Nitrite NEG (NEG) Urine Bilirubin NEG (NEG) Urine Urobilinogen NEG (NEG) Urine Leukocyte Esterase SMALL (NEG) Urine WBC (Auto) 10-30 /hpf (0-5) Urine RBC (Auto) 10-30 /hpf (0-4) Urine Hyaline Casts (Auto) 1-5 /lpf (0-5) Urine Epithelial Cells (Auto) 20-30 /lpf (0-5) Urine Bacteria (Auto) NEG (NEG) Nucleated RBC Absolute Count (auto) 0.43 K/uL (0-0) Promyelocytes % 5.2 % Nucleated Red Blood Cells % 13.2 % Promyelocytes # 0.17 K/uL (0-0) Test 11/30/17 06:25 11/30/17 07:05 11/30/17 09:00 11/30/17 15:59 Blast Cells % 0.9 % Blast Cells # 0.06 K/uL (0-0) Blood Smear Review Absolute Reticulocyte Count 0.03 10^6/uL (0.02-0.10) Percent Reticulocyte Count 1.2 % (0.5-2.0) Iron Level 86 mcg/dl (35-150) Total Iron Binding Capacity 140 mcg/dl (250-450) Bedside Glucose 108 mg/dl (70-90) Stool Occult Blood POSITIVE (NEGATIVE) Lactic Acid Level 1.4 mmol/L (0.4-2.0) Test 12/01/17 04:56 12/02/17 04:34 12/02/17 12:35 Toxic Vacuolation 2+ Total Bilirubin 0.6 mg/dl (0.2-1) Aspartate Amino Transf (AST/SGOT) 15 U/L (15-37) Alanine Aminotransferase (ALT/SGPT) 20 U/L (12-78) Alkaline Phosphatase 51 U/L (45-117) Total Protein 4.1 gm/dl (6.4-8.2) Albumin 2.2 gm/dl (3.4-5.0) Globulin 1.9 gm/dl (2.5-4.0) Albumin/Globulin Ratio 1.2 (0.9-2) White Blood Count 7.33 K/uL (4.8-10.8) Red Blood Count 2.80 M/uL (4.2-5.4) Hemoglobin 9.2 g/dL (12.0-16.0) Hematocrit 26.2 % (37-47) Mean Corpuscular Volume 93.6 fL (80-100) Mean Corpuscular Hemoglobin 32.9 pg (25-34) Mean Corpuscular Hemoglobin Concent 35.1 g/dl (32-36) Platelet Count 124 K/uL (130-400) Mean Platelet Volume 10.9 fL (7.4-10.4) RDW Standard Deviation 49.9 fL (36.4-46.3) RDW Coefficient of Variation 14.5 % (11.5-14.5) Neutrophils % (Manual) 66.0 % Lymphocytes % (Manual) 15.7 % Monocytes % (Manual) 5.2 % Basophils % (Manual) 0.9 % Metamyelocytes % 2.6 % Myelocytes % 9.6 % Neutrophils # (Manual) 4.84 K/uL (1.4-6.5) Total Absolute Neutrophils 4.84 K/uL (1.4-6.5) Lymphocytes # (Manual) 1.15 K/uL (1.2-3.4) Total Absolute Lymphocytes 1.15 K/uL (1.2-3.4) Monocytes # (Manual) 0.38 K/uL (0.11-0.59) Basophils # (Manual) 0.07 K/uL (0-0.2) Metamyelocytes # 0.19 K/uL (0-0) Myelocytes # 0.70 K/uL (0-0) Toxic Granulation 2+ Echinocytes 1+ Prothrombin Time 10.9 SECONDS (9.0-12.0) Prothromb Time International Ratio 1.0 (0.9-1.1) Anion Gap 7.0 mmol/L (3-11) Est Creatinine Clear Calc Drug Dose 90.5 ml/min Estimated GFR () 104.2 Estimated GFR (Non- 89.9 BUN/Creatinine Ratio 12.8 (10-20) Calcium Level 7.5 mg/dl (8.5-10.1) Date/Time Source Procedure Growth Status 11/27/17 18:35 Blood Blood Culture - Preliminary NO GROWTH TO DATE. Resulted 11/30/17 16:55 Nasal MRSA DNA Surveillance Screen - Final Specimen Negative for MRSA by DNA Probe Complete 11/30/17 18:01 Stool Shiga Toxin Test - Preliminary Resulted 11/30/17 18:01 Stool Culture - Preliminary Sarah Albicans Resulted 11/27/17 23:50 Urine , Clean Catch Urine Culture - Final Gram Negative Bacilli Complete Medical Emergencies . Who to Call and When: Medical Emergencies: If at any time you feel your situation is an emergency, please call 911 immediately. . Non-Emergent Contact Non-Emergency issues call your: Primary Care Provider Call Non-Emergent contact if: you have any medication questions . . "Provider Documentation" section prepared by Ron Cavanaugh. .
--- NOTE | 2017-12-02 12:49 | Discharge Summary ---
Discharge Summary Date of Service Dec 02, 2017. 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 Postoperatively she received 6 cycles of Carbo/Taxol with the [facility] ( completed 11/2014), followed by external beam and [address] HDR VCBT completed by Dr. Ivy (completed 02/2015). Currently on chemo last one was last Monday. Pt said that since her last chemotherapy, he has been having nausea and watery diarrhea. Pt said that anything she eats, she has diarrhea. she said that she had more than 20 episodes of diarrhea per day. She said that water seems to make her nausea and diarrhea worst. she said that she feels very weak with no energy. She said that she does have chills. She said that she has not been taking her meds because she feels so weak to get out of bed to take them. She said that her coumadin was on hold because her INR was above 4. She said that she was in the ER last for similar complaints and was given IVF and discharged. In the ER she was in Afib with HR max in the 130's and started on Cardizem drip. Denies any chest pain, palpitation, dizziness, fever and SOB. Physical Exam (per Admitting): General Appearance: WD/WN, no apparent distress Head: normocephalic, atraumatic Eyes: PERRL, EOMI ENT: hearing grossly normal Neck: no JVD, trachea midline Respiratory/Chest: lungs clear, no respiratory distress, no accessory muscle use Cardiovascular: no JVD, + irregularly irregular Abdomen/GI: normal bowel sounds, non tender Back: no CVA tenderness Extremities/Musculoskelatal: no calf tenderness Neurologic/Psych: no motor/sensory deficits, alert, oriented x 3 Skin: warm/dry, no rash Hospital Course Hospital Course and Plans Initially presentation on admission 11/27/17 was for treatment for Nausea Associated with Diarrhea and Chills with these symptoms attributed to recent chemotherapy as per oncology notes: history metastatic endometrial carcinoma and on weekly carboplatin and paclitaxel. She was in the midst of her first cycle and received two of three scheduled treatments moving forward. 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 CT Abdomen Radiology impressions of "Evidence of significant colitis. No perforation or pneumatosis. Given the distribution this is most likely infectious or inflammatory." However as per Gastroenterology interpretation of the scan, there is concern for bleeding if the colon mucosa and and transferred to the ICU for further monitoring. -12/01/17 A low-grade bleeding foci within the hepatic flexure of the colon and second portion of the duodenal sweep on GI bleed nuclear scan -upper endoscopy performed on 12/01/17 -As per 12/02/17 GI evaluation: "She underwent EGD yesterday after the bleeding scan results suggested possible bleeding in the duodenum as well as in the colon. The EGD revealed serpiginous shallow ulcers throughout the duodenum, no active bleeding. She remained hemodynamically stable with good blood counts. I presume that she would also have lesions throughout her distal small bowel or colon with pneumatosis and hemorrhage also brings the possibility that she could have a second issue going on which would be ischemia. 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 in [place] that [facility] lacking in Interventional radiology services to definitively stop the the GI bleed. Accepted by [facility] by hospitalist Dr. Dukes for further management Chronic Afib with RVR initial heart rate on admission was in the 130's had not been taking her metoprolol due to nausea/fatigue ECHO * The rhythm is atrial fibrillation. * Ejection Fraction = 60-65%. * The left atrium is severely dilated. * There is mild tricuspid regurgitation. * Aortic valve sclerosis mild, without significant aortic valvular stenosis. * There is mild mitral regurgitation. -Rate controlled after being off Cardiazem drip -currently on metoprolol -currently off anticoagulation monitor electrolytes for hypokalemia or hypomagnesemia and replete as needed Endometrial Carcinoma history metastatic endometrial carcinoma and on weekly carboplatin and paclitaxel. Follows with [facility] Hematology/Oncology Neutropenia resolving initial neutropenia likely from chemotherapy DVT ppx: SCDs Full Code Disposition: Have discussed with [facility] [place] that [facility] lacking in Interventional radiology services to definitively stop the the GI bleed Accepted by [facility] by hospitalist Dr. Dukes for further management Total time spent on discharge = 40 minutes This includes examination of the patient, discharge planning, medication reconciliation, and communication with other providers. Discharge Instructions see above
[2017-12-03] VITALS (9 sets, daily range): BP systolic 85–123; BP diastolic 43–72; PULSE 68–94; TEMP 36.7–36.8; O2SAT 95–98
[2017-12-03 04:36] LABS: HEMATOCRIT 25.6 % (37-47); HEMOGLOBIN 8.9 g/dL (12.0-16.0); MEAN CELL VOLUME 93.8 fL (80-100); MEAN CORPUSCULAR HEMOGLOBIN 32.6 pg (25-34); MEAN CORPUSCULAR HGB CONC 34.8 g/dl (32-36); PLATELET COUNT 120 K/uL (130-400); RED CELL DISTRIBUTION WIDTH CV 14.4 % (11.5-14.5); RED CELL DISTRIBUTION WIDTH SD 48.9 fL (36.4-46.3); WHITE BLOOD COUNT 6.16 K/uL (4.8-10.8)
[2017-12-03 04:48] LABS: INR 1.1 (0.9-1.1)
[2017-12-03 04:54] LABS: CALCIUM 7.6 mg/dl (8.5-10.1); CREATININE 0.55 mg/dl (0.60-1.20); POTASSIUM 3.3 mmol/L (3.5-5.1)
[2017-12-03] MEDS: METOPROLOL TARTRATE 1 MG/ML VIAL IV. SCH ×2 (06:49)
[2017-12-03] MEDS ORDERED: POTASSIUM CHLORIDE 20 MEQ TABCR PO STA (07:21)
[2017-12-03] MEDS ORDERED: NURSING VERBAL MED ORDER ONE (07:45)
[2017-12-03] MEDS ORDERED: MAGNESIUM SULFATE 1GM / D5W 100 ML IV STA (07:59)
[2017-12-03] MEDS ORDERED: POTASSIUM CHLORIDE 20 MEQ/15 ML UDC PO ONE (08:00)
== END 2017-12-03 08:30 | disposition short-term general hospital (02) | DRG 394 ==
LOC: C.EDB 13:25 → C.2T 19:13 → ENRESERV 19:41 → C.2T 22:17 → ENRESERV 11-30 14:37 → C.MSICU 11-30 16:19
PROVIDERS: ADMIT Internal Medicine; ATTEND Hospitalist
PROC: 0DJ08ZZ Inspection of Upper Intestinal Tract, Via Natural or Artificial Opening Endoscopic (ICD-10-PCS; principal; 2017-12-01 15:37)
DX: K52.1 Toxic gastroenteritis and colitis (principal); K92.2 Gastrointestinal hemorrhage, unspecified; D70.2 Other drug-induced agranulocytosis; D68.32 Hemorrhagic disorder due to extrinsic circulating anticoagulants; C54.1 Malignant neoplasm of endometrium; T45.1X5A Adverse effect of antineoplastic and immunosuppressive drugs, initial encounter; E86.0 Dehydration; I48.2 Chronic atrial fibrillation; Z79.82 Long term (current) use of aspirin; Z79.01 Long term (current) use of anticoagulants; E78.5 Hyperlipidemia, unspecified; Z85.42 Personal history of malignant neoplasm of other parts of uterus; Z92.3 Personal history of irradiation; K26.9 Duodenal ulcer, unspecified as acute or chronic, without hemorrhage or perforation; Z80.0 Family history of malignant neoplasm of digestive organs; E83.42 Hypomagnesemia; E88.09 Other disorders of plasma-protein metabolism, not elsewhere classified; E87.6 Hypokalemia; Y92.009 Unspecified place in unspecified non-institutional (private) residence as the place of occurrence of the external cause